=== PATIENT | male | born 1945 | race Caucasian/White ===

== ENCOUNTER → 2017-09-25 07:27 | Outpatient (CLI) | payer OTHER, SELFPAY ==
[2017-09-25 09:29] LABS: Add Manual Diff / Slide Review NO; Basophils Percent Auto 0.7 % (0-2); Eosinophils Percent Auto 2.4 % (2-4); Hematocrit 43.4 % (41-53); Hemoglobin 14.9 g/dL (13.5-17.5); Mean Corpuscular HGB Conc 34.4 % (30-36); Mean Corpuscular Volume 87.3 fL (80-100); Monocytes Percent Auto 6.7 % (3-14); Neutrophils Absolute Auto 4500 /uL (3000-5900); Neutrophils Percent Auto 68.2 % (50-75); Platelet Count 300 X10^3/uL (150-400); Red Blood Cell Count 4.97 X10^6/uL (4.5-5.9); Red Cell Distribution Width 12.4 % (11.6-14.8); White Blood Cell Count 6.6 X10^3/uL (4.5-11.0)
[2017-09-25 09:40] LABS: BUN Creatinine Ratio 28.9 (6-22); Blood Urea Nitrogen 26 mg/dL (9-20); Calcium 9.5 mg/dL (8.4-10.2); Carbon Dioxide 24 mmol/L (22-32); Chloride 104 mmol/L (98-107); Cholesterol 148 mg/dL (140-199); Estimated Glomerular Filt Rate > 60.0 mL/min (>60); Glucose 96 mg/dL (80-110); HDL Cholesterol 43 mg/dL (40-60); HEMOLYSIS < 15 (0-50); LDL Cholesterol Calculated 85 mg/dL (<100); Potassium 4.5 mmol/L (3.4-5.1); Sodium 141 mmol/L (137-145); Triglycerides 99 mg/dL (35-150)
== END ==
PROVIDERS: PCP Internal Medicine; Visit Provider Internal Medicine Cardiovascular Disease
DX: I10 Essential (primary) hypertension (principal); E78.5 Hyperlipidemia, unspecified; F41.9 Anxiety disorder, unspecified; H91.93 Unspecified hearing loss, bilateral
CPT/HCPCS: 36415; 80048; 80061; 85025

== ENCOUNTER → 2018-08-29 14:40 | Outpatient (CLI) | payer OTHER, SELFPAY | PROVIDERS: Family Provider Internal Medicine; PCP Internal Medicine; Visit Provider Physician Assistant | DX: N39.0 Urinary tract infection, site not specified (principal); R31.9 Hematuria, unspecified | CPT/HCPCS: 87086 ==

== ENCOUNTER → 2018-11-03 07:30 | Outpatient (CLI) | payer OTHER, SELFPAY ==
[2018-11-03 08:35] LABS: Add Manual Diff / Slide Review NO; Basophils Absolute Auto 0 /uL (0-100); Basophils Percent Auto 0.7 % (0-2); Eosinophils Absolute Auto 200 /uL (0-450); Eosinophils Percent Auto 3.6 % (2-4); Hematocrit 42.1 % (41-53); Hemoglobin 14.2 g/dL (13.5-17.5); Lymphocytes Absolute Auto 1300 /uL (1100-4500); Mean Corpuscular HGB Conc 33.7 % (30-36); Monocytes Absolute Auto 500 /uL (0-900); Monocytes Percent Auto 9.2 % (3-14); Neutrophils Absolute Auto 3000 /uL (1500-7000); Neutrophils Percent Auto 60.5 % (50-75); Platelet Count 238 X10^3/uL (150-400); Red Blood Cell Count 4.89 X10^6/uL (4.5-5.9); Red Cell Distribution Width 14.4 % (11.6-14.8); White Blood Cell Count 4.9 X10^3/uL (4.5-11.0)
[2018-11-03 09:00] LABS: BUN Creatinine Ratio 26.7 (6-22); Blood Urea Nitrogen 24 mg/dL (9-20); Calcium 9.6 mg/dL (8.4-10.2); Carbon Dioxide 23 mmol/L (22-32); Chloride 104 mmol/L (98-107); Cholesterol 137 mg/dL (140-199); Estimated Glomerular Filt Rate > 60.0 mL/min (>60); Glucose 95 mg/dL (80-110); HDL Cholesterol 48 mg/dL (40-60); HEMOLYSIS < 15 (0-50); LDL Cholesterol Calculated 74 mg/dL (<100); Potassium 4.7 mmol/L (3.4-5.1); Sodium 139 mmol/L (137-145); Triglycerides 77 mg/dL (35-150)
== END ==
PROVIDERS: Family Provider Internal Medicine; PCP Internal Medicine; Visit Provider Internal Medicine Cardiovascular Disease
DX: I10 Essential (primary) hypertension (principal)
CPT/HCPCS: 36415; 80048; 80061; 85025

== ENCOUNTER → 2019-01-15 13:37 | Outpatient (CLI) | payer OTHER, SELFPAY ==
--- NOTE | 2019-01-15 | DI.ECHO.S_ITS ---
[facility] +---------+ : : [address] : : : : [id number] : : : : Phone: [phone] Echocardiogram Report + + :Name: BABAR KAT Study Date: 01/15/2019 Height: 70 in : :[facility] Weight: 173 lb : : Gender: Male BSA: 2.0 m2 : :: 1945 Age: 73 yrs BP: 148/78 mmHg: :Reason For Study: Murmur : :Ordering Physician: Frida : :Guru Servin Performed By: Gege Noriega : :Referring: Dr. Norberto Hamm : + + Interpretation Summary 1) Normal left ventricular size, thickness, walltion, and systolic function (EF 60-65%). 2) Mildy enlarged right ventricle with borderline reduced systolic function. 3) Mild aortic stenosis present (valve area 1.8cm2, mean gradient 16mmHg). 4) No prior echo available for comparison. Procedure: A two-dimensional transthoracic echocardiogram with color flow and Doppler was performed. The study quality was technically good. There is no prior echocardiogram noted for this patient. The patient was in normal sinus rhythm during the exam. Left Ventricle: The left ventricle is normal in size, wall thickness, and systolic function without any focal wall motion abnormalities. The ejection fraction is estimated to be 60-65%. Diastolic function could not be accurately assessed due to unobtainable data. Right Ventricle: The right ventricle is mildly dilated. Right ventricular systolic function is borderline reduced. Atria: The left atrium is mildly dilated. Right atrial size is normal. The interatrial septum is intact with no evidence for an atrial septal defect. Mitral Valve: The mitral valve is normal in structure and function. There is no mitral regurgitation noted. Aortic Valve: The calculated aortic valve area is 1.8 cm2. The aortic valve area is 1.6 centimeters squared by planimetry. The peak aortic velocity is 2.7 m/sec. The aortic valve mean gradient is 16 mmHg. Severity ratio is 0.45. There is mild aortic stenosis. No aortic regurgitation is present. Tricuspid Valve: The tricuspid valve is normal in structure and function. No tricuspid regurgitation. Pulmonic Valve: The pulmonic valve is normal in structure and function. There is no pulmonic valvular regurgitation. Great Vessels: The aortic root is normal size. The dimensions of the ascending aorta are normal. The aortic arch is normal in size. The IVC is of normal diameter and collapses greater than 50% with a sniff. This suggests a low right atrial pressure of 3 mm Hg. Pericardium/ Pleura There is no pericardial effusion. There is no pleural effusion. MMode/2D Measurements & Calculations LVIDd: 5.2 cm LVOT diam: 2.3 cm LVIDs: 3.0 cm Ao root diam: 3.7 cm FS: 43.3 % Aortic Jxn: 3.2 cm EPSS: 0.38 cm asc Aorta Diam: 3.4 cm IVSd: 1.0 cm Ao Arch Diam (Prox Trans): 3.3 cm LVPWd: 1.1 cm LV pinto. diameter/BSA (cm/m^2): 2.7 LV sys. diameter/BSA (cm/m^2): 1.5 LA dimension: 3.9 cm RA long axis: 5.2 cm LA A2 area: 22.3 cm2 RA area: 18.9 cm2 LA A4 area: 24.7 cm2 RA vol: 57.9 ml LA length (vol): 5.5 cm RA : 29.5 ml/m2 LA vol: 84.2 ml IVC diam: 1.4 cm LA vol index: 42.9 ml/m2 RVDd major: 7.3 cm RVD1 (basal): 5.4 cm RVD2 (mid): 3.9 cm ELOY (plan): 1.6 cm2 Doppler Measurements & Calculations Ao V2 max: 274.1 cm/sec LVOT Max Rocky: 114.0 cm/sec Ao V2 mean: 186.4 cm/sec LV V1 max P.2 mmHg Ao max P.1 mmHg LV V1 VTI: 25.6 cm Ao mean P.1 mmHg ELOY(I,D): 1.9 cm2 Ao V2 VTI: 56.9 cm ELOY(V,D): 1.8 cm2 sev ratio: 0.45 ELOY indexed to BSA (cm^2/m^2): 0.99 MV E max rocky: 115.5 cm/sec PA V2 max: 124.4 cm/sec MV A max rocky: 135.7 cm/sec PA V2 mean: 94.2 cm/sec MV E/A: 0.85 PA mean P.8 mmHg Med Peak E' Rocky: 7.8 cm/sec PA Accel Time: 0.16 sec E/E' med: 14.8 Lat Peak E' Rocky: 7.7 cm/sec E/E' lat: 15.0 E/e' average: 14.9 MV dec time: 0.23 sec MV P1/2t: 70.4 msec MV P1/2t max rocky: 115.8 cm/sec SV(LVOT): 110.3 ml MVA(2t): 3.1 cm2 Reading Physician:09:37 PM
== END ==
PROVIDERS: Family Provider Internal Medicine; PCP Internal Medicine; Visit Provider Internal Medicine Cardiovascular Disease
DX: I35.0 Nonrheumatic aortic (valve) stenosis (principal); R01.1 Cardiac murmur, unspecified
CPT/HCPCS: 93306

== ENCOUNTER → 2019-08-19 10:53 | Outpatient (CLI) | payer OTHER, SELFPAY ==
[2019-08-19 13:31] LABS: Add Manual Diff / Slide Review NO; Basophils Absolute Auto 0 /uL (0-100); Basophils Percent Auto 0.5 % (0-2); Eosinophils Absolute Auto 0 /uL (0-450); Eosinophils Percent Auto 0.4 % (2-4); Hematocrit 39.8 % (41-53); Hemoglobin 13.6 g/dL (13.5-17.5); Lymphocytes Absolute Auto 700 /uL (1100-4500); Lymphocytes Percent Auto 11.9 % (25-40); Mean Corpuscular HGB Conc 34.3 % (30-36); Mean Corpuscular Hemoglobin 30.1 PG (26-34); Mean Corpuscular Volume 87.9 fL (80-100); Monocytes Absolute Auto 500 /uL (0-900); Monocytes Percent Auto 8.6 % (3-14); Neutrophils Absolute Auto 4700 /uL (1500-7000); Neutrophils Percent Auto 78.6 % (50-75); Platelet Count 237 X10^3/uL (150-400); Red Blood Cell Count 4.53 X10^6/uL (4.5-5.9); Red Cell Distribution Width 12.6 % (11.6-14.8)
[2019-08-19 13:46] LABS: Alanine Aminotransferase 18 IU/L (<50); Albumin 4.2 g/dL (3.5-5.0); Albumin Globulin Ratio 1.5 (1.0-2.8); Alkaline Phosphatase 61 U/L (38-126); Aspartate Aminotransferase 27 IU/L (17-59); BUN Creatinine Ratio 29.4 (6-22); Bilirubin Total 0.3 mg/dL (0.2-1.3); Blood Urea Nitrogen 32 mg/dL (9-20); C-Reactive Protein Quant 2.1 mg/dL (<1.0); Calcium 9.4 mg/dL (8.4-10.2); Carbon Dioxide 24 mmol/L (22-32); Chloride 106 mmol/L (98-107); Creatine Kinase 260 U/L (55-170); Estimated Glomerular Filt Rate > 60.0 mL/min (>60); Globulin 2.8 g/dL (1.7-4.1); Glucose 102 mg/dL (80-110); HEMOLYSIS < 15 (0-50); Sodium 140 mmol/L (137-145)
[2019-08-19 14:01] LABS: Erythrocyte Sedimentation Rate 32 MM/HR (0-15)
[2019-08-19 14:14] LABS: Prostate Specific Antigen Scrn 6.78 ng/mL (0.1-4.0)
[2019-08-19 14:15] LABS: TSH w/ Reflex to FT4 1.23 uIU/mL (0.47-4.68)
[2019-08-21 14:29] LABS: Arsenic 12 ug/L (2-23); Lead, Blood 1 ug/dL (0-4); Mercury, Blood 6.1 ug/L (0.0-14.9)
== END ==
PROVIDERS: Family Provider Internal Medicine; PCP Internal Medicine; Referring Provider Internal Medicine; Visit Provider Internal Medicine
DX: Z12.5 Encounter for screening for malignant neoplasm of prostate (principal); E78.2 Mixed hyperlipidemia; I10 Essential (primary) hypertension; R20.2 Paresthesia of skin; R53.1 Weakness
CPT/HCPCS: 80053; 82550; 83825; 84443; 85025; 85651; 86140; G0103

== ENCOUNTER → 2019-08-26 09:46 | Outpatient (CLI) | payer OTHER, SELFPAY ==
[2019-08-27 08:19] LABS: PSA Free % 30.4 % (.); PSA, Total 2.6 ng/mL (0.0-4.0)
== END ==
PROVIDERS: Family Provider Internal Medicine; PCP Internal Medicine; Referring Provider Internal Medicine; Visit Provider Internal Medicine
DX: R97.20 Elevated prostate specific antigen [PSA] (principal)
CPT/HCPCS: 36415; 84153; 84154

== ENCOUNTER 2019-08-31 09:47 | Emergency (ER) | payer OTHER, SELFPAY ==
[2019-08-31] VITALS (11 sets, daily range): BP systolic 126–174; BP diastolic 65–109; PULSE 66–81; RESP 13–24; TEMP 36.4; O2SAT 97–99
--- NOTE | 2019-08-31 10:04 | ED_ITS ---
HPI - Neuro Symptoms/Deficit General Chief Complaint: Neuro Symptoms/Deficit Stated Complaint: progressive quadraplega,incontience Time Seen by Provider: 08/31/19 09:54 Source: patient and family Mode of arrival: Wheelchair Limitations: no limitations History of Present Illness HPI Narrative: 74-year-old male former smoker with history of hypertension, hyperlipidemia presents with his brother in the chief complaint of progressive worsening constellation of neurologic symptoms over the past 4-6 weeks. He has had increasing weakness of upper and lower extremities which is reported to be equal bilaterally and increasing to the point that he now can no longer ambulate even with the help of a walker. About 10 days ago or so, he lost control of his bladder and has been wearing briefs ever since. He denies any head pain, blurred vision or trouble with speech. He has had no trauma or injury. He denies any fever or shaking chills. He has been seen by his PCP and outpatient imaging is ordered, but patient's symptoms have worsened to the point of needing more prompt evaluation. Onset (ago): week(s) Location: left arm, right arm, left leg, right leg and ataxia History of same: No Severity: severe Quality: weak and constant Relieving factors: none Exacerbating factors: none Context: gradual onset On Anticoagulants: No Associated symptoms: denies other symptoms Treatments Prior to Arrival: none Related Data Home Medications Medication Instructions Recorded Confirmed amlodipine 10 mg tablet 10 mg PO BEDTIME tab 08/19/19 08/31/19 atorvastatin 10 mg tablet 10 mg PO BEDTIME tab 08/19/19 08/31/19 losartan 100 mg tablet 100 mg PO BEDTIME tab 08/19/19 08/31/19 minoxidil 10 mg tablet 10 mg PO QAM tab 08/19/19 08/31/19 Allergies Allergy/AdvReac Type Severity Reaction Status Date / Time clonidine AdvReac Intermediate Fatigue Verified 08/31/19 11:03 metoprolol AdvReac Intermediate Fatigue Verified 08/31/19 11:03 Review of Systems Constitutional Constitutional: Denies chills, Denies fatigue, Denies fever(s), Denies frequent falls, Denies lethargy and Reports weakness Eyes Eyes: Denies change in vision, Denies eye discharge, Denies irritation and Denies loss of vision ENT Ears, Nose, Mouth, and Throat: Denies change in voice, Denies dizziness, Denies neck pain, Denies sore throat and Denies throat swelling Cardiovascular Cardiovascular: Denies chest pain, Denies irregular heart rhythm, Denies lightheadedness, Denies palpitations, Denies dyspnea, Denies dyspnea on exertion and Denies orthopnea Respiratory Respiratory: Denies cough, Denies dyspnea, Denies dyspnea on exertion and Denies wheezing Gastrointestinal Gastrointestinal: Denies abdominal pain, Denies change in bowel habits, Denies d iarrhea, Denies nausea and Denies vomiting Genitourinary Genitourinary: Denies hematuria, Denies flank pain, Denies urinary incontinence and Denies urinary urgency Musculoskeletal Musculoskeletal: Reports abnormal gait, Denies back pain, Denies muscle weakness, Denies neck pain, Denies numbness and Denies tingling Integumentary/Breasts Skin/Breast: Denies pruritus, Denies erythema, Denies rash and Denies wounds Neurologic Neurologic: Reports abnormal gait, Denies behavioral changes, Denies confusion, Denies dizziness, Denies frequent falls, Denies loss of vision, Denies numbness, Denies tingling and Reports weakness Psychiatric Psychiatric: Denies anxiety, Denies behavioral changes, Denies confusion, Denies depression, Denies homicidal ideation and Denies suicidal ideation Endocrine Endocrine: Denies fatigue, Denies flushing and Denies palpitations Hematologic/Lymphatic Hematologic/Lymphatic: Denies easy bruising Allergic/Immunologic Allergic/Immunologic: Denies urticaria, Denies throat swelling and Denies wheezing Patient History Medical History Essential hypertension (Chronic 01/11/15) Mixed hyperlipidemia (Chronic) Social History Smoking Status: Former smoker Smoking Status: Former smoker Exam Narrative Exam Narrative: GENERAL: [74] year old patient appears stated age. Well- nourished, well-developed patient, in mild distress. Weak, trunk appears to be listing to the left HEAD: Atraumatic. Normocephalic. EYES: Pupils equal round and reactive. Extraocular motions intact. No scleral icterus. No injection or drainage. ENT: Nose without bleeding, purulent drainage. Throat without erythema, tonsillar hypertrophy or exudate. Airway patent. NECK: Trachea midline. Non tender CARDIOVASCULAR: Regular rate and rhythm without murmurs, gallops, or rubs. RESPIRATORY: Clear to auscultation. Breath sounds equal bilaterally. No wheezes, rales, or rhonchi. GASTROINTESTINAL: Abdomen soft, non-tender, lower suprapubic fullness. Adult brief on RECTAL: no appreciated rectal tone EXTREMITIES: No edema or joint tenderness. BACK: Nontender without deformity or crepitance. No flank tenderness. NEURO: AOx3. No facial weakness or speech trouble. LUE 3/5 strength, RUE 5/5. LLE 4/5 strength. RLE 5/5. No obvious sensory deficit, perhaps slightly decreased in groin. R patellar reflex 2+. L patellar reflex increased with myoclonus. SKIN: No rash or erythema of visible areas Initial Vital Signs Initial Vital Signs: Vital Signs Temperature 97.6 F 08/31/19 10:04 Pulse Rate 79 08/31/19 10:04 Respiratory Rate 13 08/31/19 10:04 Blood Pressure 171/78 H 08/31/19 10:04 Pulse Oximetry 98 08/31/19 10:04 Course Course Course Narrative: initial call to [facility] neuro to discuss imaging preference prior to ordered. After discussion of case recommendation was to perform MRI head w/wo and C Spine w/wo. Discussion to perform imaging on entire spine, but recommendation against this for now as symptoms include upper extremities. Later in visit it becomes apparent that patient is Rich[place] at which point calls are directed through [facility]. I have also spoken with their neurosurgeon who recommends transfer and addition of decardon 4mg q6. Orders Ordered: ED Orders 08/31/19 10:50 Urinalysis and Microscopic Stat Urine Culture Stat Urine Drug Screen, Rapid Stat 08/31/19 10:55 MR cervical spine wo/w con Stat MR head/brain wo/w con Stat 08/31/19 19:24 Basic Metabolic Panel Stat Sodium Chloride (Normal Saline 0.9%) 1,000 mls @ 150 mls/hr IV CONT CAMERON Last Infusion: 08/31/19 15:08 Dose: 0 mls/hr Documented by: Infusion: 08/31/19 13:58 Dose: 999 mls/hr Documented by: Admin: 08/31/19 10:41 Dose: 150 mls/hr Documented by: LAINEY Sodium Chloride (Normal Saline 0.9%) 1,000 mls @ 150 mls/hr IV BOLUS ONE Stop: 09/01/19 02:09 Last Admin: 08/31/19 19:32 Dose: 150 mls/hr Documented by: LAINEY Discontinued Medications Dexamethasone (Decadron) 4 mg IV NOW ONE Stop: 08/31/19 19:20 Last Admin: 08/31/19 19:32 Dose: 4 mg Documented by: LAINEY Ceftriaxone Sodium/Dextrose (Rocephin) 1 gm in 50 mls @ 100 mls/hr IV NOW ONE Stop: 08/31/19 11:45 Last Infusion: 08/31/19 12:33 Dose: 0 mls/hr Documented by: Admin: 08/31/19 11:54 Dose: 100 mls/hr Documented by: LAINEY Lorazepam (Ativan) 0.5 mg IV NOW ONE Stop: 08/31/19 12:03 Last Admin: 08/31/19 12:06 Dose: 0.5 mg Documented by: LAINEY Lorazepam (Ativan) 1 mg IV NOW ONE Stop: 08/31/19 14:34 Last Admin: 08/31/19 14:45 Dose: 1 mg Documented by: LAINEY Reevaluation(s) Reevaluation #1: patient with impressive urinary retention and upwards of 3L in curtis bag after a few hours. UA notes UTI Vital Signs Vital signs: Vital Signs - 8 hr 08/31/19 12:15 08/31/19 13:30 08/31/19 14:30 Pulse Rate 75 70 77 Respiratory Rate 16 22 18 Blood Pressure [Right Arm] 174/86 H 143/78 H 153/87 H Pulse Oximetry 99 98 98 08/31/19 16:21 08/31/19 17:28 08/31/19 19:00 Pulse Rate 78 77 78 Respiratory Rate 16 20 18 Blood Pressure [Right Arm] 137/74 140/69 143/100 H Pulse Oximetry 99 98 98 MDM - Neuro Symptoms/Deficit Lab Data Result diagrams: 08/31/19 10:25 08/31/19 10:25 Labs: Lab Results 08/31/19 08/31/19 08/31/19 Range/Units 10:25 10:25 10:25 WBC 6.2 (4.5-11.0) X10^3/uL RBC 4.41 L (4.5-5.9) X10^6/uL Hgb 13.2 L (13.5-17.5) g/dL Hct 38.3 L (41-53) % MCV 86.8 (80-100) fL MCH 30.0 (26-34) PG MCHC 34.6 (30-36) % RDW 12.9 (11.6-14.8) % Plt Count 245 (150-400) X10^3/uL Neut % (Auto) 74.8 (50-75) % Lymph % (Auto) 11.0 L (25-40) % [place] % (Auto) 10.5 (3-14) % Eos % (Auto) 3.0 (2-4) % Baso % (Auto) 0.7 (0-2) % Neut # (Auto) 4600 (9075-5940) /uL Lymph # (Auto) 700 L (1184-1180) /uL [place] # (Auto) 700 (0-900) /uL Eos # (Auto) 200 (0-450) /uL Baso # (Auto) 0 (0-100) /uL PT 12.8 H (10.1-12.7) SECONDS INR 1.1 (0.9-1.3) APTT 31 (26.4-36.2) SECONDS Sodium 140 (137-145) mmol/L Potassium 4.9 (3.4-5.1) mmol/L Chloride 108 H (98-107) mmol/L Carbon Dioxide 22 (22-32) mmol/L BUN 38 H (9-20) mg/dL Creatinine 1.34 H (0.66-1.25) mg/dL Estimated GFR 52.1 L (>60) mL/min BUN/Creatinine Ratio 28.4 H (6-22) Glucose 108 (80-110) mg/dL Calcium 9.3 (8.4-10.2) mg/dL Total Creatine Kinase 293 H (55-170) U/L CK-MB (CK-2) 5.98 H (<2.37) ng/mL CK-MB (CK-2) Rel Index 2.0 (1.5-5.0) % Troponin I < 0.012 (0.01-0.034) ng/mL Urine Color Urine Appearance Urine pH (4.5-8.0) Ur Specific [place] (1.000-1.035) Urine Protein (Negative) Urine Glucose (UA) (Negative) g/dL Urine Ketones (NEGATIVE) Urine Occult Blood (Negative) Urine Nitrate (Negative) Urine Bilirubin (NEGATIVE) Urine Urobilinogen (0.2) E.U./dL Ur Leukocyte Esterase (NEGATIVE) Urine RBC (0-5/HPF) Urine WBC (0-5/HPF) Urine Bacteria (None) Ur Culture Indicated? U Opiates 300ng/mL cut (Negative) Ur Oxycodone Screen (Negative) Urine Methadone Screen (Negative) Ur Barbiturates Screen (Negative) U Tricyclic Antidepress (Negative) Ur Phencyclidine Scrn (Negative) Ur Amphetamines Screen (Negative) U Methamphetamines Scrn (Negative) Ur MDMA Scrn (Ecstasy) (Negative) U Benzodiazepines Scrn (Negative) Urine Cocaine Screen (Negative) U Marijuana (THC) Screen (Negative) 08/31/19 08/31/19 Range/Units 10:50 10:50 WBC (4.5-11.0) X10^3/uL RBC (4.5-5.9) X10^6/uL Hgb (13.5-17.5) g/dL Hct (41-53) % MCV (80-100) fL MCH (26-34) PG MCHC (30-36) % RDW (11.6-14.8) % Plt Count (150-400) X10^3/uL Neut % (Auto) (50-75) % Lymph % (Auto) (25-40) % [place] % (Auto) (3-14) % Eos % (Auto) (2-4) % Baso % (Auto) (0-2) % Neut # (Auto) (6222-1452) /uL Lymph # (Auto) (6308-4210) /uL [place] # (Auto) (0-900) /uL Eos # (Auto) (0-450) /uL Baso # (Auto) (0-100) /uL PT (10.1-12.7) SECONDS INR (0.9-1.3) APTT (26.4-36.2) SECONDS Sodium (137-145) mmol/L Potassium (3.4-5.1) mmol/L Chloride (98-107) mmol/L Carbon Dioxide (22-32) mmol/L BUN (9-20) mg/dL Creatinine (0.66-1.25) mg/dL Estimated GFR (>60) mL/min BUN/Creatinine Ratio (6-22) Glucose (80-110) mg/dL Calcium (8.4-10.2) mg/dL Total Creatine Kinase (55-170) U/L CK-MB (CK-2) (<2.37) ng/mL CK-MB (CK-2) Rel Index (1.5-5.0) % Troponin I (0.01-0.034) ng/mL Urine Color Yellow Urine Appearance Cloudy Urine pH 6.5 (4.5-8.0) Ur Specific [place] 1.010 (1.000-1.035) Urine Protein Trace H (Negative) Urine Glucose (UA) Negative (Negative) g/dL Urine Ketones Negative (NEGATIVE) Urine Occult Blood 3+ H (Negative) Urine Nitrate Positive (Negative) Urine Bilirubin Negative (NEGATIVE) Urine Urobilinogen 0.2 (0.2) E.U./dL Ur Leukocyte Esterase 3+ H (NEGATIVE) Urine RBC 1-5/hpf (0-5/HPF) Urine WBC >100/hpf H (0-5/HPF) Urine Bacteria Many (>30) H (None) Ur Culture Indicated? Specimen cultured U Opiates 300ng/mL cut Negative (Negative) Ur Oxycodone Screen Negative (Negative) Urine Methadone Screen Negative (Negative) Ur Barbiturates Screen Negative (Negative) U Tricyclic Antidepress Negative (Negative) Ur Phencyclidine Scrn Negative (Negative) Ur Amphetamines Screen Negative (Negative) U Methamphetamines Scrn Negative (Negative) Ur MDMA Scrn (Ecstasy) Negative (Negative) U Benzodiazepines Scrn Negative (Negative) Urine Cocaine Screen Negative (Negative) U Marijuana (THC) Screen Negative (Negative) Imaging Data CT scan - head: Radiologist's Impression: Thanh Cowan M [address] [address] [address] Scan Report Signed Patient: Thanh Cowan RMR#: [id number] : 6Acct:[id number] Age/Sex: 74 / MDate of Service: 08/31/19 Loc: ED Accession Number: [id number] Procedure: CT head/brain wo con Ordering Provider: Danny Abrams D.O. PROCEDURE: CT HEAD/BRAIN WO CON INDICATIONS: progressive neurologic problem, numbness, tingling TECHNIQUE: Noncontrast 4.5 mm thick angled axial sections acquired from the foramen magnum to the vertex, with coronal and sagittal reformats. For radiation dose reduction, the following was used: automated exposure control, adjustment of mA and/or kV according to patient size. COMPARISON: None. FINDINGS: Image quality: Excellent. CSF spaces: Basal cisterns are patent. No extra-axial fluid collections. The ventricles are symmetric in size and shape. Brain: No intracranial bleeds or masses. There is cerebral volume loss for ag e, with resultant ventricular and sulcal prominence. There are periventricular and deep white matter chronic small vessel ischemic changes. There is intracranial internal carotid artery atherosclerosis. Skull and face: Calvarium and visualized facial bones appear intact, without suspicious lesions. Sinuses: Visualized sinuses and mastoids are clear. IMPRESSION: No acute intracranial disease process. Dictated by: Ann Marie Alcantar MD, PhD on 08/31/2019 at 10:46 Approved by: Ann Marie Alcantar MD, PhD on 08/31/2019 at 10:48 Brain / CSpine MRI: Radiologist's Impression: Thanh Cowan Jean 74 M 1945 [place] [address] Magnetic Resonance Report Signed Patient: Thanh Cowan RMR#: [id number] : 1945cct:[id number] Age/Sex: 74 / MDate of Service: 08/31/19 Loc: ED Accession Number: [id number] Procedure: MR head/brain wo/w con Ordering Provider: Danny Abrams D.O. PROCEDURE: MR HEAD/BRAIN WO/W CON INDICATIONS: progressive unilateral weakness, fatigue, per neuro TECHNIQUE: Noncontrast axial T1 spin echo, axial T2 fast spin echo, sagittal and axial FLAIR, coronal T2 fast spin echo, axial gradient echo, axial diffusion and ADC through the brain. After the administration of contrast, axial and coronal T1 spin echo with fat saturation through the brain. COMPARISON: [facility], , MR CERVICAL SPINE WO/W CON, 08/31/2019, 15:32. [facility], CT, CT HEAD/BRAIN WO CON, 08/31/2019, 10:04. FINDINGS: Image quality: Partially degraded by motion artifact. CSF spaces: Basal cisterns are patent. No extra-axial fluid collections. Ventricles are normal in size and shape. Brain: No midline shift. There is a day 6 mm high T1 signal intensity focus within the left superior anterior parietal lobe. There is a small amount of surrounding curvilinear low gradient echo signal intensity. No abnormal intracranial enhancement. There is cerebral volume loss for age. There is periventricular white matter chronic small vessel ischemic change. The brainstem appears normal. Diffusion-weighted images demonstrate no acute ischemic insults. No chronic ischemic insults. Normal intravascular flow voids are present. Skull and face: Calvarial marrow is normal in signal. Orbits appear normal. Sinuses: Sinuses and mastoids appear clear. IMPRESSION: 1. Small amount of left superior parietal intraparenchymal hemorrhage possibly secondary to underlying cavernoma, hemorrhagic infarct, or parenchymal mass. 2. Followup brain MRI with and without intravenous contrast in one month is recommended to ensure resolution, and to exclude underlying mass lesion. 3. Findings discussed with Dr. Abrams on 08.31.19 at 1628 hrs. Dictated by: Winsome Alvarado M.D. on 08/31/2019 at 16:24 Approved by: Winsome Alvarado M.D. on 08/31/2019 at 16:29 [facility] DATE TYPE STATUS AUTHOR Hx 08/31/19 10:55 Cristina Ortega 08/31/19 10:55 Winsome Alvarado 08/31/19 10:07 Ann Marie Alcantar 01/15/19 00:00 Frida Servin Keysha Cowanjuvenal Padilla, M0 1945 [facility] R11 80.739kg Neuro Symptoms/Deficit Search Chart No Data to Display Fatigue Fatigue ONSET 01/11/15 Today 19:00 Thanh Cowan M 1945 [address] [address] Magnetic Resonance Report Signed Patient: Thanh Cowan RMR#: [id number] : 1945cct:[id number] Age/Sex: 74 / MDate of Service: 08/31/19 Loc: ED Accession Number: [id number] Procedure: MR cervical spine wo/w con Ordering Provider: Danny Abrams D.O. PROCEDURE: MR CERVICAL SPINE WO/W CON INDICATIONS: progressive weakness, numbness, per neuro TECHNIQUE: Noncontrast sagittal T1 spin echo and T2 fast spin echo, sagittal STIR, foraminal oblique sagittal T2 fast spin echo, axial gradient echo or T2 fast spin echo through the cervical spine. After the administration of contrast, axial and sagittal T1 spin echo with fat saturation through the cervical spine. COMPARISON: None. FINDINGS: Image quality: Significantly limited exam secondary to patient motion. Alignment and curvature: There is trace retrolisthesis of C2 on C3, C3 on C4, C4-C5, C5 and C6, C6 on C7, trace anterolisthesis of T1 on T2. Marrow: Marrow is normal in overall signal, without suspicious enhancement. Spinal cord: Visualized spinal cord has normal size and signal. No cerebellar tonsillar herniation. No abnormal intramedullary enhancement. Paraspinous soft tissues: No paravertebral masses or suspicious enhancement. Discs: Severe desiccation is present throughout the cervical spine. C2-3: Mild disc bulge without spinal stenosis. There is at least moderate bilateral foraminal narrowing with uncovertebral hypertrophy. C3-4: Mild disc bulge with severe spinal stenosis and canal flattening. There is at least moderate to severe bilateral foraminal narrowing with uncovertebral hypertrophy. C4-5: Mild disc bulge with severe spinal stenosis and canal flattening. There is severe bilateral foraminal narrowing with uncovertebral hypertrophy. C5-6: Mild disc bulge with severe spinal stenosis and canal flattening. Severe bilateral foraminal narrowing with uncovertebral hypertrophy. C6-7: Mild disc bulge with moderate to severe spinal stenosis. Severe bilateral foraminal narrowing with uncovertebral hypertrophy. C7-T1: Mild disc bulge with moderate to severe spinal stenosis. Foramina are poorly evaluated. There is at least moderate to severe right and moderate left foraminal narrowing with uncovertebral hypertrophy. IMPRESSION: 1. Severely limited exam secondary to motion. 2. Multiple disc bulges. 3. Multilevel severe spinal stenosis secondary to disc bulges. 4. Multilevel moderate to severe foraminal narrowing secondary to uncovertebral arthropathy. Dictated by: Cristina Ortega M.D. on 08/31/2019 at 16:57 Approved by: Cristina Ortega M.D. on 08/31/2019 at 17:00 Critical Care Time Critical Care Time Critical Care Time: Yes Total Critical Care Time: 45 Attestation: The high probability of a clinically significant, sudden or life threatening deterioration of the [Neuro] system(s) required my full and direct attention, intervention and personal management. The aggregate critical care time was 45 minutes. This time is in addition to time spent performing reported procedures but includes the following: x Data Review and interpretation x Patient assessment and monitoring of vital signs x Documentation x Medication orders and management Discharge Plan Departure Patient Disposition: [facility] Clinical Impression: Focal myoclonus, Acute UTI, Acute urinary retention, Cervical spinal stenosis Radiculopathy Qualifiers: Spinal region: unspecified Qualified Code(s): M54.10 - Radiculopathy, site unspecified Prescriptions: No Action losartan 100 mg tablet 100 mg PO BEDTIME RF: 0 amlodipine 10 mg tablet 10 mg PO BEDTIME RF: 0 atorvastatin 10 mg tablet 10 mg PO BEDTIME RF: 0 minoxidil 10 mg tablet 10 mg PO QAM RF: 0 Referrals: Norberto Hamm MD [Primary Care Provider] -
--- NOTE | 2019-08-31 10:07 | DI.CT.S_ITS ---
PROCEDURE: CT HEAD/BRAIN WO CON INDICATIONS: progressive neurologic problem, numbness, tingling TECHNIQUE: Noncontrast 4.5 mm thick angled axial sections acquired from the foramen magnum to the vertex, with coronal and sagittal reformats. For radiation dose reduction, the following was used: automated exposure control, adjustment of mA and/or kV according to patient size. COMPARISON: None. FINDINGS: Image quality: Excellent. CSF spaces: Basal cisterns are patent. No extra-axial fluid collections. The ventricles are symmetric in size and shape. Brain: No intracranial bleeds or masses. There is cerebral volume loss for age, with resultant ventricular and sulcal prominence. There are periventricular and deep white matter chronic small vessel ischemic changes. There is intracranial internal carotid artery atherosclerosis. Skull and face: Calvarium and visualized facial bones appear intact, without suspicious lesions. Sinuses: Visualized sinuses and mastoids are clear. IMPRESSION: No acute intracranial disease process. Dictated by: Ann Marie Alcantar MD, PhD on 08/31/2019 at 10:46 Approved by: Ann Marie Alcantar MD, PhD on 08/31/2019 at 10:48
[2019-08-31 10:34] LABS: Add Manual Diff / Slide Review NO; Basophils Absolute Auto 0 /uL (0-100); Basophils Percent Auto 0.7 % (0-2); Eosinophils Absolute Auto 200 /uL (0-450); Hematocrit 38.3 % (41-53); Hemoglobin 13.2 g/dL (13.5-17.5); Lymphocytes Absolute Auto 700 /uL (1100-4500); Mean Corpuscular HGB Conc 34.6 % (30-36); Mean Corpuscular Volume 86.8 fL (80-100); Monocytes Absolute Auto 700 /uL (0-900); Monocytes Percent Auto 10.5 % (3-14); Neutrophils Absolute Auto 4600 /uL (1500-7000); Neutrophils Percent Auto 74.8 % (50-75); Platelet Count 245 X10^3/uL (150-400); Red Blood Cell Count 4.41 X10^6/uL (4.5-5.9); Red Cell Distribution Width 12.9 % (11.6-14.8); White Blood Cell Count 6.2 X10^3/uL (4.5-11.0)
[2019-08-31 10:38] LABS: INR 1.1 (0.9-1.3); Prothrombin Time 12.8 SECONDS (10.1-12.7)
[2019-08-31 10:41] LABS: PTT Partial Thromboplastin Tim 31 SECONDS (26.4-36.2)
[2019-08-31] MEDS: SODIUM CHLORIDE 0.9% 1,000 ML 150 ML IV ×2 (10:41→19:32)
[2019-08-31 10:43] LABS: BUN Creatinine Ratio 28.4 (6-22); Blood Urea Nitrogen 38 mg/dL (9-20); Calcium 9.3 mg/dL (8.4-10.2); Carbon Dioxide 22 mmol/L (22-32); Chloride 108 mmol/L (98-107); Creatine Kinase 293 U/L (55-170); Estimated Glomerular Filt Rate 52.1 mL/min (>60); Glucose 108 mg/dL (80-110); HEMOLYSIS < 15 (0-50); Potassium 4.9 mmol/L (3.4-5.1); Sodium 140 mmol/L (137-145)
[2019-08-31 10:54] LABS: Troponin I < 0.012 ng/mL (0.01-0.034)
[2019-08-31] MEDS: LIDOCAINE 2% (UROJET) 5 ML GEL (10:55)
--- NOTE | 2019-08-31 10:55 | DI.MRI.S_ITS ---
PROCEDURE: MR HEAD/BRAIN WO/W CON INDICATIONS: progressive unilateral weakness, fatigue, per neuro TECHNIQUE: Noncontrast axial T1 spin echo, axial T2 fast spin echo, sagittal and axial FLAIR, coronal T2 fast spin echo, axial gradient echo, axial diffusion and ADC through the brain. After the administration of contrast, axial and coronal T1 spin echo with fat saturation through the brain. COMPARISON: [facility], MR, MR CERVICAL SPINE WO/W CON, 08/31/2019, 15:32. [facility], CT, CT HEAD/BRAIN WO CON, 08/31/2019, 10:04. FINDINGS: Image quality: Partially degraded by motion artifact. CSF spaces: Basal cisterns are patent. No extra-axial fluid collections. Ventricles are normal in size and shape. Brain: No midline shift. There is a day 6 mm high T1 signal intensity focus within the left superior anterior parietal lobe. There is a small amount of surrounding curvilinear low gradient echo signal intensity. No abnormal intracranial enhancement. There is cerebral volume loss for age. There is periventricular white matter chronic small vessel ischemic change. The brainstem appears normal. Diffusion-weighted images demonstrate no acute ischemic insults. No chronic ischemic insults. Normal intravascular flow voids are present. Skull and face: Calvarial marrow is normal in signal. Orbits appear normal. Sinuses: Sinuses and mastoids appear clear. IMPRESSION: 1. Small amount of left superior parietal intraparenchymal hemorrhage possibly secondary to underlying cavernoma, hemorrhagic infarct, or parenchymal mass. 2. Followup brain MRI with and without intravenous contrast in one month is recommended to ensure resolution, and to exclude underlying mass lesion. 3. Findings discussed with Dr. Abrams on 08.31.19 at 1628 hrs. Dictated by: Winsome Alvarado M.D. on 08/31/2019 at 16:24 Approved by: Winsome Alvarado M.D. on 08/31/2019 at 16:29
--- NOTE | 2019-08-31 10:55 | DI.MRI.S_ITS ---
PROCEDURE: MR CERVICAL SPINE WO/W CON INDICATIONS: progressive weakness, numbness, per neuro TECHNIQUE: Noncontrast sagittal T1 spin echo and T2 fast spin echo, sagittal STIR, foraminal oblique sagittal T2 fast spin echo, axial gradient echo or T2 fast spin echo through the cervical spine. After the administration of contrast, axial and sagittal T1 spin echo with fat saturation through the cervical spine. COMPARISON: None. FINDINGS: Image quality: Significantly limited exam secondary to patient motion. Alignment and curvature: There is trace retrolisthesis of C2 on C3, C3 on C4, C4-C5, C5 and C6, C6 on C7, trace anterolisthesis of T1 on T2. Marrow: Marrow is normal in overall signal, without suspicious enhancement. Spinal cord: Visualized spinal cord has normal size and signal. No cerebellar tonsillar herniation. No abnormal intramedullary enhancement. Paraspinous soft tissues: No paravertebral masses or suspicious enhancement. Discs: Severe desiccation is present throughout the cervical spine. C2-3: Mild disc bulge without spinal stenosis. There is at least moderate bilateral foraminal narrowing with uncovertebral hypertrophy. C3-4: Mild disc bulge with severe spinal stenosis and canal flattening. There is at least moderate to severe bilateral foraminal narrowing with uncovertebral hypertrophy. C4-5: Mild disc bulge with severe spinal stenosis and canal flattening. There is severe bilateral foraminal narrowing with uncovertebral hypertrophy. C5-6: Mild disc bulge with severe spinal stenosis and canal flattening. Severe bilateral foraminal narrowing with uncovertebral hypertrophy. C6-7: Mild disc bulge with moderate to severe spinal stenosis. Severe bilateral foraminal narrowing with uncovertebral hypertrophy. C7-T1: Mild disc bulge with moderate to severe spinal stenosis. Foramina are poorly evaluated. There is at least moderate to severe right and moderate left foraminal narrowing with uncovertebral hypertrophy. IMPRESSION: 1. Severely limited exam secondary to motion. 2. Multiple disc bulges. 3. Multilevel severe spinal stenosis secondary to disc bulges. 4. Multilevel moderate to severe foraminal narrowing secondary to uncovertebral arthropathy. Dictated by: Cristina Ortega M.D. on 08/31/2019 at 16:57 Approved by: Cristina Ortega M.D. on 08/31/2019 at 17:00
[2019-08-31 10:58] LABS: Creatine Kinase MB 5.98 ng/mL (<2.37)
[2019-08-31 11:03] LABS: Appearance Urine UA CLOUDY; Bilirubin Urine UA NEGATIVE (NEGATIVE); Color Urine UA YELLOW; Glucose Urine UA NEGATIVE (Negative); Ketones Urine UA NEGATIVE (NEGATIVE); Leukocyte Esterase Urine UA 3+ (NEGATIVE); Nitrite Urine UA POSITIVE (Negative); Occult Blood Urine UA 3+ (Negative); Protein Urine UA TRACE (Negative); Urobilinogen Urine UA 0.2 E.U./dL (0.2); pH Urine UA 6.5 (4.5-8.0)
[2019-08-31 11:07] LABS: UR Morphine/Opiate cutoff 300 Negative (Negative); Ur Creatinine Normal (Normal); Ur Specific Gravity Normal (Normal); Urine Amphetamines Negative (Negative); Urine Barbiturates Negative (Negative); Urine Benzodiazepines Negative (Negative); Urine Cocaine Negative (Negative); Urine MDMA Negative (Negative); Urine Methadone Negative (Negative); Urine Methamphetamines Negative (Negative); Urine Oxycodone Negative (Negative); Urine Phencyclidine Negative (Negative); Urine Tetrahydrocannabinol Negative (Negative); Urine Tricyclic Antidepressant Negative (Negative); Urine pH Normal (Normal)
[2019-08-31 11:14] LABS: Bacteria Urine Many (>30); Culture Indicated Urine Specimen Cultured; RBC Urine 1-5/HPF (0-5/HPF); WBC Urine >100/HPF (0-5/HPF)
[2019-08-31] MEDS: CEFTRIAXONE 1 GM/50 ML FROZ.PIGGY IV (11:54)
[2019-08-31] MEDS: LORazepam 2 MG/ML INJ 0.5 MG IV (12:06)
[2019-08-31] MEDS: LORazepam 2 MG/ML INJ 1 MG IV (14:45)
[2019-08-31] MEDS: DEXAMETHASONE 4 MG/ML VIAL IV (19:32)
[2019-08-31 19:54] LABS: BUN Creatinine Ratio 27.8 (6-22); Blood Urea Nitrogen 32 mg/dL (9-20); Calcium 9.1 mg/dL (8.4-10.2); Carbon Dioxide 24 mmol/L (22-32); Chloride 109 mmol/L (98-107); Estimated Glomerular Filt Rate > 60.0 mL/min (>60); Glucose 95 mg/dL (80-110); HEMOLYSIS < 15 (0-50); Potassium 4.7 mmol/L (3.4-5.1); Sodium 140 mmol/L (137-145)
== END 2019-08-31 22:58 | disposition short-term general hospital (02) ==
PROVIDERS: Emergency Provider Emergency Medicine; Family Provider Internal Medicine; PCP Internal Medicine
DX: G25.3 Myoclonus (principal); N39.0 Urinary tract infection, site not specified; R33.8 Other retention of urine; M48.02 Spinal stenosis, cervical region; M54.10 Radiculopathy, site unspecified; I10 Essential (primary) hypertension; E78.5 Hyperlipidemia, unspecified; R53.1 Weakness
CPT/HCPCS: 36415; 51701; 70450; 70553; 72156; 80048; 80305; 81001; 82550; 82553; 84484; 85025; 85610; 85730; 87077; 87086; 87147; 87186; 93005; 93010; 96365; 96375; 96376; 99285; 99291; Q3014; A9579; J1100; J2060

== ENCOUNTER → 2019-09-19 10:23 | Outpatient (ROUT) | payer OTHER, SELFPAY ==
[2019-09-20 01:11] LABS: COVID19 Sendout Not Detected (Not Detect)
== END ==
PROVIDERS: Family Provider Internal Medicine; PCP Internal Medicine; Visit Provider Internal Medicine
DX: Z11.59 Encounter for screening for other viral diseases (principal)
CPT/HCPCS: 87635

== ENCOUNTER → 2019-09-20 22:05 | Outpatient (ROUT) | payer OTHER, SELFPAY ==
[2019-09-20 22:17] LABS: Appearance Urine UA CLEAR; Bilirubin Urine UA NEGATIVE (NEGATIVE); Color Urine UA YELLOW; Glucose Urine UA NEGATIVE (Negative); Ketones Urine UA NEGATIVE (NEGATIVE); Leukocyte Esterase Urine UA TRACE (NEGATIVE); Nitrite Urine UA POSITIVE (Negative); Occult Blood Urine UA 3+ (Negative); Protein Urine UA NEGATIVE (Negative); Urobilinogen Urine UA 0.2 E.U./dL (0.2); pH Urine UA 5.5 (4.5-8.0)
[2019-09-20 22:36] LABS: Bacteria Urine Few (2-10); Culture Indicated Urine Specimen Cultured; RBC Urine 5-10/HPF (0-5/HPF); WBC Urine 0-1/HPF (0-5/HPF)
== END ==
PROVIDERS: Family Provider Internal Medicine; PCP Internal Medicine; Visit Provider Nurse Practitioner
DX: N39.0 Urinary tract infection, site not specified (principal)
CPT/HCPCS: 81001; 87086

== ENCOUNTER → 2019-11-23 09:09 | Outpatient (CLI) | payer OTHER, SELFPAY ==
[2019-11-23 11:06] LABS: Prostate Specific Antigen 5.46 ng/mL (0.10-4.00)
== END ==
PROVIDERS: Family Provider Internal Medicine; PCP Internal Medicine; Referring Provider Specialist; Visit Provider Specialist
DX: R97.20 Elevated prostate specific antigen [PSA] (principal); N40.1 Benign prostatic hyperplasia with lower urinary tract symptoms; N13.8 Other obstructive and reflux uropathy; R33.9 Retention of urine, unspecified; K42.9 Umbilical hernia without obstruction or gangrene; Z87.440 Personal history of urinary (tract) infections
CPT/HCPCS: 36415; 84153; 99214

== ENCOUNTER → 2020-02-01 07:55 | Outpatient (CLI) | payer OTHER, SELFPAY ==
[2020-02-01 08:43] LABS: Add Manual Diff / Slide Review NO; Basophils Absolute Auto 0 /uL (0-100); Eosinophils Absolute Auto 100 /uL (0-450); Eosinophils Percent Auto 3.2 % (2-4); Hematocrit 41.1 % (41-53); Hemoglobin 13.8 g/dL (13.5-17.5); Lymphocytes Absolute Auto 1000 /uL (1100-4500); Lymphocytes Percent Auto 24.6 % (25-40); Mean Corpuscular HGB Conc 33.7 % (30-36); Mean Corpuscular Hemoglobin 29.2 PG (26-34); Mean Corpuscular Volume 86.7 fL (80-100); Monocytes Absolute Auto 300 /uL (0-900); Monocytes Percent Auto 8.4 % (3-14); Neutrophils Absolute Auto 2500 /uL (1500-7000); Neutrophils Percent Auto 62.8 % (50-75); Platelet Count 203 X10^3/uL (150-400); Red Blood Cell Count 4.74 X10^6/uL (4.5-5.9); Red Cell Distribution Width 13.8 % (11.6-14.8)
[2020-02-01 09:02] LABS: BUN Creatinine Ratio 34.4 (6-22); Blood Urea Nitrogen 33 mg/dL (9-20); Calcium 9.1 mg/dL (8.4-10.2); Carbon Dioxide 24 mmol/L (22-32); Chloride 109 mmol/L (98-107); Cholesterol 115 mg/dL (140-199); Estimated Glomerular Filt Rate > 60.0 mL/min (>60); Glucose 102 mg/dL (80-110); HDL Cholesterol 45 mg/dL (40-60); HEMOLYSIS < 15 (0-50); LDL Cholesterol Calculated 53 mg/dL (<100); Potassium 4.3 mmol/L (3.4-5.1); Sodium 139 mmol/L (137-145); Triglycerides 86 mg/dL (35-150)
== END ==
PROVIDERS: Family Provider Internal Medicine; PCP Internal Medicine; Referring Provider Internal Medicine Cardiovascular Disease; Visit Provider Internal Medicine Cardiovascular Disease
DX: I10 Essential (primary) hypertension (principal); E78.5 Hyperlipidemia, unspecified
CPT/HCPCS: 36415; 80048; 80061; 85025

== ENCOUNTER → 2020-07-01 08:59 | Outpatient (CLI) | payer OTHER, SELFPAY ==
[2020-07-01 10:50] LABS: Prostate Specific Antigen 5.01 ng/mL (0.10-4.00)
== END ==
PROVIDERS: Family Provider Internal Medicine; PCP Internal Medicine; Referring Provider Specialist; Visit Provider Specialist
DX: R97.20 Elevated prostate specific antigen [PSA] (principal)
CPT/HCPCS: 36415; 84153

== ENCOUNTER → 2020-07-12 09:35 | Outpatient (CLI) | payer OTHER, SELFPAY | PROVIDERS: Family Provider Internal Medicine; PCP Internal Medicine; Visit Provider Specialist | DX: N39.0 Urinary tract infection, site not specified (principal); N31.2 Flaccid neuropathic bladder, not elsewhere classified; N40.1 Benign prostatic hyperplasia with lower urinary tract symptoms; N13.8 Other obstructive and reflux uropathy; R97.20 Elevated prostate specific antigen [PSA]; K40.90 Unilateral inguinal hernia, without obstruction or gangrene, not specified as recurrent; K42.9 Umbilical hernia without obstruction or gangrene; Z87.440 Personal history of urinary (tract) infections | CPT/HCPCS: 51798; 81002; 87077; 87086; 87186; 99213 ==

== ENCOUNTER → 2020-08-26 09:47 | Outpatient (CLI) | payer OTHER, SELFPAY ==
[2020-08-26 12:42] LABS: Bilirubin Urine UA NEGATIVE (NEGATIVE); Color Urine UA YELLOW; Glucose Urine UA NEGATIVE (Negative); Ketones Urine UA NEGATIVE (NEGATIVE); Leukocyte Esterase Urine UA 1+ (NEGATIVE); Nitrite Urine UA POSITIVE (Negative); Occult Blood Urine UA 3+ (Negative); Protein Urine UA 2+ (Negative); Urobilinogen Urine UA 0.2 E.U./dL (0.2)
[2020-08-26 12:47] LABS: Appearance Urine UA Slightly Cloudy
[2020-08-26 12:54] LABS: Bacteria Urine Many (>30); RBC Urine 1-5/HPF (0-5/HPF); WBC Urine 1-5/HPF (0-5/HPF)
[2020-08-26 12:55] LABS: Culture Indicated Urine Specimen Cultured
== END ==
PROVIDERS: Family Provider Internal Medicine; PCP Internal Medicine; Referring Provider Specialist; Visit Provider Specialist
DX: Z87.440 Personal history of urinary (tract) infections (principal)
CPT/HCPCS: 81001; 87077; 87086; 87186

== ENCOUNTER → 2020-12-13 13:59 | Outpatient (CLI) | payer OTHER, SELFPAY ==
[2020-12-13 14:43] LABS: Appearance Urine UA SL CLOUDY; Bilirubin Urine UA NEGATIVE (NEGATIVE); Color Urine UA YELLOW; Glucose Urine UA NEGATIVE (Negative); Ketones Urine UA NEGATIVE (NEGATIVE); Leukocyte Esterase Urine UA 1+ (NEGATIVE); Nitrite Urine UA NEGATIVE (Negative); Occult Blood Urine UA 3+ (Negative); Protein Urine UA 3+ (Negative); Urobilinogen Urine UA 0.2 E.U./dL (0.2)
[2020-12-13 15:14] LABS: RBC Urine 5-10/HPF (0-5/HPF)
[2020-12-13 15:15] LABS: Bacteria Urine Moderate (10-30); Culture Indicated Urine Specimen Cultured; WBC Urine 10-30/HPF (0-5/HPF)
== END ==
PROVIDERS: Family Provider Internal Medicine; PCP Internal Medicine; Referring Provider Specialist; Visit Provider Specialist
DX: N39.0 Urinary tract infection, site not specified (principal)
CPT/HCPCS: 81001; 87077; 87086; 87186

== ENCOUNTER → 2021-01-27 08:55 | Outpatient (CLI) | payer OTHER, SELFPAY ==
[2021-01-27 10:03] LABS: BUN Creatinine Ratio 31.5 (6-22); Blood Urea Nitrogen 28 mg/dL (9-20); Calcium 9.5 mg/dL (8.4-10.2); Carbon Dioxide 25 mmol/L (22-32); Chloride 104 mmol/L (98-107); Cholesterol 152 mg/dL (140-199); Estimated Glomerular Filt Rate > 60.0 mL/min (>60); Glucose 99 mg/dL (80-110); HDL Cholesterol 48 mg/dL (40-60); HEMOLYSIS 26 (0-50); LDL Cholesterol Calculated 78 mg/dL (<100); Potassium 4.7 mmol/L (3.4-5.1); Sodium 137 mmol/L (137-145); Triglycerides 131 mg/dL (35-150)
[2021-01-27 11:53] LABS: Add Manual Diff / Slide Review NO; Basophils Absolute Auto 100 /uL (0-100); Basophils Percent Auto 1.3 % (0-2); Eosinophils Absolute Auto 300 /uL (0-450); Eosinophils Percent Auto 7.5 % (2-4); Hematocrit 42.3 % (41-53); Hemoglobin 14.2 g/dL (13.5-17.5); Lymphocytes Absolute Auto 1200 /uL (1100-4500); Mean Corpuscular HGB Conc 33.6 % (30-36); Mean Corpuscular Hemoglobin 29.7 PG (26-34); Mean Corpuscular Volume 88.3 fL (80-100); Monocytes Absolute Auto 400 /uL (0-900); Monocytes Percent Auto 8.6 % (3-14); Neutrophils Absolute Auto 2500 /uL (1500-7000); Neutrophils Percent Auto 55.6 % (50-75); Platelet Count 246 X10^3/uL (150-400); Red Blood Cell Count 4.79 X10^6/uL (4.5-5.9); Red Cell Distribution Width 13.5 % (11.6-14.8); White Blood Cell Count 4.6 X10^3/uL (4.5-11.0)
== END ==
PROVIDERS: Family Provider Internal Medicine; PCP Internal Medicine; Referring Provider Internal Medicine Cardiovascular Disease; Visit Provider Internal Medicine Cardiovascular Disease
DX: E78.5 Hyperlipidemia, unspecified (principal); I10 Essential (primary) hypertension
CPT/HCPCS: 36415; 80048; 80061; 85025

== ENCOUNTER → 2021-06-30 09:04 | Outpatient (CLI) | payer OTHER, SELFPAY ==
[2021-06-30 10:16] LABS: Prostate Specific Antigen 5.38 ng/mL (0.10-4.00)
== END ==
PROVIDERS: Specialist; Family Provider Internal Medicine; PCP Internal Medicine; Referring Provider Internal Medicine; Visit Provider Internal Medicine
DX: R97.20 Elevated prostate specific antigen [PSA] (principal)
CPT/HCPCS: 36415; 84153

== ENCOUNTER → 2021-09-18 14:08 | Outpatient (CLI) | payer OTHER, SELFPAY ==
[2021-09-18 14:59] LABS: Appearance Urine UA CLEAR; Bilirubin Urine UA NEGATIVE (NEGATIVE); Color Urine UA YELLOW; Glucose Urine UA NEGATIVE (Negative); Ketones Urine UA NEGATIVE (NEGATIVE); Leukocyte Esterase Urine UA NEGATIVE (NEGATIVE); Nitrite Urine UA NEGATIVE (Negative); Occult Blood Urine UA 3+ (Negative); Protein Urine UA 2+ (Negative); Urobilinogen Urine UA 0.2 E.U./dL (0.2); pH Urine UA 5.5 (4.5-8.0)
[2021-09-18 15:22] LABS: Bacteria Urine Occasional (0-1); RBC Urine 5-10/HPF (0-5/HPF); Squamous Epithelial Cell Urine None Seen (0-5/HPF); WBC Urine 0-1/HPF (0-5/HPF)
[2021-09-18 15:23] LABS: Culture Indicated Urine Cult Not Indicated
== END ==
PROVIDERS: Family Provider Internal Medicine; PCP Internal Medicine; Referring Provider Specialist; Visit Provider Specialist
DX: R30.0 Dysuria (principal)
CPT/HCPCS: 81001

== ENCOUNTER → 2022-03-15 09:00 | Outpatient (CLI) | payer OTHER, SELFPAY ==
[2022-03-15 10:13] LABS: Add Manual Diff / Slide Review YES; Hematocrit 36.1 % (41-53); Hemoglobin 12.5 g/dL (13.5-17.5); Mean Corpuscular HGB Conc 34.7 % (30-36); Mean Corpuscular Hemoglobin 29.2 PG (26-34); Mean Corpuscular Volume 84.2 fL (80-100); Platelet Count 330 X10^3/uL (150-400); Red Blood Cell Count 4.28 X10^6/uL (4.5-5.9); Red Cell Distribution Width 12.7 % (11.6-14.8); White Blood Cell Count 26.8 X10^3/uL (4.5-11.0)
[2022-03-15 11:05] LABS: Neutrophils Absolute Manual 24120 /uL (3000-5900); RBC Morphology Normal Morphology; Total Cells Counted 100
[2022-03-15 11:26] LABS: BUN Creatinine Ratio 23.4 (6-22); Blood Urea Nitrogen 33 mg/dL (9-20); Calcium 7.9 mg/dL (8.4-10.2); Carbon Dioxide 22 mmol/L (22-32); Chloride 87 mmol/L (98-107); Cholesterol 88 mg/dL (140-199); Estimated Glomerular Filt Rate 52 mL/min (>60); Glucose 107 mg/dL (80-110); HDL Cholesterol 20 mg/dL (40-60); HEMOLYSIS < 15 (0-50); LDL Cholesterol Calculated 41 mg/dL (<100); Potassium 4.4 mmol/L (3.4-5.1); Sodium 122 mmol/L (137-145); Triglycerides 135 mg/dL (35-150)
[2022-03-15 11:38] LABS: TSH w/ Reflex to FT4 0.84 uIU/mL (0.47-4.68)
== END ==
PROVIDERS: Family Provider Internal Medicine; PCP Internal Medicine; Referring Provider Internal Medicine Cardiovascular Disease; Visit Provider Internal Medicine Cardiovascular Disease
DX: I10 Essential (primary) hypertension (principal); R53.83 Other fatigue; E78.5 Hyperlipidemia, unspecified
CPT/HCPCS: 36415; 80048; 80061; 84443; 85007; 85025

== ENCOUNTER 2022-03-19 09:45 | Inpatient (IN) | payer OTHER, SELFPAY ==
[2022-03-19] VITALS (11 sets, daily range): BP systolic 111–135; BP diastolic 61–75; PULSE 69–94; RESP 16–26; TEMP 36.3–37.2; O2SAT 95–100; BMI 22.8; BMI 21.3
--- NOTE | 2022-03-19 10:36 | DI.RAD.S_ITS ---
PROCEDURE: XR CHEST 1V INDICATIONS: suspected sepsis TECHNIQUE: One view of the chest was acquired. COMPARISON: None. FINDINGS: Surgical changes and devices: None. Lungs and pleura: Lungs are clear. No pleural effusions or pneumothorax. Mediastinum: Mediastinal contours appear normal. Cardiomegaly. Bones and chest wall: No suspicious bony lesions. Overlying soft tissues appear unremarkable. IMPRESSION: Cardiomegaly. No evidence acute pulmonary process. Dictated by: Wayne Zambrano M.D. on 03/19/2022 at 11:25 Approved by: Wayne Zambrano M.D. on 03/19/2022 at 11:26
--- NOTE | 2022-03-19 10:43 | PC.NURSE ---
pt states that he tried to talk to his urologist a few weeks ago about his urine being different. states it is very dark and smelly and has some mucous in it. states his urologist did not take a sample. this is concerning the patient. pt admits to falling in the last few weeks due to his legs giving out.
[2022-03-19 10:51] LABS: Add Manual Diff / Slide Review NO; Basophils Absolute Auto 100 /uL (0-100); Basophils Percent Auto 0.3 % (0-2); Eosinophils Absolute Auto 0 /uL (0-450); Hematocrit 35.1 % (41-53); Hemoglobin 11.8 g/dL (13.5-17.5); Lymphocytes Absolute Auto 200 /uL (1100-4500); Lymphocytes Percent Auto 1.1 % (25-40); Mean Corpuscular HGB Conc 33.6 % (30-36); Mean Corpuscular Hemoglobin 28.7 PG (26-34); Mean Corpuscular Volume 85.5 fL (80-100); Monocytes Absolute Auto 800 /uL (0-900); Monocytes Percent Auto 3.5 % (3-14); Neutrophils Absolute Auto 20800 /uL (1500-7000); Neutrophils Percent Auto 95.1 % (50-75); Platelet Count 310 X10^3/uL (150-400); Red Cell Distribution Width 13.3 % (11.6-14.8); White Blood Cell Count 21.8 X10^3/uL (4.5-11.0)
--- NOTE | 2022-03-19 10:54 | ED.WEAKNESS ---
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 He presents today with ongoing weakness. He says it is progressively getting worse over the last 1 month. He is not had fever or chills. Today his brother found him on the floor unknown how long he has been there for. He does not have home health care. He denies any chest pain or palpitations. He is difficulty ambulating and walking at baseline but is progressively getting worse Related Data Home Medications Medication Instructions Recorded Confirmed finasteride 5 mg tablet 5 mg PO DAILY 03/19/22 03/19/22 Previous Rx's Medication Instructions Recorded losartan 100 mg tablet 100 mg PO DAILY #90 tabs 01/26/20 minoxidil 10 mg tablet 10 mg PO QAM #90 tabs 01/26/20 amlodipine 10 mg tablet 10 mg PO DAILY #90 tabs 01/28/20 atorvastatin 10 mg tablet 10 mg PO BEDTIME #90 tabs 01/28/20 Allergies Allergy/AdvReac Type Severity Reaction Status Date / Time No Known Drug Allergies Allergy Verified 03/19/22 10:13 Review of Systems Review of Systems Narrative: GENERAL: See HPI HEENT: Denies throat pain RESPIRATORY: Denies dyspnea, cough, wheezing CARDIOVASCULAR: Denies chest pain, palpitations GASTROINTESTINAL: Denies nausea, vomiting : See HPI MUSCULOSKELETAL: Denies extremity pain, injury SKIN: No rash, no laceration, no pruritus NEUROLOGIC: See HPI 8 point review of systems is negative except for those stated above and HPI Patient History Medical History Atonic bladder (~08/2019) BPH w urinary obs/LUTS Elevated PSA Essential hypertension (01/11/15) FH: RANDI-BSO (total abdominal hysterectomy and bilateral salpingo-oophorectomy) Flaccid neurogenic bladder Gout History of UTI Mixed hyperlipidemia Right inguinal hernia Stenosis of cervical spine with myelopathy Surgical History Status post cervical arthrodesis (~08/2019) Social History household members: family Smoking Status: Former smoker alcohol intake: current Smoking Status: Former smoker Substance Use Type: does not use Exam Initial Vital Signs Initial Vital Signs: Vital Signs Temperature 98.9 F 03/19/22 10:14 Pulse Rate 94 H 03/19/22 10:14 Respiratory Rate 24 03/19/22 10:14 Blood Pressure 129/71 03/19/22 10:14 Pulse Oximetry 100 03/19/22 10:14 Oxygen Delivery Method 03/19/22 10:14 GENERAL: Alert generally weak 76-year-old HEENT: Head atraumatic,EOMI, pupils reactive, face symmetric, moist mucous membranes CARDIOVASCULAR: Regular rate and rhythm without murmurs, rubs or gallops. RESPIRATORY: Breath sounds equal bilaterally, no wheezes rales or rhonchi. ABDOMEN: Soft, nontender. Nondistended : No CVA tenderness, Bains catheter placed in ED EXTREMITIES: Normal range of motion, no clubbing or edema. Neurovascularly intact NEUROLOGICAL: Alert and oriented x4. Diffuse weakness some bilateral ataxia in both he [id number] some upper extremity weakness noted bilaterally as well no slurring of speech SKIN: Warm, dry, no laceration, no petechiae, no rashes or lesions. Course Orders Ordered: ED Orders 03/19/22 10:31 Complete Blood Count AUTO DIFF Stat Comprehensive Metabolic Panel Stat Lactate (Lactic Acid) Stat Lipase Stat Partial Thromboplastin Time Stat Procalcitonin Stat Prothrombin Time INR Stat 03/19/22 10:36 XR chest 1V Stat EKG-12 Lead Stat 03/19/22 11:01 CT head/brain wo con Stat 03/19/22 11:14 Urine Culture Stat Urine Microscopic Stat 03/19/22 11:32 ABG [Arterial Blood Gas] Stat 03/19/22 12:20 Covid-19 + FLU A/B + RSV - PCR Stat 03/19/22 12:45 Blood Culture Stat Acetaminophen (Acetaminophen 325 Mg Tablet) 650 mg PO Q6H CAMERON Last Admin: 03/19/22 15:24 Dose: 650 mg Documented By: TLS Amlodipine Besylate (Amlodipine 5 Mg Tablet) 10 mg PO DAILY CAMERON Atorvastatin Calcium (Atorvastatin 20 Mg Tablet) 10 mg PO BEDTIME CAMERON Sodium Chloride (Normal Saline 0.9%) 1,000 mls @ 100 mls/hr IV CONT CAMERON Last Admin: 03/19/22 17:33 Dose: 100 mls/hr Documented By: Infusion: 03/19/22 17:33 Dose: 100 mls/hr Documented By: Admin: 03/19/22 15:24 Dose: 100 mls/hr Documented By: TLS Ceftriaxone Sodium 2,000 mg/ (Sodium Chloride) 100 mls @ 200 mls/hr IV Q24H CAMERON Influenza Virus Vaccine (Influenza Hd Vaccine 0.7 Ml Syringe) 0.7 ml IM .ONCE ONE Stop: 03/21/22 09:01 Losartan Potassium (Losartan 50 Mg Tablet) 100 mg PO DAILY CAMERON Naloxone HCl (Naloxone 0.4 Mg/Ml Vial) 0.2 mg IV Q2MIN PRN PRN Reason: Opiate Reversal Minoxidil 10 Mg (Tablet) 10 mg PO DAILY CAMERON Ondansetron HCl (Ondansetron 4 Mg Odt) 4 mg PO Q8HR PRN PRN Reason: Nausea And Vomiting Discontinued Medications Enoxaparin Sodium (Enoxaparin 40 Mg/0.4 Ml Syringe) 40 mg SUBCUT DAILY CAMERON Sodium Chloride (Normal Saline 0.9%) 1,000 mls @ 1,000 mls/hr IV BOLUS ONE Stop: 03/19/22 11:35 Last Infusion: 03/19/22 13:17 Dose: 0 mls/hr Documented By: Admin: 03/19/22 12:18 Dose: 1,000 mls/hr Documented By: AMY Ceftriaxone Sodium 2,000 mg/ (Sodium Chloride) 100 mls @ 200 mls/hr IV NOW ONE Stop: 03/19/22 11:25 Last Infusion: 03/19/22 13:59 Dose: 0 mls/hr Documented By: Admin: 03/19/22 13:22 Dose: 200 mls/hr Documented By: NR Sodium Chloride (Normal Saline 0.9%) 1,000 mls @ 125 mls/hr IV CONT CAMERON Last Admin: 03/19/22 17:35 Dose: Not Given Documented By: BV Influenza Virus Vaccine (Influenza Hd Vaccine 0.7 Ml Syringe) 0.7 ml IM .ONCE ONE Stop: 03/19/22 15:16 Ondansetron HCl (Ondansetron 4 Mg/2 Ml Inj) 4 mg IV NOW PRN PRN Reason: Nausea And Vomiting Ondansetron HCl (Ondansetron 4 Mg Odt) 4 mg SL NOW PRN PRN Reason: Nausea And Vomiting Vital Signs Vital signs: Vital Signs - 8 hr 03/19/22 10:58 03/19/22 10:58 03/19/22 11:00 Pulse Rate 86 Respiratory Rate 26 H Blood Pressure 122/75 119/61 Pulse Oximetry 97 03/19/22 11:00 03/19/22 11:30 03/19/22 11:30 Pulse Rate 92 H 77 Respiratory Rate 26 H 19 Blood Pressure 111/65 Pulse Oximetry 97 96 03/19/22 11:52 03/19/22 11:52 03/19/22 12:00 Pulse Rate 74 Respiratory Rate 20 Blood Pressure 130/71 122/72 Pulse Oximetry 96 03/19/22 12:00 03/19/22 12:30 03/19/22 12:30 Pulse Rate 72 69 Respiratory Rate 25 H 23 Blood Pressure 128/69 Pulse Oximetry 96 97 03/19/22 13:00 03/19/22 13:00 03/19/22 13:30 Pulse Rate 70 Respiratory Rate 22 Blood Pressure 133/69 135/70 Pulse Oximetry 97 03/19/22 13:30 Pulse Rate 71 Respiratory Rate 25 H Blood Pressure Pulse Oximetry 98 MDM - Weakness Lab Data Result diagrams: 03/19/22 10:31 03/19/22 10:31 Labs: Lab Results 03/19/22 03/19/22 03/19/22 Range/Units 10:31 10:31 10:31 WBC 21.8 H (4.5-11.0) X10^3/uL RBC 4.10 L (4.5-5.9) X10^6/uL Hgb 11.8 L (13.5-17.5) g/dL Hct 35.1 L (41-53) % MCV 85.5 (80-100) fL MCH 28.7 (26-34) PG MCHC 33.6 (30-36) % RDW 13.3 (11.6-14.8) % Plt Count 310 (150-400) X10^3/uL Neut % (Auto) 95.1 H (50-75) % Lymph % (Auto) 1.1 L (25-40) % [place] % (Auto) 3.5 (3-14) % Eos % (Auto) 0.0 L (2-4) % Baso % (Auto) 0.3 (0-2) % Neut # (Auto) 42294 H (7710-8774) /uL Lymph # (Auto) 200 L (3502-9629) /uL [place] # (Auto) 800 (0-900) /uL Eos # (Auto) 0 (0-450) /uL Baso # (Auto) 100 (0-100) /uL PT 19.4 H (10.1-12.7) SECONDS INR 1.7 H (0.9-1.3) APTT 26 (26-36) SECONDS ABG pH (7.35-7.45) ABG pCO2 (35-45) mmHg ABG pO2 (80-100) mmHg ABG HCO3 (22-26) mmol/L ABG Total CO2 (21-31) mmol/L ABG O2 Saturation (95-100) % ABG Base Excess (-2-2) mmol/L FiO2 Sodium 120 L (137-145) mmol/L Potassium 3.8 (3.4-5.1) mmol/L Chloride 89 L (98-107) mmol/L Carbon Dioxide 16 L (22-32) mmol/L BUN 69 H (9-20) mg/dL Creatinine 2.08 H (0.66-1.25) mg/dL Estimated GFR 32 L (>60) mL/min BUN/Creatinine Ratio 33.2 H (6-22) Glucose 113 H (80-110) mg/dL Lactate (0.7-2.1) mmol/L Calcium 7.8 L (8.4-10.2) mg/dL Total Bilirubin 0.8 (0.2-1.3) mg/dL AST 37 (17-59) IU/L ALT 43 (<50) IU/L Alkaline Phosphatase 117 (38-126) U/L Total Creatine Kinase (55-170) U/L CK-MB (CK-2) (<2.37) ng/mL CK-MB (CK-2) Rel Index (1.5-5.0) % Total Protein 6.1 L (6.3-8.2) g/dL Albumin 2.9 L (3.5-5.0) g/dL Globulin 3.2 (1.7-4.1) g/dL Albumin/Globulin Ratio 0.9 L (1.0-2.8) Lipase 65 (23-300) U/L Procalcitonin 3.54 H (<0.5) ng/mL Urine RBC (0-5/HPF) Urine WBC (0-5/HPF) Ur Squamous Epith Cells (0-5/HPF) Amorphous Sediment Urine Bacteria (None) Ur Culture Indicated? SARS-CoV-2 (PCR) (Negative) Influenza A (RT-PCR) (NEGATIVE) Influenza B (RT-PCR) (NEGATIVE) RSV (PCR) (Negative) 03/19/22 03/19/22 03/19/22 Range/Units 10:31 10:31 11:14 WBC (4.5-11.0) X10^3/uL RBC (4.5-5.9) X10^6/uL Hgb (13.5-17.5) g/dL Hct (41-53) % MCV (80-100) fL MCH (26-34) PG MCHC (30-36) % RDW (11.6-14.8) % Plt Count (150-400) X10^3/uL Neut % (Auto) (50-75) % Lymph % (Auto) (25-40) % [place] % (Auto) (3-14) % Eos % (Auto) (2-4) % Baso % (Auto) (0-2) % Neut # (Auto) (6889-6421) /uL Lymph # (Auto) (0168-8662) /uL [place] # (Auto) (0-900) /uL Eos # (Auto) (0-450) /uL Baso # (Auto) (0-100) /uL PT (10.1-12.7) SECONDS INR (0.9-1.3) APTT (26-36) SECONDS ABG pH (7.35-7.45) ABG pCO2 (35-45) mmHg ABG pO2 (80-100) mmHg ABG HCO3 (22-26) mmol/L ABG Total CO2 (21-31) mmol/L ABG O2 Saturation (95-100) % ABG Base Excess (-2-2) mmol/L FiO2 Sodium (137-145) mmol/L Potassium (3.4-5.1) mmol/L Chloride (98-107) mmol/L Carbon Dioxide (22-32) mmol/L BUN (9-20) mg/dL Creatinine (0.66-1.25) mg/dL Estimated GFR (>60) mL/min BUN/Creatinine Ratio (6-22) Glucose (80-110) mg/dL Lactate 0.8 (0.7-2.1) mmol/L Calcium (8.4-10.2) mg/dL Total Bilirubin (0.2-1.3) mg/dL AST (17-59) IU/L ALT (<50) IU/L Alkaline Phosphatase (38-126) U/L Total Creatine Kinase 130 (55-170) U/L CK-MB (CK-2) 3.13 H (<2.37) ng/mL CK-MB (CK-2) Rel Index 2.4 (1.5-5.0) % Total Protein (6.3-8.2) g/dL Albumin (3.5-5.0) g/dL Globulin (1.7-4.1) g/dL Albumin/Globulin Ratio (1.0-2.8) Lipase (23-300) U/L Procalcitonin (<0.5) ng/mL Urine RBC 1-5/hpf (0-5/HPF) Urine WBC 5-10/hpf H (0-5/HPF) Ur Squamous Epith Cells 0-1 /hpf (0-5/HPF) Amorphous Sediment 2+ Urine Bacteria Many (>30) H (None) Ur Culture Indicated? Specimen cultured SARS-CoV-2 (PCR) (Negative) Influenza A (RT-PCR) (NEGATIVE) Influenza B (RT-PCR) (NEGATIVE) RSV (PCR) (Negative) 03/19/22 03/19/22 Range/Units 11:32 12:20 WBC (4.5-11.0) X10^3/uL RBC (4.5-5.9) X10^6/uL Hgb (13.5-17.5) g/dL Hct (41-53) % MCV (80-100) fL MCH (26-34) PG MCHC (30-36) % RDW (11.6-14.8) % Plt Count (150-400) X10^3/uL Neut % (Auto) (50-75) % Lymph % (Auto) (25-40) % [place] % (Auto) (3-14) % Eos % (Auto) (2-4) % Baso % (Auto) (0-2) % Neut # (Auto) (6230-9940) /uL Lymph # (Auto) (6668-9356) /uL [place] # (Auto) (0-900) /uL Eos # (Auto) (0-450) /uL Baso # (Auto) (0-100) /uL PT (10.1-12.7) SECONDS INR (0.9-1.3) APTT (26-36) SECONDS ABG pH 7.42 (7.35-7.45) ABG pCO2 26.9 L (35-45) mmHg ABG pO2 90 (80-100) mmHg ABG HCO3 17 L (22-26) mmol/L ABG Total CO2 18 L (21-31) mmol/L ABG O2 Saturation 97 (95-100) % ABG Base Excess -7.0 L (-2-2) mmol/L FiO2 21 Sodium (137-145) mmol/L Potassium (3.4-5.1) mmol/L Chloride (98-107) mmol/L Carbon Dioxide (22-32) mmol/L BUN (9-20) mg/dL Creatinine (0.66-1.25) mg/dL Estimated GFR (>60) mL/min BUN/Creatinine Ratio (6-22) Glucose (80-110) mg/dL Lactate (0.7-2.1) mmol/L Calcium (8.4-10.2) mg/dL Total Bilirubin (0.2-1.3) mg/dL AST (17-59) IU/L ALT (<50) IU/L Alkaline Phosphatase (38-126) U/L Total Creatine Kinase (55-170) U/L CK-MB (CK-2) (<2.37) ng/mL CK-MB (CK-2) Rel Index (1.5-5.0) % Total Protein (6.3-8.2) g/dL Albumin (3.5-5.0) g/dL Globulin (1.7-4.1) g/dL Albumin/Globulin Ratio (1.0-2.8) Lipase (23-300) U/L Procalcitonin (<0.5) ng/mL Urine RBC (0-5/HPF) Urine WBC (0-5/HPF) Ur Squamous Epith Cells (0-5/HPF) Amorphous Sediment Urine Bacteria (None) Ur Culture Indicated? SARS-CoV-2 (PCR) Negative (Negative) Influenza A (RT-PCR) Flu a negative (NEGATIVE) Influenza B (RT-PCR) Flu b negative (NEGATIVE) RSV (PCR) Negative (Negative) Imaging Data CT scan - head: Radiologist Impression: [place] [id number] CT Scan Report Signed Patient: Thanh Cowan MR#: [id number] : 1945 Acct:[id number] Age/Sex: 76 / M Date of Service: 03/19/22 Loc: ED Accession Number: [id number] ?? Procedure: CT head/brain wo con Ordering Provider: Hazel Anderson D.O. PROCEDURE:? CT HEAD/BRAIN WO CON ? INDICATIONS:? weakness falling ? TECHNIQUE:? Noncontrast 4.5 mm thick angled axial sections acquired from the foramen magnum to the vertex, with coronal and sagittal reformats.? For radiation dose reduction, the following was used:? automated exposure control, adjustment of mA and/or kV according to patient size.? ? COMPARISON:? [facility], CT, CT HEAD/BRAIN WO CON, 08/31/2019, 10:04. ? FINDINGS:? Image quality:? Excellent.? ? CSF spaces:? Basal cisterns are patent.? No extra-axial fluid collections.? The ventricles are symmetric in size and shape.? ? Brain:? No intracranial bleeds or masses.? There is cerebral volume loss for age, with resultant ventricular and sulcal prominence.? There are periventricular and deep white matter chronic small vessel ischemic changes.? There is intracranial internal carotid artery atherosclerosis.? ? Skull and face:? Calvarium and visualized facial bones appear intact, without suspicious lesions.? ? Sinuses:? Visualized sinuses and mastoids are clear.? ? IMPRESSION:? 1. CT head without acute intracranial abnormalities or acute calvarial fractures. ? 2. Age-related senescent changes and sequela of chronic small vessel ischemic disease. ? Dictated by: Zhou Dunbar M.D. on 03/19/2022 at 11:53 ? ? Chest x-ray: Radiologist Impression: [id number] [id number] XRay Report Signed Patient: Thanh Cowan MR#: [id number] : 1945 Acct:[id number] Age/Sex: 76 / M Date of Service: 03/19/22 Loc: ED Accession Number: [id number] ?? Procedure: XR chest 1V Ordering Provider: Hazel Anderson D.O. PROCEDURE:? XR CHEST 1V ? INDICATIONS:? suspected sepsis ? TECHNIQUE:? One view of the chest was acquired.? ? COMPARISON:? None. ? FINDINGS:? ? Surgical changes and devices:? None.? ? Lungs and pleura:? Lungs are clear.? No pleural effusions or pneumothorax.? ? Mediastinum:? Mediastinal contours appear normal.? Cardiomegaly. ? Bones and chest wall:? No suspicious bony lesions.? Overlying soft tissues appear unremarkable.? ? IMPRESSION:? Cardiomegaly.? No evidence acute pulmonary process. ? ? Dictated by: Wayne Zambrano M.D. on 03/19/2022 at 11:25 ? ? ECG Data Interpretation: Normal sinus rhythm rate 78 ME interval 168 QRS 148 QTC 485 right bundle-branch block noted similar to previous EKG no ST changes similar to previous EKG MDM Narrative Medical decision making narrative: Patient has progressive ongoing weakness getting worse. No specific localization. He previously had a severe spinal stenosis which was resolved with surgery 2 years ago. He does self-catheterizations suspected infection. He is not septic he is not febrile tachycardic or hypotensive. However his procalcitonin is quite elevated at 3.5. Urine has many bacteria specimen is cultured and is quite cloudy in the Bains catheter. Bicarb is noted to be 16 with a normal lactate ABG confirms that bicarb is 17 but he is not acidotic. Previously had a normal bicarb on March 15. He is also noted to have acute kidney injury with a increased creatinine of 2.0 previously was 1.41. Possible dehydration. Patient has been extremely weak over the past few days and month. He is given IV fluids and antibiotics cefepime based on previous cultures. He is diffusely weak in all extremities. He previously had severe spinal cord stenosis causing the weakness. I do not suspect that at this time. It seems to be more infection related. I do not see need for imaging of spine. However if symptoms do not improve with antibiotics I would consider. Dr. Miles Updated on patient's symptoms test results and kindly accepts patient Differential includes sepsis, neurologic disorder, intracranial head bleed, stroke Discharge Plan Departure Patient Disposition: Admitted As Inpatient Clinical Impression: Acute UTI, YELITZA (acute kidney injury) Admit Date/Time: 03/19/22 13:47 Admit Provider: Kiera Miles
[2022-03-19 10:55] LABS: INR 1.7 (0.9-1.3); Prothrombin Time 19.4 SECONDS (10.1-12.7)
[2022-03-19 10:58] LABS: PTT Partial Thromboplastin Tim 26 SECONDS (26-36)
[2022-03-19 11:01] LABS: Lactate (Lactic Acid) 0.8 mmol/L (0.7-2.1)
--- NOTE | 2022-03-19 11:01 | DI.CT.S_ITS ---
PROCEDURE: CT HEAD/BRAIN WO CON INDICATIONS: weakness falling TECHNIQUE: Noncontrast 4.5 mm thick angled axial sections acquired from the foramen magnum to the vertex, with coronal and sagittal reformats. For radiation dose reduction, the following was used: automated exposure control, adjustment of mA and/or kV according to patient size. COMPARISON: [facility], CT, CT HEAD/BRAIN WO CON, 08/31/2019, 10:04. FINDINGS: Image quality: Excellent. CSF spaces: Basal cisterns are patent. No extra-axial fluid collections. The ventricles are symmetric in size and shape. Brain: No intracranial bleeds or masses. There is cerebral volume loss for age, with resultant ventricular and sulcal prominence. There are periventricular and deep white matter chronic small vessel ischemic changes. There is intracranial internal carotid artery atherosclerosis. Skull and face: Calvarium and visualized facial bones appear intact, without suspicious lesions. Sinuses: Visualized sinuses and mastoids are clear. IMPRESSION: 1. CT head without acute intracranial abnormalities or acute calvarial fractures. 2. Age-related senescent changes and sequela of chronic small vessel ischemic disease. Dictated by: Zhou Dunbar M.D. on 03/19/2022 at 11:53 Approved by: Zhou Dunbar M.D. on 03/19/2022 at 11:54
[2022-03-19 11:02] LABS: Alanine Aminotransferase 43 IU/L (<50); Albumin 2.9 g/dL (3.5-5.0); Albumin Globulin Ratio 0.9 (1.0-2.8); Alkaline Phosphatase 117 U/L (38-126); Aspartate Aminotransferase 37 IU/L (17-59); BUN Creatinine Ratio 33.2 (6-22); Bilirubin Total 0.8 mg/dL (0.2-1.3); Blood Urea Nitrogen 69 mg/dL (9-20); Calcium 7.8 mg/dL (8.4-10.2); Carbon Dioxide 16 mmol/L (22-32); Chloride 89 mmol/L (98-107); Estimated Glomerular Filt Rate 32 mL/min (>60); Globulin 3.2 g/dL (1.7-4.1); Glucose 113 mg/dL (80-110); HEMOLYSIS < 15 (0-50); Lipase 65 U/L (23-300); Potassium 3.8 mmol/L (3.4-5.1); Sodium 120 mmol/L (137-145); Total Protein 6.1 g/dL (6.3-8.2)
[2022-03-19 11:19] LABS: Procalcitonin 3.54 ng/mL (<0.5)
[2022-03-19 11:42] LABS: Fractionated Inspired Oxygen 21; HCO3 ABG 17 mmol/L (22-26); Oxygen Saturation ABG 97 % (95-100); PCO2 ABG 26.9 mmHg (35-45); PO2 ABG 90 mmHg (80-100); TCO2 ABG 18 mmol/L (21-31); pH ABG 7.42 (7.35-7.45)
[2022-03-19 12:06] LABS: RBC Urine 1-5/HPF (0-5/HPF)
[2022-03-19 12:07] LABS: Amorphous Sediment Urine 2+; Bacteria Urine Many (>30); Culture Indicated Urine Specimen Cultured; Squamous Epithelial Cell Urine 0-1 /HPF (0-5/HPF); WBC Urine 5-10/HPF (0-5/HPF)
[2022-03-19] MEDS: SODIUM CHLORIDE 0.9% 1,000 ML 1000 ML IV (12:18)
[2022-03-19] MEDS: cefTRIAXone 2,000 MG in SODIUM CHLORIDE 0.9% 100 ML 200 MG IV (13:22)
[2022-03-19 13:54] LABS: Influenza A - CEPHEID Flu A NEGATIVE (NEGATIVE); Influenza B - CEPHEID Flu B NEGATIVE (NEGATIVE); Respiratory Syncytial Virus Negative (Negative)
[2022-03-19 13:56] LABS: COVID-19 CEPHEID 4-PLEX PCR Negative (Negative)
--- NOTE | 2022-03-19 13:56 | PM.HP.1 ---
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 The pt reports feeling increasingly weak for the past month. His appetite has been decreased since Thanksgi, when he had a single episode of emesis, as well. He has continued to eat, but just must smaller portions than usual. He has had two falls in the past month. He reports that his last fall was a couple days ago, however in the ED it was reported the pt was found down today by his brother who was visiting. It was unclear how long he had been down for. The pt reports he has been staying hydrated. He denies any chest pain, SOB, fevers, chills, abdominal pain, or diarrhea. He states he has been feeling well other than the weakness and decreased appetite. In the ED, the pt Patient History Medical History Atonic bladder (~08/2019) BPH w urinary obs/LUTS Elevated PSA Essential hypertension (01/11/15) FH: RANDI-BSO (total abdominal hysterectomy and bilateral salpingo-oophorectomy) Flaccid neurogenic bladder Gout History of UTI Mixed hyperlipidemia Right inguinal hernia Stenosis of cervical spine with myelopathy Surgical History Status post cervical arthrodesis (~08/2019) Family & Social History Safety & Behavioral: Feels Safe in Current Yes Environment Been Physically Hurt or No Threatened By a Person Tobacco & Substance use: Smoking Status Former smoker Substance Use Type does not use Meds Home Medications and Allergies Home Medications Medication Instructions Recorded Confirmed Type losartan 100 mg tablet 100 mg PO DAILY #90 tabs 01/26/20 03/19/22 Rx minoxidil 10 mg tablet 10 mg PO QAM #90 tabs 01/26/20 03/19/22 Rx amlodipine 10 mg tablet 10 mg PO DAILY #90 tabs 01/28/20 03/19/22 Rx atorvastatin 10 mg tablet 10 mg PO BEDTIME #90 tabs 01/28/20 03/19/22 Rx finasteride 5 mg tablet 5 mg PO DAILY 03/19/22 03/19/22 History Allergies Allergy/AdvReac Type Severity Reaction Status Date / Time No Known Drug Allergies Allergy Verified 03/19/22 10:13 Exam Vital Signs (past 8 hours): - 03/19/22 10:14 03/19/22 10:58 03/19/22 10:58 Temperature 98.9 F Pulse Rate 94 H 86 Respiratory Rate 24 26 H Blood Pressure 129/71 122/75 Pulse Oximetry 100 97 Oxygen Delivery Method Room Air 03/19/22 11:00 03/19/22 11:00 03/19/22 11:30 Temperature Pulse Rate 92 H Respiratory Rate 26 H Blood Pressure 119/61 111/65 Pulse Oximetry 97 Oxygen Delivery Method 03/19/22 11:30 03/19/22 11:52 03/19/22 11:52 Temperature Pulse Rate 77 74 Respiratory Rate 19 20 Blood Pressure 130/71 Pulse Oximetry 96 96 Oxygen Delivery Method 03/19/22 12:00 03/19/22 12:00 03/19/22 12:30 Temperature Pulse Rate 72 Respiratory Rate 25 H Blood Pressure 122/72 128/69 Pulse Oximetry 96 Oxygen Delivery Method 03/19/22 12:30 03/19/22 13:00 03/19/22 13:00 Temperature Pulse Rate 69 70 Respiratory Rate 23 22 Blood Pressure 133/69 Pulse Oximetry 97 97 Oxygen Delivery Method 03/19/22 13:30 03/19/22 13:30 Temperature Pulse Rate 71 Respiratory Rate 25 H Blood Pressure 135/70 Pulse Oximetry 98 Oxygen Delivery Method Oxygen Delivery Method Room Air Narrative Exam Narrative: Gen: NAD, sitting comfortably in bed, appears well, pleasantly conversant Neck: no JVD CV: RRR, grade 3/6 systolic murmur Resp: clear to auscultation bilaterally, no wheezes or crackles Abd: soft, nontender, nondistended, normoactive bowel sounds Ext: no edema Objective Labs Result Diagrams: 03/19/22 10:31 03/19/22 10:31 Labs: Laboratory Results - last 24 hr 03/19/22 03/19/22 03/19/22 10:31 10:31 10:31 WBC 21.8 H RBC 4.10 L Hgb 11.8 L Hct 35.1 L MCV 85.5 MCH 28.7 MCHC 33.6 RDW 13.3 Plt Count 310 Neut % (Auto) 95.1 H Lymph % (Auto) 1.1 L [place] % (Auto) 3.5 Eos % (Auto) 0.0 L Baso % (Auto) 0.3 Neut # (Auto) 74779 H Lymph # (Auto) 200 L [place] # (Auto) 800 Eos # (Auto) 0 Baso # (Auto) 100 PT 19.4 H INR 1.7 H APTT 26 ABG pH ABG pCO2 ABG pO2 ABG HCO3 ABG Total CO2 ABG O2 Saturation ABG Base Excess FiO2 Sodium 120 L Potassium 3.8 Chloride 89 L Carbon Dioxide 16 L BUN 69 H Creatinine 2.08 H Estimated GFR 32 L BUN/Creatinine Ratio 33.2 H Glucose 113 H Lactate Calcium 7.8 L Total Bilirubin 0.8 AST 37 ALT 43 Alkaline Phosphatase 117 Total Protein 6.1 L Albumin 2.9 L Globulin 3.2 Albumin/Globulin Ratio 0.9 L Lipase 65 Procalcitonin 3.54 H Urine RBC Urine WBC Ur Squamous Epith Cells Amorphous Sediment Urine Bacteria Ur Culture Indicated? SARS-CoV-2 (PCR) Influenza A (RT-PCR) Influenza B (RT-PCR) RSV (PCR) 03/19/22 03/19/22 03/19/22 10:31 11:14 11:32 WBC RBC Hgb Hct MCV MCH MCHC RDW Plt Count Neut % (Auto) Lymph % (Auto) [place] % (Auto) Eos % (Auto) Baso % (Auto) Neut # (Auto) Lymph # (Auto) [place] # (Auto) Eos # (Auto) Baso # (Auto) PT INR APTT ABG pH 7.42 ABG pCO2 26.9 L ABG pO2 90 ABG HCO3 17 L ABG Total CO2 18 L ABG O2 Saturation 97 ABG Base Excess -7.0 L FiO2 21 Sodium Potassium Chloride Carbon Dioxide BUN Creatinine Estimated GFR BUN/Creatinine Ratio Glucose Lactate 0.8 Calcium Total Bilirubin AST ALT Alkaline Phosphatase Total Protein Albumin Globulin Albumin/Globulin Ratio Lipase Procalcitonin Urine RBC 1-5/hpf Urine WBC 5-10/hpf H Ur Squamous Epith Cells 0-1 /hpf Amorphous Sediment 2+ Urine Bacteria Many (>30) H Ur Culture Indicated? Specimen cultured SARS-CoV-2 (PCR) Influenza A (RT-PCR) Influenza B (RT-PCR) RSV (PCR) 03/19/22 12:20 WBC RBC Hgb Hct MCV MCH MCHC RDW Plt Count Neut % (Auto) Lymph % (Auto) [place] % (Auto) Eos % (Auto) Baso % (Auto) Neut # (Auto) Lymph # (Auto) [place] # (Auto) Eos # (Auto) Baso # (Auto) PT INR APTT ABG pH ABG pCO2 ABG pO2 ABG HCO3 ABG Total CO2 ABG O2 Saturation ABG Base Excess FiO2 Sodium Potassium Chloride Carbon Dioxide BUN Creatinine Estimated GFR BUN/Creatinine Ratio Glucose Lactate Calcium Total Bilirubin AST ALT Alkaline Phosphatase Total Protein Albumin Globulin Albumin/Globulin Ratio Lipase Procalcitonin Urine RBC Urine WBC Ur Squamous Epith Cells Amorphous Sediment Urine Bacteria Ur Culture Indicated? 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 1) UTI: U/A with many bacteria, procalcitonin elevated, and WBC count 21.8 with left shift. Pt does self catheterize at home due to neuropathic bladder. - Continue Ceftriaxone initiated in the ED - F/u urine cultures - mIVF overnight 2) Weakness: Most likely due to UTI in setting of gradual chronic decline. Head CT negative in the ED. - PT/OT consulted - Hopefull will improve as UTI treated as well 3) YELITZA: Cr elevated to 2.08 with normal baseline. Received IVF bolus in the ED. Uncertain how long pt was down for, possible rhabdo contributing. - mIVF overnight - CK ordered - Continue to trend 4) Mild anemia: Unclear etiology. - Continue to trend - Iron studies in the morning 5) HTN: BP stable - Continue home medications FEN: Cardiac diet Code: Full DVT ppx: Lovenox Dispo: Pending urine cultures, improvement in weakness. Anticipate 2 midnights. Pt desires d/c home, but is willing to consider rehab if necessary. Time Spent With Patient Critical Care time: I spent a total of [] minutes of critical care time on this patient's care today; this time is exclusive of procedural time.
--- NOTE | 2022-03-19 13:56 | PC.NURSE ---
changed patient brief, patient has beginings of pressure ulcer on cocyx/sacral region. skin barrier cream applied.
[2022-03-19] MEDS: ACETAMINOPHEN 325 MG TABLET 650 MG PO ×2 (15:24→21:05)
[2022-03-19] MEDS: SODIUM CHLORIDE 0.9% 1,000 ML 100 ML IV ×2 (15:24→17:33)
[2022-03-19 17:50] LABS: Creatine Kinase 130 U/L (55-170)
[2022-03-19 18:05] LABS: CKMB % Relative Index 2.4 % (1.5-5.0); Creatine Kinase MB 3.13 ng/mL (<2.37)
[2022-03-19] MEDS: ATORVASTATIN 20 MG TABLET 10 MG PO (21:06)
[2022-03-20] MEDS: ACETAMINOPHEN 325 MG TABLET 650 MG PO ×3 (01:52→21:03)
[2022-03-20] MEDS: SODIUM CHLORIDE 0.9% 1,000 ML 100 ML IV ×2 (01:53→12:00)
[2022-03-20 04:45] VITALS: BP 119/62; PULSE 67; RESP 20; TEMP 36.6; O2SAT 94
[2022-03-20 06:02] LABS: Add Manual Diff / Slide Review NO; Basophils Absolute Auto 0 /uL (0-100); Basophils Percent Auto 0.1 % (0-2); Eosinophils Absolute Auto 0 /uL (0-450); Eosinophils Percent Auto 0.1 % (2-4); Hematocrit 32.3 % (41-53); Lymphocytes Absolute Auto 400 /uL (1100-4500); Lymphocytes Percent Auto 2.8 % (25-40); Mean Corpuscular HGB Conc 34.1 % (30-36); Mean Corpuscular Volume 84.9 fL (80-100); Monocytes Absolute Auto 600 /uL (0-900); Monocytes Percent Auto 4.3 % (3-14); Neutrophils Absolute Auto 12800 /uL (1500-7000); Neutrophils Percent Auto 92.7 % (50-75); Platelet Count 267 X10^3/uL (150-400); Red Cell Distribution Width 13.5 % (11.6-14.8); White Blood Cell Count 13.8 X10^3/uL (4.5-11.0)
[2022-03-20 06:24] LABS: Blood Urea Nitrogen 64 mg/dL (9-20); Calcium 7.2 mg/dL (8.4-10.2); Carbon Dioxide 17 mmol/L (22-32); Chloride 98 mmol/L (98-107); Estimated Glomerular Filt Rate 43 mL/min (>60); Glucose 125 mg/dL (80-110); HEMOLYSIS < 15 (0-50); Iron 28 ug/dL (49-181); Potassium 3.7 mmol/L (3.4-5.1); Sodium 125 mmol/L (137-145)
[2022-03-20 06:35] LABS: Percent Iron Saturation 24 % (20-50); Total Iron Binding Capacity 119 ug/dL (261-462)
[2022-03-20 06:36] LABS: Transferrin < 80 mg/dL (206-381)
[2022-03-20 07:47] LABS: Ferritin 1290 ng/mL (18-464)
[2022-03-20 08:31] VITALS: BP 119/62
[2022-03-20] MEDS: LOSARTAN 50 MG TABLET 100 MG PO (08:31)
[2022-03-20] MEDS: AMLODIPINE 5 MG TABLET 10 MG PO (08:31)
--- NOTE | 2022-03-20 09:32 | PM.PN.1 ---
Subjective Subjective Date Patient Seen: 03/20/22 Interval history: The pt has no specific concerns this morning. He has not yet been out of bed to test his strength. He slept well last night. He denies any recent chest pain, SOB, LE edema. He is overall feeling well. Exam Vital Signs (past 8 hours): - 03/20/22 04:45 03/20/22 08:31 Temperature 97.9 F Pulse Rate 67 Respiratory Rate 20 Blood Pressure 119/62 119/62 Pulse Oximetry 94 Oxygen Flow Rate 0 Oxygen Delivery Method Room Air Oxygen Flow Rate 0 Narrative Exam Narrative: Gen: NAD, sitting comfortably in bed, appears well CV: RRR, grade 4/6 systolic murmur Resp: clear to auscultation bilaterally Abd: soft, nontender, nondistended, normoactive bowel sounds Ext: no edema Objective Labs Result Diagrams: 03/20/22 05:17 03/20/22 05:17 Labs: Laboratory Results - last 24 hr 03/19/22 03/19/22 03/19/22 10:31 10:31 10:31 WBC 21.8 H RBC 4.10 L Hgb 11.8 L Hct 35.1 L MCV 85.5 MCH 28.7 MCHC 33.6 RDW 13.3 Plt Count 310 Neut % (Auto) 95.1 H Lymph % (Auto) 1.1 L [place] % (Auto) 3.5 Eos % (Auto) 0.0 L Baso % (Auto) 0.3 Neut # (Auto) 15094 H Lymph # (Auto) 200 L [place] # (Auto) 800 Eos # (Auto) 0 Baso # (Auto) 100 PT 19.4 H INR 1.7 H APTT 26 ABG pH ABG pCO2 ABG pO2 ABG HCO3 ABG Total CO2 ABG O2 Saturation ABG Base Excess FiO2 Sodium 120 L Potassium 3.8 Chloride 89 L Carbon Dioxide 16 L BUN 69 H Creatinine 2.08 H Estimated GFR 32 L BUN/Creatinine Ratio 33.2 H Glucose 113 H Lactate Calcium 7.8 L Iron TIBC % Saturation Transferrin Ferritin Total Bilirubin 0.8 AST 37 ALT 43 Alkaline Phosphatase 117 Total Creatine Kinase CK-MB (CK-2) CK-MB (CK-2) Rel Index Total Protein 6.1 L Albumin 2.9 L Globulin 3.2 Albumin/Globulin Ratio 0.9 L Lipase 65 Procalcitonin 3.54 H Urine RBC Urine WBC Ur Squamous Epith Cells Amorphous Sediment Urine Bacteria Ur Culture Indicated? SARS-CoV-2 (PCR) Influenza A (RT-PCR) Influenza B (RT-PCR) RSV (PCR) 03/19/22 03/19/22 03/19/22 10:31 10:31 11:14 WBC RBC Hgb Hct MCV MCH MCHC RDW Plt Count Neut % (Auto) Lymph % (Auto) [place] % (Auto) Eos % (Auto) Baso % (Auto) Neut # (Auto) Lymph # (Auto) [place] # (Auto) Eos # (Auto) Baso # (Auto) PT INR APTT ABG pH ABG pCO2 ABG pO2 ABG HCO3 ABG Total CO2 ABG O2 Saturation ABG Base Excess FiO2 Sodium Potassium Chloride Carbon Dioxide BUN Creatinine Estimated GFR BUN/Creatinine Ratio Glucose Lactate 0.8 Calcium Iron TIBC % Saturation Transferrin Ferritin Total Bilirubin AST ALT Alkaline Phosphatase Total Creatine Kinase 130 CK-MB (CK-2) 3.13 H CK-MB (CK-2) Rel Index 2.4 Total Protein Albumin Globulin Albumin/Globulin Ratio Lipase Procalcitonin Urine RBC 1-5/hpf Urine WBC 5-10/hpf H Ur Squamous Epith Cells 0-1 /hpf Amorphous Sediment 2+ Urine Bacteria Many (>30) H Ur Culture Indicated? Specimen cultured SARS-CoV-2 (PCR) Influenza A (RT-PCR) Influenza B (RT-PCR) RSV (PCR) 03/19/22 03/19/22 03/20/22 11:32 12:20 05:17 WBC 13.8 H RBC 3.80 L Hgb 11.0 L Hct 32.3 L MCV 84.9 MCH 29.0 MCHC 34.1 RDW 13.5 Plt Count 267 Neut % (Auto) 92.7 H Lymph % (Auto) 2.8 L [place] % (Auto) 4.3 Eos % (Auto) 0.1 L Baso % (Auto) 0.1 Neut # (Auto) 68290 H Lymph # (Auto) 400 L [place] # (Auto) 600 Eos # (Auto) 0 Baso # (Auto) 0 PT INR APTT ABG pH 7.42 ABG pCO2 26.9 L ABG pO2 90 ABG HCO3 17 L ABG Total CO2 18 L ABG O2 Saturation 97 ABG Base Excess -7.0 L FiO2 21 Sodium Potassium Chloride Carbon Dioxide BUN Creatinine Estimated GFR BUN/Creatinine Ratio Glucose Lactate Calcium Iron TIBC % Saturation Transferrin Ferritin Total Bilirubin AST ALT Alkaline Phosphatase Total Creatine Kinase CK-MB (CK-2) CK-MB (CK-2) Rel Index Total Protein Albumin Globulin Albumin/Globulin Ratio Lipase Procalcitonin Urine RBC Urine WBC Ur Squamous Epith Cells Amorphous Sediment Urine Bacteria Ur Culture Indicated? SARS-CoV-2 (PCR) Negative Influenza A (RT-PCR) Flu a negative Influenza B (RT-PCR) Flu b negative RSV (PCR) Negative 03/20/22 03/20/22 03/20/22 05:17 05:17 05:17 WBC RBC Hgb Hct MCV MCH MCHC RDW Plt Count Neut % (Auto) Lymph % (Auto) [place] % (Auto) Eos % (Auto) Baso % (Auto) Neut # (Auto) Lymph # (Auto) [place] # (Auto) Eos # (Auto) Baso # (Auto) PT INR APTT ABG pH ABG pCO2 ABG pO2 ABG HCO3 ABG Total CO2 ABG O2 Saturation ABG Base Excess FiO2 Sodium 125 L Potassium 3.7 Chloride 98 Carbon Dioxide 17 L BUN 64 H Creatinine 1.64 H Estimated GFR 43 L BUN/Creatinine Ratio 39.0 H Glucose 125 H Lactate Calcium 7.2 L Iron 28 L TIBC 119 L % Saturation 24 Transferrin < 80 L Ferritin 1290 H Total Bilirubin AST ALT Alkaline Phosphatase Total Creatine Kinase CK-MB (CK-2) CK-MB (CK-2) Rel Index Total Protein Albumin Globulin Albumin/Globulin Ratio Lipase Procalcitonin Urine RBC Urine WBC Ur Squamous Epith Cells Amorphous Sediment Urine Bacteria Ur Culture Indicated? 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 Elevated PSA Essential hypertension (01/11/15) FH: RANDI-BSO (total abdominal hysterectomy and bilateral salpingo-oophorectomy) Flaccid neurogenic bladder Gout History of UTI Mixed hyperlipidemia Right inguinal hernia Stenosis of cervical spine with myelopathy Surgical History Status post cervical arthrodesis (~08/2019) Social History household members: family Smoking Status: Former smoker alcohol intake: current Assessment & Plan Assessment & Plan narrative: Pt is a 76yo man with HTN, 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 1)? UTI:? Pt does self catheterize at home due to neuropathic bladder. WBC count improving. Urine culture growing gram negative bacilli. - Continue Ceftriaxone initiated in the ED - F/u urine cultures - continue mIVF 2)? Weakness:? Most likely due to UTI in setting of gradual chronic decline.? Head CT negative in the ED. - PT/OT consulted - Hopefull will improve as UTI treated as well 3)? YELITZA:? Cr elevated to 2.08 with normal baseline at admission. Now improving. - continue mIVF - Continue to trend 4)? Mild iron deficiency anemia: Pt denies any melena recently. Not an acute issue, but may need to be addressed as an outpatient. - Continue to trend - Start daily iron supplement 5)? HTN:? BP stable - Continue home medications FEN:? Cardiac diet Code:? Full DVT ppx:? Lovenox Dispo:? Pending urine cultures, improvement in weakness.? Pt desires d/c home, but is willing to consider rehab if necessary. Time Spent With Patient Critical Care time: I spent a total of [] minutes of critical care time on this patient's care today; this time is exclusive of procedural time. Quality VTE Deep Vein Thrombosis/Pulmonary Embolism Present on Admission: No
--- NOTE | 2022-03-20 10:50 | PT.IIE ---
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 Elevated PSA Essential hypertension (01/11/15) FH: RANDI-BSO (total abdominal hysterectomy and bilateral salpingo-oophorectomy) Flaccid neurogenic bladder Gout History of UTI Mixed hyperlipidemia Right inguinal hernia Stenosis of cervical spine with myelopathy Physical Therapy Inpatient Evaluation/Re-Eval M1 PT/OT-IP Prior Functional Status Start: 03/20/22 12:52 Freq: NEEDED Status: Active Protocol: Document 03/20/22 10:50 AB (Rec: 03/20/22 13:02 AB [email or web address]) Medical Review Prior Functional Status Medical History Reviewed Yes Communication able to answer questions but needs time to respond Mobility and Gait pt stated that he is modified independent with all mobilities at home; uses a 4WW on and off and occasionally ambulates without AD but furniture cruises Activities of Daily Living and IADL's per OT notes: Pt states prior completely independent with all ADl and IADL needs. Pt states his brother assists him but at this time unable to identify what help he needs. Social History Household Members none Living Arrangements House Number of Floors (Floors) Two Floors Number of Stairs To Enter/Railing? pt lives on the main level of the house has a ramp to enter the house Home Environment Standard Height Toilet,Tub/ Shower,Ramp Home Equipment Four Wheel Walker,Hand Held Shower,Grab Bars In Shower Additional Social History Comment pt stated that his brother who lives next door will be able to assist him if needed but cannot stay with him at his house M2 PT-IP Current Condition Start: 03/20/22 12:52 Freq: NEEDED Status: Active Protocol: Document 03/20/22 10:50 AB (Rec: 03/20/22 13:02 AB [email or web address]) Physical Therapy Current Condition Current Condition Evaluation Date 03/20/22 Treatment Diagnosis UTI; YELITZA; difficulty in walking Onset Date 03/19/22 M3 PT-IP Subjective Start: 03/20/22 12:52 Freq: NEEDED Status: Active Protocol: Document 03/20/22 10:50 AB (Rec: 03/20/22 13:02 AB [email or web address]) Subjective Physical Therapy Visit Type Type Initial Evaluation Visit Start Time 10:50 Visit Stop Time 11:15 Total Visit Minutes 25 Number of MANAGER INVESTIGATIONS Visits 0 Physical Therapy Visit Comments Patient Comments agreeable to do PT Therapy Pain Assessment Pain Present Pain Present Denied Pain M4 PT-IP Mobility and Gait Start: 03/20/22 12:52 Freq: NEEDED Status: Active Protocol: Document 03/20/22 10:50 AB (Rec: 03/20/22 13:02 AB [email or web address]) PT-Bed Mobility Assessment Supine to Sit Supine to Sit Standby Assistance PT-Transfer Assessment Sit to and From Stand Sit to and from Stand Maximum Assistance,1 Person Assistance,2 Person Assistance ,Use of Upper Extremities Equipment Transfer Assistive Device Gait Belt,Front Wheeled Walker Orthotic/Prosthetic Devices or Brace: No Transfers Transfer Destination Chair Transfer Technique ambulated Transfer Ability Level of Assist Maximum Assistance,2 Person Assistance,Use of Upper Extremities Comments Mobility Comments completed supine to sit SBA. pt is impulsive and cued for safety. able to sit on EOB min A. initial LOB in sitting with decrease trunk control. completed sit to stand max A x 1-2 and max cues and ambulated ~ 5 ft max A x 2 and cues using fWW. presents with unsteady gait with knee buckling requirng max A x1 -2 for balance and max cues for safety. pt with poor safety awareness affecting mobility. pt agreed to sit up on the chair and positioned. Left pt with OT. Gait Assessment Gait Gait Assistance Required: Maximum Assistance,2 Person Assist Distance (Feet) 5 Able to Maintain Weight Bearing Status Yes During Gait Assistive Devices Assistive Device Gait Belt,Front Wheeled Walker Orthotic/Prosthetic Devices or Brace: No Gait Deviations General Gait Pattern Ataxic,Decreased Stride Length ,Decreased Feet Clearance,Step -to Gait Factors Limiting Gait Function Factors Limiting Gait Function Decreased Activity Tolerance, Decreased Strength,Difficulty Following Directions,Pain,Poor Balance,Poor Safety Awareness PT-Balance Assessment Sitting Balance and Reactions Static Sitting Balance Ability Fair Dynamic Sitting Balance Ability Poor Standing Balance and Reactions Static Standing Balance Ability Poor Dynamic Standing Balance Ability Poor M5 PT-IP Objective Assessments Start: 03/20/22 12:52 Freq: NEEDED Status: Active Protocol: Document 03/20/22 10:50 AB (Rec: 03/20/22 13:02 AB [email or web address]) Orientation Orientation/Cognition Level of Alertness Alert Orientation Name,Place,Situation Language Function Ability Hard of Hearing Safety Awareness Decreased Safety Awareness Gross Range of Motion Lower Extremity ROM Assessment Within Functional Limits Strength Lower Extremity Strength Assessment Bilaterally Impaired Hip 3-/5 Knee 3-/5 Sensation Assessment Sensation Gross Sensation WNL Muscle Tone Muscle Tone WNL Yes M6 PT-IP Treatment Start: 03/20/22 12:52 Freq: NEEDED Status: Active Protocol: Document 03/20/22 10:50 AB (Rec: 03/20/22 13:02 AB [email or web address]) Physical Therapy Treatment Education Education Provided Safety M7 PT-IP Assessment and Plan Start: 03/20/22 12:52 Freq: NEEDED Status: Active Protocol: Document 03/20/22 10:50 AB (Rec: 03/20/22 13:02 AB [email or web address]) PT Summary Assessment and Plan Potential Rehabilitation Potential Fair Status of Condition at Evaluation Evolving Summary Impairments Pain,ROM,Strength,Balance, Coordination,Sensation,Tone, Cognition,Bed Mobility, Transfers,Gait,Activity Tolerance Assessment Summary pt requiring max A x 2 for mobility using FWW and presents with unsteady gait with knee buckling. pt will require SNF rehab at this time . will continue to assess progress. Goals Bed Mobility Goal Independent Transfer Goal Minimal Assistance,Front Wheeled Walker Gait Goal Minimal Assistance,Front Wheel Walker Gait Distance 50 Other Goals improve transfers and ambulation using FWW SBA 150 ft Frequency of Treatment Frequency Of Treatment Once a Day Treatment Plan Physical Therapy Treatment Plan Bed Mobility Training,Transfer Training,Gait Training, Therapeutic Exercise,Balance Retraining,Discharge Planning, Hot or Cold Pack,Neuromuscular Re-ed,Coordination Retraining ,Manual Therapy Precautions Other Precautions falls Recommendations To Nursing Amount of Assist Needed 2 Person Assist Discharge Recommendations PT Discharge Recommendations SNF Rehab Transportation Needs at Discharge Wheelchair/Cabulance
--- NOTE | 2022-03-20 11:25 | OT.IP.EVAL ---
Past Medical History (Last Reviewed 03/19/22 @ 11:43 by Hazel Anderson DO) Atonic bladder (~08/2019) BPH w urinary obs/LUTS Elevated PSA Essential hypertension (01/11/15) FH: RANDI-BSO (total abdominal hysterectomy and bilateral salpingo-oophorectomy) Flaccid neurogenic bladder Gout History of UTI Mixed hyperlipidemia Right inguinal hernia Stenosis of cervical spine with myelopathy Surgical History (Last Reviewed 03/19/22 @ 11:43 by Hazel Anderson DO) Status post cervical arthrodesis (~08/2019) Occupational Therapy Inpatient Evaluation/Re-Eval M1 PT/OT-IP Prior Functional Status Start: 03/20/22 11:29 Freq: NEEDED Status: Active Protocol: Document 03/20/22 10:53 [facility] (Rec: 03/20/22 11:49 [facility] [id number]) Medical Review Prior Functional Status Communication Pt a little slow to get his words out. Mobility and Gait Pt states uses a 4ww at times on and off , otherwise furniture cruises at home. Activities of Daily Living and IADL's Pt states prior completely independent with all ADl and IADL needs. Pt states his brother assists him but at this time unable to identify what help his brother provides him. Prior Functional Level (Other details) Pt states his brother lives next door and assist him at times. Social History Household Members family,none Living Arrangements House Number of Floors (Floors) Two Floors Number of Stairs To Enter/Railing? Pt states lives on the main floor and has a ramp to enter his house. Home Environment Standard Height Toilet,Tub/ Shower Home Equipment Four Wheel Walker,Hand Held Shower,Grab Bars In Shower M2 OT-IP Current Condition Start: 03/20/22 11:29 Freq: Status: Active Protocol: Document 03/20/22 10:53 [facility] (Rec: 03/20/22 11:49 [facility] [id number]) Occupational Therapy Current Condition Current Condition Evaluation Date 03/20/22 Treatment Diagnosis Sepsis, UTI, decreased mobility Diagnosis Onset Date 03/19/22 M3 OT- IP Subjective and Pain Start: 03/20/22 11:29 Freq: Status: Active Protocol: Document 03/20/22 10:53 [facility] (Rec: 03/20/22 11:49 [facility] [id number]) OT- Subjective Occupational Therapy Visit Type Type Initial Evaluation Visit Start Time 10:53 Visit Stop Time 11:25 Total Visit Minutes 32 Occupational Therapy Visit Comments Patient Comments Pt agreed to get up. Patient/Caregiver Goals To get better. OT Pain Assessment Pain When Pain Assessed At Rest Pain Present Pain Present Denied Pain M4 OT- IP ADL's Start: 03/20/22 11:29 Freq: Status: Active Protocol: Document 03/20/22 10:53 [facility] (Rec: 03/20/22 11:49 [facility] [id number]) OT [id number] Comments OT Self-Feeding Comments NOt at meal time. Pt has difficulty with coordination and will most likely need some assist for set-up. OT ADL-Grooming General Evaluation Grooming Ability Standby Assistance Areas Needing Assistance Retrieving/Set-up of Grooming Items Comments OT Grooming Comments SBA ,set-up while seated from the recliner OT ADL-Oral Care General Eval Oral Care Ability Standby Assistance Areas of Assistance Retrieving/Set-Up of Items Comments Oral Care Comments Increased time and occasional cue for sequence of task as pt processing slowly. OT ADL-Dressing General Eval Lower Body Dressing Ability Maximum Assistance Comments OT Dressing Comments At this time pt will need assist for LB dressing needs due to poor balance. OT ADL-Toileting General Evaluation Toileting Ability Total Assistance Comments OT Toileting Comments Floey in place. Prior pt self caths at home OT ADL-Bathing Comments OT Bathing Comments At this time sponge bathing more appropriate at this time. M5 OT- IP IADL's Start: 03/20/22 11:29 Freq: Status: Active Protocol: Document 03/20/22 10:53 [facility] (Rec: 03/20/22 11:49 [facility] [id number]) OT-Instrumental Activities of Daily Living Home Safety Awareness Ability to Problem Solve Emergency Able to Problem Solve Situations Home Safety Comments Pt needing increased time to figure out home safety questions. Medication Management Medication Management Comments At this time pt thinking a little more slowly at this time and would benefit from supervision. Money Management Money Management Comments At this time pt thinking a little more slowly at this time and would benefit from supervision. Meal Preparation Meal Preparation Comments Pt will need assist at this time. Equity Research Analyst Equity Research Analyst Comments Pt will need assist at this time. Driving Driving Concerns Identified Regarding Safety M6 OT- IP Functional Cognition Start: 03/20/22 11:29 Freq: Status: Active Protocol: Document 03/20/22 10:53 [facility] (Rec: 03/20/22 11:49 [facility] [id number]) Cognitive Factors Limiting Selfcare Function Cognitive Ability Level of Alertness Alert Patient Orientation Name,Place,Situation Attention Span Ability Capable of Focused Attention, Capable of Sustained Attention Ability to Follow Commands Able to Follow One Step Commands Safety Awareness Underestimates Need for Assistance Cognitive Comments Cognitive Assessment Comments Pt needing increased time and occasional cue to help process task of oral care at this time. Pt agreed that he is thinking a little more slowly now. Pt able to answer all home safety questions accurately with increased time . Once pt clears to may be beneficial to do a formal cognitive assessment. Pt having decreased safety awareness and needing cues to keep the FWW closer to him. OT- Vision and Hearing OT- Hearing Assessment OT- Hearing Assessment Use of Hearing Aids OT- Vision Assessment Vision Assessment Comments Pt wears his glasses for distance and driving. M7 OT- IP Mobility and Balance Start: 03/20/22 11:29 Freq: Status: Active Protocol: Document 03/20/22 10:53 [facility] (Rec: 03/20/22 11:49 [facility] [id number]) OT- Bed Mobility Assessment Supine to Sit Supine to Sit Assist Standby Assistance OT-Transfer Assessment Sit to and From Stand Sit to and from Stand Maximum Assistance,1 Person Assistance,2 Person Assistance Transfers Transfer Ability Maximum Assistance,2 Person Assistance Technique Transfer Destination Bed,Chair OT- Balance Assessment Sitting Balance and Reactions Static Sitting Balance Ability Fair Standing Balance and Reactions Static Standing Balance Ability Poor Dynamic Standing Balance Ability Poor M8 OT- IP Objective Assessments Start: 03/20/22 11:29 Freq: Status: Active Protocol: Document 03/20/22 10:53 [facility] (Rec: 03/20/22 11:49 [facility] [id number]) OT Gross Range of Motion Upper Extremity Range of Motion Assessment Within Functional Limits OT Strength Upper Extremity Strength Assessment Within Functional Limits OT- Coordination Assessment Upper Extremity Finger to Nose Test Right UE Impaired Comments Coordination Comments right hand slightly off for fiinger to nose OT-Muscle Tone Assessment Muscle Tone WNL Yes M9 OT- IP Assessment and Plan Start: 03/20/22 11:29 Freq: Status: Active Protocol: Document 03/20/22 10:53 [facility] (Rec: 03/20/22 11:49 [facility] [id number]) OT Summary Assessment and Plan Potential Rehabilitation Potential Good Analytic Complexity at Evaluation Moderate Summary OT Impairments Strength,Balance,Functional Cognition,Functional Mobility, Self-Feeding,Grooming,Dressing ,Toileting,Bathing,Toilet Transfers,Shower Transfers, Activity Tolerance Progress Towards Goals Slow Progress due to Medical Issues,Slow Progress due to Activity Tolerance,Slow Progress due to Cognition Assessment Summary Pt MOD complexity and main barriers are decreased balance , a bit slow to process and sequence for ADl and mobility needs- most likely due to his UTI, and now needing two person assist for ADl and mobility needs. Pt will greatly benefit from skilled rehab prior to going home. Goals Self-Feeding Goal Independent Grooming Goal Independent Dressing Goal Independent Toileting Goal Independent Bathing Goal Independent Toilet Transfer Goal Independent Shower Transfer Goal Independent Days to Meet Goals 25 Frequency of Treatment Frequency Of Treatment Once a Day Treatment Plan OT Treatment Plan ADL Training,Functional Cognition Training,Functional Mobility,Patient/Family Education,Discharge Planning Other Treatment Recommendations and Next Transfer to [facility] with MODA X 2 Treatment Focus with FWW. Discharge Recommendations OT Discharge Recommendations SNF Rehab Transportation Needs at Discharge Wheelchair/Cabulance
[2022-03-20 13:00] VITALS: BP 109/55; PULSE 67; RESP 20; TEMP 36.2; O2SAT 96
[2022-03-20] MEDS: cefTRIAXone 2,000 MG in SODIUM CHLORIDE 0.9% 100 ML 200 MG IV (13:31)
[2022-03-20] MEDS: FERROUS SULFATE 325 MG TABLET PO (13:31)
[2022-03-20 20:01] VITALS: BP 127/62; PULSE 73; RESP 17; TEMP 36.4; O2SAT 97
[2022-03-20] MEDS: ATORVASTATIN 20 MG TABLET 10 MG PO (21:03)
[2022-03-21] MEDS: SODIUM CHLORIDE 0.9% 1,000 ML 100 ML IV ×2 (00:02→11:07)
[2022-03-21 05:42] VITALS: BP 122/68; PULSE 69; RESP 16; TEMP 36.3; O2SAT 93
[2022-03-21 06:08] LABS: Add Manual Diff / Slide Review NO; Basophils Absolute Auto 0 /uL (0-100); Basophils Percent Auto 0.2 % (0-2); Eosinophils Absolute Auto 100 /uL (0-450); Eosinophils Percent Auto 0.5 % (2-4); Hematocrit 34.5 % (41-53); Hemoglobin 11.6 g/dL (13.5-17.5); Lymphocytes Absolute Auto 600 /uL (1100-4500); Lymphocytes Percent Auto 5.4 % (25-40); Mean Corpuscular HGB Conc 33.7 % (30-36); Mean Corpuscular Hemoglobin 28.9 PG (26-34); Mean Corpuscular Volume 85.6 fL (80-100); Monocytes Absolute Auto 600 /uL (0-900); Monocytes Percent Auto 6.3 % (3-14); Neutrophils Absolute Auto 9000 /uL (1500-7000); Neutrophils Percent Auto 87.6 % (50-75); Platelet Count 287 X10^3/uL (150-400); Red Blood Cell Count 4.03 X10^6/uL (4.5-5.9); Red Cell Distribution Width 13.7 % (11.6-14.8); White Blood Cell Count 10.3 X10^3/uL (4.5-11.0)
[2022-03-21 06:12] LABS: BUN Creatinine Ratio 33.6 (6-22); Blood Urea Nitrogen 44 mg/dL (9-20); Calcium 7.5 mg/dL (8.4-10.2); Carbon Dioxide 20 mmol/L (22-32); Chloride 102 mmol/L (98-107); Estimated Glomerular Filt Rate 56 mL/min (>60); Glucose 95 mg/dL (80-110); HEMOLYSIS < 15 (0-50); Potassium 3.8 mmol/L (3.4-5.1); Sodium 130 mmol/L (137-145)
[2022-03-21 08:55] VITALS: BP 122/68; PULSE 69
[2022-03-21] MEDS: AMLODIPINE 5 MG TABLET 10 MG PO (08:55)
[2022-03-21] MEDS: FERROUS SULFATE 325 MG TABLET PO (08:55)
[2022-03-21] MEDS: LOSARTAN 50 MG TABLET 100 MG PO (08:55)
--- NOTE | 2022-03-21 09:22 | PM.PN.1 ---
Subjective Subjective Date Patient Seen: 03/21/22 Interval history: The pt today reports the he feels well. He is hoping to go home soon. He has no specific concerns today. Exam Vital Signs (past 8 hours): - 03/21/22 05:42 03/21/22 08:55 Temperature 97.3 F L Pulse Rate 69 69 Respiratory Rate 16 Blood Pressure 122/68 122/68 Pulse Oximetry 93 Oxygen Delivery Method Room Air Oxygen Flow Rate 0 Narrative Exam Narrative: Gen:? NAD, sitting comfortably in bed, appears well CV:? RRR, grade 4/6 systolic murmur Resp:? clear to auscultation bilaterally Abd:? soft, nontender, nondistended, normoactive bowel sounds Ext:? no edema Objective Labs Result Diagrams: 03/21/22 05:29 03/21/22 05:29 Labs: Laboratory Results - last 24 hr 03/21/22 03/21/22 05:29 05:29 WBC 10.3 RBC 4.03 L Hgb 11.6 L Hct 34.5 L MCV 85.6 MCH 28.9 MCHC 33.7 RDW 13.7 Plt Count 287 Neut % (Auto) 87.6 H Lymph % (Auto) 5.4 L [place] % (Auto) 6.3 Eos % (Auto) 0.5 L Baso % (Auto) 0.2 Neut # (Auto) 9000 H Lymph # (Auto) 600 L [place] # (Auto) 600 Eos # (Auto) 100 Baso # (Auto) 0 Sodium 130 L Potassium 3.8 Chloride 102 Carbon Dioxide 20 L BUN 44 H Creatinine 1.31 H Estimated GFR 56 L BUN/Creatinine Ratio 33.6 H Glucose 95 Calcium 7.5 L PFSH Medical History Atonic bladder (~08/2019) BPH w urinary obs/LUTS Elevated PSA Essential hypertension (01/11/15) FH: RANDI-BSO (total abdominal hysterectomy and bilateral salpingo-oophorectomy) Flaccid neurogenic bladder Gout History of UTI Mixed hyperlipidemia Right inguinal hernia Stenosis of cervical spine with myelopathy Surgical History Status post cervical arthrodesis (~08/2019) Social History household members: family and none Smoking Status: Former smoker alcohol intake: current Assessment & Plan Assessment & Plan narrative: Pt is a 76yo man with HTN, 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 1)? UTI:? Pt does self catheterize at home due to neuropathic bladder, likely cause of UTI.? WBC count improving.? Urine culture growing Klebsiella and additional gram negative bacilli. - Continue Ceftriaxone - F/u urine culture for additional microbe - continue mIVF 2)? Weakness:? Most likely due to UTI in setting of gradual chronic decline.? Head CT negative in the ED. - PT/OT consulted, recommends SNF placement. Will continue working with them. 3)? YELITZA:? Cr elevated to 2.08 with normal baseline at admission.? Continues to improve. - continue mIVF. No evidence of fluid overload at this point. - Continue to trend 4)? Mild iron deficiency anemia:? Pt denies any melena recently.? Not an acute issue, but may need to be addressed as an outpatient. - Continue to trend - Continue daily iron supplement 5)? HTN:? BP stable - Continue home medications FEN:? Cardiac diet Code:? Full DVT ppx:? Lovenox Dispo:? Pending continued improvement in YELITZA, final urine culture. Anticipate should be ready for d/c tomorrow. Pt does not wish to go to SNF, desires discharge home. Will still look at placement options based on PT/OT recommendations. Care management will talk with pt about potential placement as well. Very concerned about pt fall risk with d/c home at this point. Time Spent With Patient Critical Care time: I spent a total of [] minutes of critical care time on this patient's care today; this time is exclusive of procedural time. Quality VTE Deep Vein Thrombosis/Pulmonary Embolism Present on Admission: No
--- NOTE | 2022-03-21 09:26 | CM.DANOTE ---
Addendum entered by Delma Gay R.N. 03/21/22 11:15: Received auth from [facility], for senior care. Auth number is: [id number]. Called Vi back at [facility], she is in for August, and gave her the information. Let her know that he should be ready by tomorrow, auth is good for 48 hours. Original Note: DCP: Case received, EMR reviewed and met with patient. Introduced self and role. Was able to obtain information regarding patient's baseline activity status prior to hospitalization, as well as her current living situation. DCP assessment completed with information currently available. Patient is a 76 year old male who admitted on 03/19 in the afternoon, to the care of the hospitalist team. PCP: Dr. Hamm. Payer: confirmed: [facility]. Patient came to the hospital via private vehicle secondary to weakness. Patient has history of crvical myopathy, as well as neurogenic bladder, in which he self caths multiple of times a day. Notes indicate that patient's brother found him on the floor, time unknown. Patient holds diagnosis of UTI with may bacteria, weakness, YELITZA. Met with Dr. Miles after she had seen patient. She feels that skilled would be beneficial for patient before going home, but he is reluctant to do so. She indicated that patient most likely will be ready for discharge tomorrow. Let her know that this DC Optician will meet with patient. He is also [facility], will need auth. Had Cara, lead assistant manager, fax [facility] over P.T, and O.T notes from yesterday, in which skilled is recommended. Met with patient in his room. He is alert and oriented, hard of hearing. Confirmed that he resides on [address], has a walker for home use, and has a brother that lives next door. He does self cath. He is hopeful to go home, but he would only want to be here in town. [facility] is reviewing. P: DCP to continue to follow. Plan is skilled versus home with home health. Delma Gay RN/Retail Shift Leader Discharge Planning/Care Management CM Discharge Assessment Start: 03/21/22 09:23 Freq: Status: Active Protocol: Document 03/21/22 09:24 (Rec: 03/21/22 09:25 [id number]) Discharge Planning Assessment Assigned Film Loader Delma Gay RN/Retail Shift Leader Advance Directives? No History Provided By Patient,Medical Record Prior Living Arrangements House Household Members family,none Type of transporation used prior to Drives own vehicle admit DME Already Rented / Owned FWW / Walker Patient/Family Preference Detention Facility,Home with Home Health Barriers to Discharge Yes Comment Lives alone, weakness. Discharge Plan Detention Facility Transportation Arrangement Facility Referrals Initiated Detention Additional Comment Sent initial referral to [facility] Medicare Choice List Provided Yes SNF/HH Preference Patient wants to be here in town. Has Agency SNF been contacted Yes Comment [employer] Invent[employer]ator Whiteboard Updated in Patient Room with Yes name and ext. # of Film Loader Review Status In Process Next Review Type Continued Stay Rev
[2022-03-21] MEDS: INFLUENZA HD VACCINE 0.7 ML SYRINGE IM (10:00)
[2022-03-21 13:00] VITALS: BP 114/57; PULSE 89; RESP 20; TEMP 36.4; O2SAT 95
[2022-03-21] MEDS: cefTRIAXone 2,000 MG in SODIUM CHLORIDE 0.9% 100 ML 200 MG IV (13:22)
--- NOTE | 2022-03-21 15:49 | OT.IP.TRT ---
Current Diagnoses Urinary tract infection, site not specified (03/19/22) Occupational Therapy Treatment Note M2 OT-IP Current Condition Start: 03/20/22 11:29 Freq: Status: Active Protocol: Document 03/20/22 10:53 [facility] (Rec: 03/20/22 11:49 [facility] [id number]) Occupational Therapy Current Condition Current Condition Evaluation Date 03/20/22 Treatment Diagnosis Sepsis, UTI, decreased mobility Diagnosis Onset Date 03/19/22 M3 OT- IP Subjective and Pain Start: 03/20/22 11:29 Freq: Status: Active Protocol: Document 03/21/22 15:54 [facility] (Rec: 03/21/22 16:01 [facility] [id number]) OT- Subjective Occupational Therapy Visit Type Type Treatment Note Visit Start Time 15:40 Visit Stop Time 15:49 Total Visit Minutes 9 Occupational Therapy Visit Comments Patient Comments Pt not wanting to shower at this time as states just sponged off yesterday. Tried to initiate cognitive assessment and pt states, I do not like to do those tests. Patient/Caregiver Goals To go home. M6 OT- IP Functional Cognition Start: 03/20/22 11:29 Freq: Status: Active Protocol: Document 03/21/22 15:54 [facility] (Rec: 03/21/22 16:01 [facility] [id number]) Cognitive Factors Limiting Selfcare Function Cognitive Ability Level of Alertness Alert Patient Orientation Name,Place,Situation Attention Span Ability Capable of Focused Attention, Capable of Sustained Attention Ability to Follow Commands Able to Follow One Step Commands Cognitive Comments Cognitive Assessment Comments Pt able to answer home safety questions with no issues today and able to recall having talked to OT yesterday regarding home safety questions. Pt agreed to roll to side lying in bed as per nursing pt now needing a waffle cushion when sitting upright. M7 OT- IP Mobility and Balance Start: 03/20/22 11:29 Freq: Status: Active Protocol: Document 03/21/22 15:54 [facility] (Rec: 03/21/22 16:01 [facility] [id number]) OT- Bed Mobility Assessment Rolling Level of Assistance Independent M9 OT- IP Assessment and Plan Start: 03/20/22 11:29 Freq: Status: Active Protocol: Document 03/21/22 15:54 [facility] (Rec: 03/21/22 16:01 [facility] [id number]) OT Summary Assessment and Plan Potential Rehabilitation Potential Good Analytic Complexity at Evaluation Moderate Summary OT Impairments Strength,Balance,Functional Cognition,Functional Mobility, Self-Feeding,Grooming,Dressing ,Toileting,Bathing,Toilet Transfers,Shower Transfers, Activity Tolerance Progress Towards Goals Progressing Toward Goals Assessment Summary Pt thinking better today and agreeing to go to skilled rehab. Pt to go to skilled rehab when medically stable. Goals Self-Feeding Goal Independent Grooming Goal Independent Dressing Goal Independent Toileting Goal Independent Bathing Goal Independent Toilet Transfer Goal Independent Shower Transfer Goal Independent Days to Meet Goals 24 Frequency of Treatment Frequency Of Treatment Once a Day Treatment Plan OT Treatment Plan ADL Training,Functional Mobility,Patient/Family Education,Discharge Planning Other Treatment Recommendations and Next NINA for LB dressing Treatment Focus Discharge Recommendations OT Discharge Recommendations SNF Rehab Transportation Needs at Discharge Wheelchair/Cabulance
--- NOTE | 2022-03-21 15:49 | PT.IPTN ---
Current Diagnoses Urinary tract infection, site not specified (03/19/22) Physical Therapy Treatment Note M2 PT-IP Current Condition Start: 03/20/22 12:52 Freq: NEEDED Status: Active Protocol: Document 03/20/22 10:50 AB (Rec: 03/20/22 13:02 AB [id number]) Physical Therapy Current Condition Current Condition Evaluation Date 03/20/22 Treatment Diagnosis UTI; YELITZA; difficulty in walking Onset Date 03/19/22 M3 PT-IP Subjective Start: 03/20/22 12:52 Freq: NEEDED Status: Active Protocol: Document 03/21/22 15:37 LJ (Rec: 03/21/22 15:48 LJ [id number]) Subjective Physical Therapy Visit Type Type Treatment Note Visit Start Time 14:21 Visit Stop Time 14:42 Total Visit Minutes 21 Notes Nephew in room Number of RETAIL GROCER Visits 1 Physical Therapy Visit Comments Patient Comments agreable to do PT Therapy Pain Assessment Pain Present Pain Present Denied Pain M4 PT-IP Mobility and Gait Start: 03/20/22 12:52 Freq: NEEDED Status: Active Protocol: Document 03/21/22 15:37 LJ (Rec: 03/21/22 15:48 LJ [id number]) PT-Transfer Assessment Sit to and From Stand Sit to and from Stand Contact Guard Assistance, Minimal Assistance,1 Person Assistance,Use of Upper Extremities Equipment Transfer Assistive Device Gait Belt,Front Wheeled Walker Orthotic/Prosthetic Devices or Brace: No Transfers Transfer Destination Chair Transfer Technique ambulated Transfer Ability Level of Assist Contact Guard Assistance, Minimal Assistance,1 Person Assistance,Use of Upper Extremities Comments Mobility Comments Pt in chair upon arrival. Completed sit>stand Zuleyma then once standing CGA. Pt marched in place to assiss balance and LE strength prior to atteempting ambulation. Pt ambulated around the foot of the bed then back to the chair . Pt shakey and moving slowly. RETAIL GROCER suggested repeating the lap around the room but pt refused stating he was too tired. Pt sat in chair with controlled descent. Pt given all needs and left in chair with nephew in room. Gait Assessment Gait Gait Assistance Required: Contact Guard Assist,Minimum Assistance,1 Person Assist Distance (Feet) 28 Able to Maintain Weight Bearing Status Yes During Gait Assistive Devices Assistive Device Gait Belt,Front Wheeled Walker Orthotic/Prosthetic Devices or Brace: No Gait Deviations General Gait Pattern Ataxic,Decreased Stride Length ,Decreased Feet Clearance,Step -to Gait Factors Limiting Gait Function Factors Limiting Gait Function Decreased Activity Tolerance, Decreased Strength,Difficulty Following Directions,Pain,Poor Balance,Poor Safety Awareness Comments Gait Comments see mobility section M5 PT-IP Objective Assessments Start: 03/20/22 12:52 Freq: NEEDED Status: Active Protocol: Document 03/20/22 10:50 AB (Rec: 03/20/22 13:02 AB [id number]) Orientation Orientation/Cognition Level of Alertness Alert Orientation Name,Place,Situation Language Function Ability Hard of Hearing Safety Awareness Decreased Safety Awareness Gross Range of Motion Lower Extremity ROM Assessment Within Functional Limits Strength Lower Extremity Strength Assessment Bilaterally Impaired Hip 3-/5 Knee 3-/5 Sensation Assessment Sensation Gross Sensation WNL Muscle Tone Muscle Tone WNL Yes M6 PT-IP Treatment Start: 03/20/22 12:52 Freq: NEEDED Status: Active Protocol: Document 03/21/22 15:37 LJ (Rec: 03/21/22 15:48 LJ [id number]) Physical Therapy Treatment Education Education Provided Safety M7 PT-IP Assessment and Plan Start: 03/20/22 12:52 Freq: NEEDED Status: Active Protocol: Document 03/21/22 15:37 LJ (Rec: 03/21/22 15:48 LJ [id number]) PT Summary Assessment and Plan Potential Rehabilitation Potential Fair Status of Condition at Evaluation Evolving Summary Impairments Pain,ROM,Strength,Balance, Coordination,Sensation,Tone, Cognition,Bed Mobility, Transfers,Gait,Activity Tolerance Assessment Summary Pt improving with ambulation and strength. Gait still unsteady but no LOB. Pt will require SNF at this time to improve strength, balance, and gait prior to returning home Goals Bed Mobility Goal Independent Transfer Goal Minimal Assistance,Front Wheeled Walker Gait Goal Minimal Assistance,Front Wheel Walker Gait Distance 50 Other Goals improve transfers and ambulation using FWW SBA 150 ft Frequency of Treatment Frequency Of Treatment Once a Day Treatment Plan Physical Therapy Treatment Plan Bed Mobility Training,Transfer Training,Gait Training, Therapeutic Exercise,Balance Retraining,Discharge Planning, Hot or Cold Pack,Neuromuscular Re-ed,Coordination Retraining ,Manual Therapy Precautions Other Precautions falls Recommendations To Nursing Amount of Assist Needed 1 Person Assist Discharge Recommendations PT Discharge Recommendations SNF Rehab
[2022-03-21] MEDS: ATORVASTATIN 20 MG TABLET 10 MG PO (20:10)
[2022-03-21 21:46] VITALS: BP 132/76; PULSE 79; RESP 18; TEMP 36.5; O2SAT 97
[2022-03-22 05:00] VITALS: BP 123/70; PULSE 82; RESP 18; TEMP 36.2; O2SAT 96
[2022-03-22 05:20] LABS: Hematocrit 35.5 % (41-53); Hemoglobin 12.1 g/dL (13.5-17.5); Mean Corpuscular Volume 85.2 fL (80-100); Platelet Count 284 X10^3/uL (150-400); Red Blood Cell Count 4.17 X10^6/uL (4.5-5.9); Red Cell Distribution Width 13.6 % (11.6-14.8); White Blood Cell Count 8.8 X10^3/uL (4.5-11.0)
[2022-03-22 05:21] LABS: Add Manual Diff / Slide Review YES
[2022-03-22 05:23] LABS: BUN Creatinine Ratio 31.3 (6-22); Blood Urea Nitrogen 36 mg/dL (9-20); Calcium 7.7 mg/dL (8.4-10.2); Carbon Dioxide 23 mmol/L (22-32); Chloride 101 mmol/L (98-107); Estimated Glomerular Filt Rate > 60 mL/min (>60); Glucose 101 mg/dL (80-110); HEMOLYSIS < 15 (0-50); Potassium 3.9 mmol/L (3.4-5.1); Sodium 132 mmol/L (137-145)
[2022-03-22 06:44] LABS: Neutrophils Absolute Manual 7568 /uL (3000-5900); Total Cells Counted 100
[2022-03-22 06:45] LABS: RBC Morphology Norm
--- NOTE | 2022-03-22 08:36 | P.DS_ITS ---
History of Present Illness History of Present Illness Chief complaint: weak /cant stand/had to be picked up off the floor Discharge Providers Provider Date of admission: 03/19/22 13:47 Discharge Date: 03/22/22 Primary care physician: Norberto Hamm MD Consults: 03/19/22 15:02 Consult to Occupational Therapy Evaluate & Treat Comment: Physician Instructions: Evaluate and treat Consult to Physical Therapy Evaluate & Treat Comment: Physician Instructions: Evaluate and Treat Discharge provider: Jose Carbajal MD Summary Hospital Course Discharge Diagnosis: Urinary tract infection growing out E coli and strep pneumoniae only resistant to ampicillin. Acute kidney injury resolved with hydration Weakness due to urinary tract infection and acute kidney injury Iron deficiency anemia Hypertension Neuropathic bladder with self catheterization Cervical myelopathy C3 through 6 Hospital Course: 76-year-old male with hypertension neuropathic bladder self catheterization BPH cervical myopathy presented to the emergency department with worsening weakness and fatigue. Patient was found to have elevated white blood cell count signs and symptoms of urinary tract infection due to self catheterization and acute kidney injury was admitted to the hospital for further treatment. In the hospital patient received IV antibiotics and IV fluids. During the course of his hospital stay he remained afebrile. His white blood cell count improved. His kidney injury was improved with the IV fluids. The time of d ischarge. He is still quite weak. His blood cultures were negative his urine culture grew out E coli and strep pneumoniae sensitive to everything but ampicillin. Due to his ongoing weakness and difficulty with ambulation he will be discharged to [facility] for further rehabilitation and anticipate going home. Be continued on a 5 day course of antibiotics. And his home medication. Exam Vital Signs (past 8 hours): - 03/22/22 05:00 Temperature 97.2 F L Pulse Rate 82 Respiratory Rate 18 Blood Pressure 123/70 Pulse Oximetry 96 Oxygen Flow Rate 0 Oxygen Delivery Method Room Air Oxygen Flow Rate 0 Objective Labs Result Diagrams: 03/22/22 04:30 03/22/22 04:30 Labs: Laboratory Results - last 24 hr 03/22/22 03/22/22 04:30 04:30 WBC 8.8 RBC 4.17 L Hgb 12.1 L Hct 35.5 L MCV 85.2 MCH 29.0 MCHC 34.0 RDW 13.6 Plt Count 284 Neut % (Auto) Not Reportable Lymph % (Auto) Not Reportable [place] % (Auto) Not Reportable Eos % (Auto) Not Reportable Baso % (Auto) Not Reportable Lymph # (Auto) Not Reportable [place] # (Auto) Not Reportable Baso # (Auto) Not Reportable Total Counted 100 Seg Neutrophils % 82.0 H Band Neutrophils % 4.0 Lymphocytes % (Manual) 4.0 L Atypical Lymphs % 2.0 H Monocytes % (Manual) 5.0 Eosinophils % (Manual) 1.0 L Myelocytes % 2.0 H Neutrophils # (Manual) 7568 H RBC Morphology Norm Sodium 132 L Potassium 3.9 Chloride 101 Carbon Dioxide 23 BUN 36 H Creatinine 1.15 Estimated GFR > 60 BUN/Creatinine Ratio 31.3 H Glucose 101 Calcium 7.7 L PFSH Medical History Atonic bladder (~08/2019) BPH w urinary obs/LUTS Elevated PSA Essential hypertension (01/11/15) FH: RANDI-BSO (total abdominal hysterectomy and bilateral salpingo-oophorectomy) Flaccid neurogenic bladder Gout History of UTI Mixed hyperlipidemia Right inguinal hernia Stenosis of cervical spine with myelopathy Surgical History Status post cervical arthrodesis (~08/2019) Social History household members: family and none Smoking Status: Former smoker alcohol intake: current Discharge Plan Discharge Plan Patient Disposition: SNF Transfer to: [facility] Discharge orders & Medications Prescriptions: New ferrous sulfate 325 mg (65 mg iron) Tablet 325 mg PO DAILY Qty: 30 0RF cefdinir 300 mg capsule 300 mg PO BID Qty: 10 0RF Continued losartan 100 mg tablet 100 mg PO DAILY Qty: 90 0RF minoxidil 10 mg tablet 10 mg PO QAM Qty: 90 0RF amlodipine 10 mg tablet 10 mg PO DAILY Qty: 90 0RF Rx Instructions: pt will need to be seen before next renewal atorvastatin 10 mg tablet 10 mg PO BEDTIME Qty: 90 0RF Rx Instructions: pt will need to be seen before next renewal finasteride 5 mg tablet 5 mg PO DAILY Follow up/Referrals: Norberto Hamm MD [Primary Care Provider] - Discharge Data Primary Care Provider: Norberto Hamm Quality VTE Deep Vein Thrombosis/Pulmonary Embolism Present on Admission: No
--- NOTE | 2022-03-22 08:46 | OT.IP.TRT ---
Current Diagnoses Urinary tract infection, site not specified (03/19/22) Occupational Therapy Treatment Note M2 OT-IP Current Condition Start: 03/20/22 11:29 Freq: Status: Active Protocol: Document 03/20/22 10:53 [facility] (Rec: 03/20/22 11:49 [facility] [id number]) Occupational Therapy Current Condition Current Condition Evaluation Date 03/20/22 Treatment Diagnosis Sepsis, UTI, decreased mobility Diagnosis Onset Date 03/19/22 M3 OT- IP Subjective and Pain Start: 03/20/22 11:29 Freq: Status: Active Protocol: Document 03/22/22 11:22 [facility] (Rec: 03/22/22 11:31 [facility] [id number]) OT- Subjective Occupational Therapy Visit Type Type Treatment Note Visit Start Time 10:50 Visit Stop Time 11:21 Total Visit Minutes 31 Occupational Therapy Visit Comments Patient Comments Pt agreed to shower. Patient/Caregiver Goals To get better so able to go home. OT Pain Assessment Pain When Pain Assessed At Rest Pain Present Pain Present Denied Pain M4 OT- IP ADL's Start: 03/20/22 11:29 Freq: Status: Active Protocol: Document 03/22/22 11:22 [facility] (Rec: 03/22/22 11:31 [facility] [id number]) OT ADL-Grooming Comments OT Grooming Comments Pt states did prior. OT ADL-Oral Care Comments Oral Care Comments Pt states did prior. OT ADL-Dressing General Eval Lower Body Dressing Ability Minimal Assistance Comments OT Dressing Comments Assist to help straighten socks on his feet. OT ADL-Toileting Comments OT Toileting Comments Pt has curtis in and states has been incontinent. OT ADL-Bathing Bathing Type Bathing Type Shower General Evaluation Bathing Ability Moderate Assistance Areas Needing Assistance Wash/Dry Upper Body,Wash/Dry Perineal Area Comments OT Bathing Comments Pt able to shower while seated on shower chair and needing assist for his back and pericare needs for thoroughness. M5 OT- IP IADL's Start: 03/20/22 11:29 Freq: Status: Active Protocol: Document 03/20/22 10:53 [facility] (Rec: 03/20/22 11:49 [facility] [id number]) OT-Instrumental Activities of Daily Living Home Safety Awareness Ability to Problem Solve Emergency Able to Problem Solve Situations Home Safety Comments Pt needing increased time to figure out home safety questions. Medication Management Medication Management Comments At this time pt thinking a little more slowly at this time and would benefit from supervision. Money Management Money Management Comments At this time pt thinking a little more slowly at this time and would benefit from supervision. Meal Preparation Meal Preparation Comments Pt will need assist at this time. Message And Delivery Service Pricer Message And Delivery Service Pricer Comments Pt will need assist at this time. Driving Driving Concerns Identified Regarding Safety M6 OT- IP Functional Cognition Start: 03/20/22 11:29 Freq: Status: Active Protocol: Document 03/22/22 11:22 [facility] (Rec: 03/22/22 11:31 [facility] [id number]) Cognitive Factors Limiting Selfcare Function Cognitive Comments Cognitive Assessment Comments Pt able to follow and sequence commands for ADl and mobility needs. M7 OT- IP Mobility and Balance Start: 03/20/22 11:29 Freq: Status: Active Protocol: Document 03/22/22 11:22 [facility] (Rec: 03/22/22 11:31 [facility] [id number]) OT-Transfer Assessment Sit to and From Stand Sit to and from Stand Contact Guard Assistance Transfers Transfer Ability Contact Guard Assistance, Minimal Assistance Technique Transfer Destination Chair,Shower Stall Transfer Technique Stand Step Pivot Devices Transfer Assistive Devices Gait Belt,Front Wheeled Walker Orthotic/Prosthetic Devices or Brace: Yes Comments Mobility Comments Pt able to stand with CGA, pt is a bit unsteady on his feet and needing assist for steadying as his feet are very ataxic. Pt also needing vc to be sure to straighten his legs out. Pt heavily relies on his arms on the FWW for walking. OT- Balance Assessment Sitting Balance and Reactions Static Sitting Balance Ability Good Dynamic Sitting Balance Ability Good Standing Balance and Reactions Static Standing Balance Ability Fair Dynamic Standing Balance Ability Poor M8 OT- IP Objective Assessments Start: 03/20/22 11:29 Freq: Status: Active Protocol: Document 03/20/22 10:53 [facility] (Rec: 03/20/22 11:49 [facility] [id number]) OT Gross Range of Motion Upper Extremity Range of Motion Assessment Within Functional Limits OT Strength Upper Extremity Strength Assessment Within Functional Limits OT- Coordination Assessment Upper Extremity Finger to Nose Test Right UE Impaired Comments Coordination Comments right hand slightly off for finger to nose OT-Muscle Tone Assessment Muscle Tone WNL Yes M9 OT- IP Assessment and Plan Start: 03/20/22 11:29 Freq: Status: Active Protocol: Document 03/22/22 11:22 [facility] (Rec: 03/22/22 11:31 [facility] [id number]) OT Summary Assessment and Plan Potential Rehabilitation Potential Good Analytic Complexity at Evaluation Moderate Summary OT Impairments Strength,Balance,Functional Mobility,Dressing,Toileting, Bathing,Toilet Transfers, Shower Transfers,Activity Tolerance Progress Towards Goals Progressing Toward Goals Assessment Summary Pt going to skilled rehab today. Pt able to tolerate showering today and just needing assist for his back and thoroughness for pericare needs. Goals Self-Feeding Goal Independent Grooming Goal Independent Dressing Goal Independent Toileting Goal Independent Bathing Goal Independent Toilet Transfer Goal Independent Shower Transfer Goal Independent Days to Meet Goals 20 Frequency of Treatment Frequency Of Treatment Once a Day Treatment Plan OT Treatment Plan ADL Training,Functional Mobility,Patient/Family Education,Discharge Planning Discharge Recommendations OT Discharge Recommendations SNF Rehab Transportation Needs at Discharge Wheelchair/Cabulance
[2022-03-22] MEDS: ACETAMINOPHEN 325 MG TABLET 650 MG PO (09:30)
[2022-03-22 09:52] VITALS: BP 123/70; PULSE 82
[2022-03-22] MEDS: FERROUS SULFATE 325 MG TABLET PO (09:52)
[2022-03-22] MEDS: AMLODIPINE 5 MG TABLET 10 MG PO (09:52)
[2022-03-22] MEDS: LOSARTAN 50 MG TABLET 100 MG PO (09:52)
[2022-03-22 10:37] LABS: COVID19 -Nasal RAPID Negative (Negative)
--- NOTE | 2022-03-22 10:45 | PT.IPTN ---
Current Diagnoses Urinary tract infection, site not specified (03/19/22) Physical Therapy Treatment Note M2 PT-IP Current Condition Start: 03/20/22 12:52 Freq: NEEDED Status: Discharge Protocol: Document 03/22/22 10:30 [facility] (Rec: 03/23/22 11:01 [facility] [id number]) Physical Therapy Current Condition Current Condition Evaluation Date 03/20/22 Treatment Diagnosis UTI; YELITZA; difficulty in walking Onset Date 03/19/22 M3 PT-IP Subjective Start: 03/20/22 12:52 Freq: NEEDED Status: Discharge Protocol: Document 03/22/22 10:30 [facility] (Rec: 03/23/22 11:01 [facility] [id number]) Subjective Physical Therapy Visit Type Type Treatment Note Visit Start Time 10:30 Visit Stop Time 10:45 Total Visit Minutes 15 Notes Nephew was in room when walked by earlier but left before arrived for tx. Number of BROOM STITCHER Visits 2 Physical Therapy Visit Comments Patient Comments Pt agreeable to working with therapy. Patient Goals Pt agreeable to going to SNF at 11am scheduled to get stronger. Therapy Pain Assessment Pain Present Pain Present Denied Pain M4 PT-IP Mobility and Gait Start: 03/20/22 12:52 Freq: NEEDED Status: Discharge Protocol: Document 03/22/22 10:30 [facility] (Rec: 03/23/22 11:01 [facility] [id number]) PT-Transfer Assessment Sit to and From Stand Sit to and from Stand Contact Guard Assistance, Minimal Assistance,1 Person Assistance,Use of Upper Extremities Equipment Transfer Assistive Device Gait Belt,Front Wheeled Walker Orthotic/Prosthetic Devices or Brace: Yes Transfers Transfer Destination Chair Transfer Technique pt ambulated w/FWW Transfer Ability Level of Assist Contact Guard Assistance, Minimal Assistance,1 Person Assistance,Use of Upper Extremities Comments Mobility Comments Pt seated in chair when arrived. Cued scoot to EOChair sBA, STS cued push from chair arms CG/Min A with cues forward wt shift with increased ROSALBA for improved stability. Pt increased gait around room and back to chair w/ FWW, cued for proximity to FWW, increase to WBOS and foot clearance, demonstrates semi tandem/ almost scissor step during turns around end bed, lateral trunk lean R>L Min A for stability and occasional FWW repositioning. Max cues for centering and full pivot with FWW/ support needed positioning while back steppiing fully legs touch chair, pt tends to want leave FWW off to side, Min A. Safety cues reach back slow descent sit chair, Min A. Pt had call light/ chair alarm donned and needs in reach before left. Gait Assessment Gait Gait Assistance Required: Contact Guard Assist,Minimum Assistance,1 Person Assist Distance (Feet) 30 Able to Maintain Weight Bearing Status Yes During Gait Assistive Devices Assistive Device Gait Belt,Front Wheeled Walker Orthotic/Prosthetic Devices or Brace: Yes Gait Deviations General Gait Pattern Ataxic,Decreased Stride Length ,Decreased Feet Clearance, Flexed Trunk,Lateral Trunk Lean,Narrow Based Gait,Step-to Gait Factors Limiting Gait Function Factors Limiting Gait Function Decreased Activity Tolerance, Decreased Strength,Difficulty Following Directions,Poor Balance,Poor Safety Awareness Comments Gait Comments see mobility comments Stair Climbing Assessment Comments Stair Climbing Comments no stairs need to assess. PT-Balance Assessment Sitting Balance and Reactions Static Sitting Balance Ability Good Dynamic Sitting Balance Ability Fair Standing Balance and Reactions Static Standing Balance Ability Fair Dynamic Standing Balance Ability Poor Device Used FWW M5 PT-IP Objective Assessments Start: 03/20/22 12:52 Freq: NEEDED Status: Discharge Protocol: Document 03/20/22 10:50 [facility] (Rec: 03/20/22 13:02 [facility] [id number]) Orientation Orientation/Cognition Level of Alertness Alert Orientation Name,Place,Situation Language Function Ability Hard of Hearing Safety Awareness Decreased Safety Awareness Gross Range of Motion Lower Extremity ROM Assessment Within Functional Limits Strength Lower Extremity Strength Assessment Bilaterally Impaired Hip 3-/5 Knee 3-/5 Sensation Assessment Sensation Gross Sensation WNL Muscle Tone Muscle Tone WNL Yes M6 PT-IP Treatment Start: 03/20/22 12:52 Freq: NEEDED Status: Discharge Protocol: Document 03/22/22 10:30 [facility] (Rec: 03/23/22 11:01 [facility] [id number]) Physical Therapy Treatment Education Education Provided Safety M7 PT-IP Assessment and Plan Start: 03/20/22 12:52 Freq: NEEDED Status: Discharge Protocol: Document 03/22/22 10:30 [facility] (Rec: 03/23/22 11:01 [facility] [id number]) PT Summary Assessment and Plan Potential Rehabilitation Potential Fair Status of Condition at Evaluation Evolving Summary Impairments Pain,ROM,Strength,Balance, Coordination,Sensation,Tone, Cognition,Bed Mobility, Transfers,Gait,Activity Tolerance Progress Towards Goals Progressing Toward Goals,Slow Progress due to Activity Tolerance,Slow Progress - Other Assessment Summary Pt requires CG- Min A x1 w/ FWW for all mobility trunk stability support, demonstrates lateral trunk lean during turns w/ FWW, mod/ max cues for safety throughout mobility. Pt will need SNF for progression in functional mobility. Goals Bed Mobility Goal Independent Transfer Goal Minimal Assistance,Front Wheeled Walker Gait Goal Minimal Assistance,Front Wheel Walker Gait Distance 50 Other Goals improve transfers and ambulation using FWW SBA 150 ft Frequency of Treatment Frequency Of Treatment Once a Day Treatment Plan Physical Therapy Treatment Plan Bed Mobility Training,Transfer Training,Gait Training, Therapeutic Exercise,Balance Retraining,Discharge Planning, Hot or Cold Pack,Neuromuscular Re-ed,Coordination Retraining ,Manual Therapy Other Recommendations and Next Treatment transfers, gait w/ FWW, bed Focus mob. Precautions Other Precautions falls Recommendations To Nursing Amount of Assist Needed 1 Person Assist Discharge Recommendations PT Discharge Recommendations SNF Rehab Transportation Needs at Discharge Wheelchair/Cabulance
--- NOTE | 2022-03-22 10:59 | PT-IP ANOTE ---
Attempted to see pt 1056, already working with OT. Will attempt to get back to see again prior to patient discharge.
--- NOTE | 2022-03-22 11:21 | OT.IP.TRT ---
Current Diagnoses Urinary tract infection, site not specified (03/19/22) Occupational Therapy Treatment Note M2 OT-IP Current Condition Start: 03/20/22 11:29 Freq: Status: Discharge Protocol: Document 03/20/22 10:53 [facility] (Rec: 03/20/22 11:49 [facility] [id number]) Occupational Therapy Current Condition Current Condition Evaluation Date 03/20/22 Treatment Diagnosis Sepsis, UTI, decreased mobility Diagnosis Onset Date 03/19/22 M3 OT- IP Subjective and Pain Start: 03/20/22 11:29 Freq: Status: Active Protocol: Document 03/22/22 11:22 [facility] (Rec: 03/22/22 11:31 [facility] [id number]) OT- Subjective Occupational Therapy Visit Type Type Treatment Note Visit Start Time 10:50 Visit Stop Time 11:21 Total Visit Minutes 31 Occupational Therapy Visit Comments Patient Comments Pt agreed to shower. Patient/Caregiver Goals To get better so able to go home. OT Pain Assessment Pain When Pain Assessed At Rest Pain Present Pain Present Denied Pain M4 OT- IP ADL's Start: 03/20/22 11:29 Freq: Status: Active Protocol: Document 03/22/22 11:22 [facility] (Rec: 03/22/22 11:31 [facility] [id number]) OT ADL-Grooming Comments OT Grooming Comments Pt states did prior. OT ADL-Oral Care Comments Oral Care Comments Pt states did prior. OT ADL-Dressing General Eval Lower Body Dressing Ability Minimal Assistance Comments OT Dressing Comments Assist to help straighten socks on his feet. OT ADL-Toileting Comments OT Toileting Comments Pt has curtis in and states has been incontinent. OT ADL-Bathing Bathing Type Bathing Type Shower General Evaluation Bathing Ability Moderate Assistance Areas Needing Assistance Wash/Dry Upper Body,Wash/Dry Perineal Area Comments OT Bathing Comments Pt able to shower while seated on shower chair and needing assist for his back and pericare needs for thoroughness. M5 OT- IP IADL's Start: 03/20/22 11:29 Freq: Status: Discharge Protocol: Document 03/20/22 10:53 [facility] (Rec: 03/20/22 11:49 [facility] [id number]) OT-Instrumental Activities of Daily Living Home Safety Awareness Ability to Problem Solve Emergency Able to Problem Solve Situations Home Safety Comments Pt needing increased time to figure out home safety questions. Medication Management Medication Management Comments At this time pt thinking a little more slowly at this time and would benefit from supervision. Money Management Money Management Comments At this time pt thinking a little more slowly at this time and would benefit from supervision. Meal Preparation Meal Preparation Comments Pt will need assist at this time. Pediatric Pathologist Pediatric Pathologist Comments Pt will need assist at this time. Driving Driving Concerns Identified Regarding Safety M6 OT- IP Functional Cognition Start: 03/20/22 11:29 Freq: Status: Active Protocol: Document 03/22/22 11:22 [facility] (Rec: 03/22/22 11:31 [facility] [id number]) Cognitive Factors Limiting Selfcare Function Cognitive Comments Cognitive Assessment Comments Pt able to follow and sequence commands for ADl and mobility needs. M7 OT- IP Mobility and Balance Start: 03/20/22 11:29 Freq: Status: Active Protocol: Document 03/22/22 11:22 [facility] (Rec: 03/22/22 11:31 [facility] [id number]) OT-Transfer Assessment Sit to and From Stand Sit to and from Stand Contact Guard Assistance Transfers Transfer Ability Contact Guard Assistance, Minimal Assistance Technique Transfer Destination Chair,Shower Stall Transfer Technique Stand Step Pivot Devices Transfer Assistive Devices Gait Belt,Front Wheeled Walker Orthotic/Prosthetic Devices or Brace: Yes Comments Mobility Comments Pt able to stand with CGA, pt is a bit unsteady on his feet and needing assist for steadying as his feet are very ataxic. Pt also needing vc to be sure to straighten his legs out. Pt heavily relies on his arms on the FWW for walking. OT- Balance Assessment Sitting Balance and Reactions Static Sitting Balance Ability Good Dynamic Sitting Balance Ability Good Standing Balance and Reactions Static Standing Balance Ability Fair Dynamic Standing Balance Ability Poor M8 OT- IP Objective Assessments Start: 03/20/22 11:29 Freq: Status: Active Protocol: Document 03/20/22 10:53 [facility] (Rec: 03/20/22 11:49 [facility] [id number]) OT Gross Range of Motion Upper Extremity Range of Motion Assessment Within Functional Limits OT Strength Upper Extremity Strength Assessment Within Functional Limits OT- Coordination Assessment Upper Extremity Finger to Nose Test Right UE Impaired Comments Coordination Comments right hand slightly off for finger to nose OT-Muscle Tone Assessment Muscle Tone WNL Yes M9 OT- IP Assessment and Plan Start: 03/20/22 11:29 Freq: Status: Active Protocol: Document 03/22/22 11:22 [facility] (Rec: 03/22/22 11:31 [facility] [id number]) OT Summary Assessment and Plan Potential Rehabilitation Potential Good Analytic Complexity at Evaluation Moderate Summary OT Impairments Strength,Balance,Functional Mobility,Dressing,Toileting, Bathing,Toilet Transfers, Shower Transfers,Activity Tolerance Progress Towards Goals Progressing Toward Goals Assessment Summary Pt going to skilled rehab today. Pt able to tolerate showering today and just needing assist for his back and thoroughness for pericare needs. Goals Self-Feeding Goal Independent Grooming Goal Independent Dressing Goal Independent Toileting Goal Independent Bathing Goal Independent Toilet Transfer Goal Independent Shower Transfer Goal Independent Days to Meet Goals 20 Frequency of Treatment Frequency Of Treatment Once a Day Treatment Plan OT Treatment Plan ADL Training,Functional Mobility,Patient/Family Education,Discharge Planning Discharge Recommendations OT Discharge Recommendations SNF Rehab Transportation Needs at Discharge Wheelchair/Cabulance
--- NOTE | 2022-03-22 11:45 | PT.IPTN ---
Current Diagnoses Urinary tract infection, site not specified (03/19/22) Physical Therapy Treatment Note M2 PT-IP Current Condition Start: 03/20/22 12:52 Freq: NEEDED Status: Discharge Protocol: Document 03/22/22 11:30 SP (Rec: 03/23/22 11:01 SP [id number]) Physical Therapy Current Condition Current Condition Evaluation Date 03/20/22 Treatment Diagnosis UTI; YELITZA; difficulty in walking Onset Date 03/19/22 M3 PT-IP Subjective Start: 03/20/22 12:52 Freq: NEEDED Status: Discharge Protocol: Document 03/22/22 11:30 SP (Rec: 03/23/22 11:01 SP [id number]) Subjective Physical Therapy Visit Type Type Treatment Note Visit Start Time 11:30 Visit Stop Time 11:45 Total Visit Minutes 15 Notes Nephew was in room when walked by earlier but left before arrived for tx. Number of BRACELET FORMER Visits 2 Physical Therapy Visit Comments Patient Comments Pt agreeable to working with therapy. Patient Goals Pt agreeable to going to SNF at 11am scheduled to get stronger. Therapy Pain Assessment Pain Present Pain Present Denied Pain M4 PT-IP Mobility and Gait Start: 03/20/22 12:52 Freq: NEEDED Status: Discharge Protocol: Document 03/22/22 11:30 SP (Rec: 03/23/22 11:01 SP [id number]) PT-Transfer Assessment Sit to and From Stand Sit to and from Stand Contact Guard Assistance, Minimal Assistance,1 Person Assistance,Use of Upper Extremities Equipment Transfer Assistive Device Gait Belt,Front Wheeled Walker Orthotic/Prosthetic Devices or Brace: Yes Transfers Transfer Destination Chair Transfer Technique pt ambulated w/FWW Transfer Ability Level of Assist Contact Guard Assistance, Minimal Assistance,1 Person Assistance,Use of Upper Extremities Comments Mobility Comments Pt seated in chair when arrived. Cued scoot to EOChair sBA, STS cued push from chair arms CG/Min A with cues forward wt shift with increased ROSALBA for improved stability. Pt increased gait around room and back to chair w/ FWW, cued for proximity to FWW, increase to WBOS and foot clearance, demonstrates semi tandem/ almost scissor step during turns around end bed, lateral trunk lean R>L Min A for stability and occasional FWW repositioning. Max cues for centering and full pivot with FWW/ support needed positioning while back steppiing fully legs touch chair, pt tends to want leave FWW off to side, Min A. Safety cues reach back slow descent sit chair, Min A. Pt had call light/ chair alarm donned and needs in reach before left. Gait Assessment Gait Gait Assistance Required: Contact Guard Assist,Minimum Assistance,1 Person Assist Distance (Feet) 30 Able to Maintain Weight Bearing Status Yes During Gait Assistive Devices Assistive Device Gait Belt,Front Wheeled Walker Orthotic/Prosthetic Devices or Brace: Yes Gait Deviations General Gait Pattern Ataxic,Decreased Stride Length ,Decreased Feet Clearance, Flexed Trunk,Lateral Trunk Lean,Narrow Based Gait,Step-to Gait Factors Limiting Gait Function Factors Limiting Gait Function Decreased Activity Tolerance, Decreased Strength,Difficulty Following Directions,Poor Balance,Poor Safety Awareness Comments Gait Comments see mobility comments Stair Climbing Assessment Comments Stair Climbing Comments no stairs need to assess. PT-Balance Assessment Sitting Balance and Reactions Static Sitting Balance Ability Good Dynamic Sitting Balance Ability Fair Standing Balance and Reactions Static Standing Balance Ability Fair Dynamic Standing Balance Ability Poor Device Used FWW M5 PT-IP Objective Assessments Start: 03/20/22 12:52 Freq: NEEDED Status: Discharge Protocol: Document 03/20/22 10:50 AB (Rec: 03/20/22 13:02 AB [id number]) Orientation Orientation/Cognition Level of Alertness Alert Orientation Name,Place,Situation Language Function Ability Hard of Hearing Safety Awareness Decreased Safety Awareness Gross Range of Motion Lower Extremity ROM Assessment Within Functional Limits Strength Lower Extremity Strength Assessment Bilaterally Impaired Hip 3-/5 Knee 3-/5 Sensation Assessment Sensation Gross Sensation WNL Muscle Tone Muscle Tone WNL Yes M6 PT-IP Treatment Start: 03/20/22 12:52 Freq: NEEDED Status: Discharge Protocol: Document 03/22/22 10:30 SP (Rec: 03/23/22 11:01 SP [id number]) Physical Therapy Treatment Education Education Provided Safety M7 PT-IP Assessment and Plan Start: 03/20/22 12:52 Freq: NEEDED Status: Discharge Protocol: Document 03/22/22 11:30 SP (Rec: 03/23/22 11:01 SP [id number]) PT Summary Assessment and Plan Potential Rehabilitation Potential Fair Status of Condition at Evaluation Evolving Summary Impairments Pain,ROM,Strength,Balance, Coordination,Sensation,Tone, Cognition,Bed Mobility, Transfers,Gait,Activity Tolerance Progress Towards Goals Progressing Toward Goals,Slow Progress due to Activity Tolerance,Slow Progress - Other Assessment Summary Pt requires CG- Min A x1 w/ FWW for all mobility trunk stability support, demonstrates lateral trunk lean during turns w/ FWW, mod/ max cues for safety throughout mobility. Pt will need SNF for progression in functional mobility. Goals Bed Mobility Goal Independent Transfer Goal Minimal Assistance,Front Wheeled Walker Gait Goal Minimal Assistance,Front Wheel Walker Gait Distance 50 Other Goals improve transfers and ambulation using FWW SBA 150 ft Frequency of Treatment Frequency Of Treatment Once a Day Treatment Plan Physical Therapy Treatment Plan Bed Mobility Training,Transfer Training,Gait Training, Therapeutic Exercise,Balance Retraining,Discharge Planning, Hot or Cold Pack,Neuromuscular Re-ed,Coordination Retraining ,Manual Therapy Other Recommendations and Next Treatment transfers, gait w/ FWW, bed Focus mob. Precautions Other Precautions falls Recommendations To Nursing Amount of Assist Needed 1 Person Assist Discharge Recommendations PT Discharge Recommendations SNF Rehab Transportation Needs at Discharge Wheelchair/Cabulance
--- NOTE | 2022-03-22 12:32 | PC.NURSE ---
Pt is A&Ox3, very QUILEUTE (with hearing aids). He is cleaned of incontinent stool this a.m. and care given for excoriation to buttocks. Bains in place draining adequate clear, yellow, urine. He has a good appetite this a.m. and VSS on RA. He calls appropriately for assistance. He verbalizes acknowledgement and agreement for discharge to [facility], before going home to [facility]. MD aCrbajal at bedside reviewing results with patient and plan of care.His nephew visits this afternoon and is very supportive, offering encouragement to patient. Report is called to Vibha at [facility], and transporter arrives to transport patient with packet and all of his belongings at approximately 1235 to transport pt via w/ch to van over to [facility].
== END 2022-03-22 12:45 | DRG 699 ==
LOC: ED 10:40 → AC 13:51
PROVIDERS: Family Medicine; Admitting Provider Family Medicine; Emergency Provider Emergency Medicine; Family Provider Internal Medicine; PCP Internal Medicine; Referring Provider Emergency Medicine; Visit Provider Family Medicine
DX: T83.518A Infection and inflammatory reaction due to other urinary catheter, initial encounter (principal); N17.9 Acute kidney failure, unspecified; N39.0 Urinary tract infection, site not specified; Z16.11 Resistance to penicillins; I10 Essential (primary) hypertension; D50.9 Iron deficiency anemia, unspecified; B96.1 Klebsiella pneumoniae [K. pneumoniae] as the cause of diseases classified elsewhere; B96.20 Unspecified Escherichia coli [E. coli] as the cause of diseases classified elsewhere; N31.9 Neuromuscular dysfunction of bladder, unspecified; N40.0 Benign prostatic hyperplasia without lower urinary tract symptoms; E78.2 Mixed hyperlipidemia; Z87.891 Personal history of nicotine dependence; Z20.822 Contact with and (suspected) exposure to COVID-19; Z23 Encounter for immunization
CPT/HCPCS: 0241U; 36415; 36600; 70450; 71045; 80048; 80053; 81015; 82550; 82553; 82728; 82805; 83540; 83550; 83605; 83690; 84145; 85007; 85025; 85610; 85730; 87040; 87077; 87086; 87186; 87635; 90471; 90662; 93005; 96365; 97116; 97162; 97166; 97530; 97535; 99222; 99232; 99238; 99284; 99285; C9803; J0696

== ENCOUNTER → 2022-03-28 09:50 | Outpatient (ROUT) | payer OTHER, SELFPAY ==
[2022-03-19 14:00] VITALS: BMI 21.3
[2022-03-28 11:16] LABS: Clostridium Difficile Tox PCR Positive for C. diff (Negative)
[2022-03-29 15:12] LABS: C difficie Toxins A and B, EIA Positive (Negative)
== END ==
PROVIDERS: Family Provider Internal Medicine; PCP Internal Medicine; Visit Provider Nurse Practitioner Family
DX: Z11.2 Encounter for screening for other bacterial diseases (principal)
CPT/HCPCS: 87324; 87493

== ENCOUNTER → 2022-04-24 11:08 | Outpatient (CLI) | payer OTHER, SELFPAY ==
[2022-03-19 14:00] VITALS: BMI 21.3
[2022-04-24 11:53] LABS: Add Manual Diff / Slide Review NO; Basophils Absolute Auto 0 /uL (0-100); Basophils Percent Auto 0.5 % (0-2); Eosinophils Absolute Auto 300 /uL (0-450); Eosinophils Percent Auto 2.9 % (2-4); Hematocrit 36.2 % (41-53); Lymphocytes Absolute Auto 1000 /uL (1100-4500); Lymphocytes Percent Auto 9.6 % (25-40); Mean Corpuscular HGB Conc 33.2 % (30-36); Mean Corpuscular Hemoglobin 28.5 PG (26-34); Mean Corpuscular Volume 85.8 fL (80-100); Monocytes Absolute Auto 800 /uL (0-900); Monocytes Percent Auto 7.9 % (3-14); Neutrophils Absolute Auto 7900 /uL (1500-7000); Neutrophils Percent Auto 79.1 % (50-75); Platelet Count 354 X10^3/uL (150-400); Red Blood Cell Count 4.22 X10^6/uL (4.5-5.9); Red Cell Distribution Width 14.9 % (11.6-14.8)
[2022-04-24 12:09] LABS: HEMOLYSIS < 15 (0-50); Iron 54 ug/dL (49-181)
[2022-04-24 12:12] LABS: Alanine Aminotransferase 15 IU/L (<50); Albumin Globulin Ratio 1.1 (1.0-2.8); Alkaline Phosphatase 98 U/L (38-126); Aspartate Aminotransferase 21 IU/L (17-59); BUN Creatinine Ratio 23.8 (6-22); Bilirubin Total 0.3 mg/dL (0.2-1.3); Blood Urea Nitrogen 24 mg/dL (9-20); Calcium 8.8 mg/dL (8.4-10.2); Carbon Dioxide 24 mmol/L (22-32); Chloride 101 mmol/L (98-107); Estimated Glomerular Filt Rate > 60 mL/min (>60); Globulin 3.7 g/dL (1.7-4.1); Glucose 91 mg/dL (80-110); HEMOLYSIS < 15 (0-50); Potassium 4.5 mmol/L (3.4-5.1); Sodium 136 mmol/L (137-145); Total Protein 7.7 g/dL (6.3-8.2)
[2022-04-24 12:16] LABS: Transferrin 185 mg/dL (206-381)
[2022-04-25 14:59] LABS: Percent Iron Saturation 21 % (20-50); Total Iron Binding Capacity 252 ug/dL (261-462)
== END ==
PROVIDERS: Family Provider Internal Medicine; PCP Internal Medicine; Referring Provider Internal Medicine; Visit Provider Internal Medicine
DX: D50.9 Iron deficiency anemia, unspecified (principal); E78.2 Mixed hyperlipidemia; I10 Essential (primary) hypertension
CPT/HCPCS: 36415; 80053; 83540; 83550; 85025

== ENCOUNTER → 2022-08-28 10:11 | Outpatient (CLI) | payer OTHER, SELFPAY ==
[2022-03-19 14:00] VITALS: BMI 21.3
[2022-08-28 11:18] LABS: Clostridium Difficile Tox PCR Positive for C. diff (Negative)
[2022-08-28 12:04] LABS: Occult Blood 1 Negative (Negative)
[2022-08-30 15:40] LABS: C difficie Toxins A and B, EIA Negative (Negative)
== END ==
PROVIDERS: Family Provider Internal Medicine; PCP Internal Medicine; Referring Provider Nurse Practitioner Family; Visit Provider Nurse Practitioner Family
DX: R19.7 Diarrhea, unspecified (principal)
CPT/HCPCS: 82270; 87045; 87324; 87329; 87493; 87899

== ENCOUNTER 2022-08-29 09:46 | Emergency (ER) | payer OTHER, SELFPAY ==
[2022-03-19 14:00] VITALS: BMI 21.3
[2022-08-29 09:51] VITALS: BP 160/82; PULSE 91; RESP 15; TEMP 36.6; O2SAT 99; BMI 22.9
[2022-08-29 10:21] LABS: Add Manual Diff / Slide Review NO; Basophils Absolute Auto 0 /uL (0-100); Eosinophils Absolute Auto 200 /uL (0-450); Eosinophils Percent Auto 4.3 % (2-4); Hematocrit 42.9 % (41-53); Hemoglobin 14.9 g/dL (13.5-17.5); Lymphocytes Absolute Auto 1100 /uL (1100-4500); Lymphocytes Percent Auto 23.5 % (25-40); Mean Corpuscular HGB Conc 34.6 % (30-36); Mean Corpuscular Hemoglobin 28.6 PG (26-34); Mean Corpuscular Volume 82.7 fL (80-100); Monocytes Absolute Auto 400 /uL (0-900); Monocytes Percent Auto 8.5 % (3-14); Neutrophils Absolute Auto 2800 /uL (1500-7000); Neutrophils Percent Auto 62.7 % (50-75); Platelet Count 196 X10^3/uL (150-400); Red Blood Cell Count 5.19 X10^6/uL (4.5-5.9); Red Cell Distribution Width 13.5 % (11.6-14.8); White Blood Cell Count 4.5 X10^3/uL (4.5-11.0)
[2022-08-29 10:32] LABS: INR 1.1 (0.9-1.3)
[2022-08-29 10:35] LABS: PTT Partial Thromboplastin Tim 29 SECONDS (26-36)
[2022-08-29 10:38] LABS: Alanine Aminotransferase 16 IU/L (<50); Albumin 4.5 g/dL (3.5-5.0); Albumin Globulin Ratio 1.5 (1.0-2.8); Alkaline Phosphatase 75 U/L (38-126); Aspartate Aminotransferase 23 IU/L (17-59); BUN Creatinine Ratio 20.2 (6-22); Bilirubin Total 0.6 mg/dL (0.2-1.3); Blood Urea Nitrogen 24 mg/dL (9-20); Calcium 9.2 mg/dL (8.4-10.2); Carbon Dioxide 23 mmol/L (22-32); Chloride 103 mmol/L (98-107); Estimated Glomerular Filt Rate > 60 mL/min (>60); Glucose 97 mg/dL (80-110); HEMOLYSIS < 15 (0-50); Potassium 4.4 mmol/L (3.4-5.1); Sodium 135 mmol/L (137-145); Total Protein 7.5 g/dL (6.3-8.2)
[2022-08-29] MEDS: PANTOPRAZOLE 40 MG VIAL 80 MG IV (10:53)
[2022-08-29 11:07] VITALS: PULSE 55; O2SAT 99
[2022-08-29 11:30] VITALS: BP 119/56; PULSE 50; O2SAT 99
[2022-08-29 12:00] VITALS: BP 126/62; PULSE 53; O2SAT 99
--- NOTE | 2022-08-29 12:11 | ED_ITS ---
HPI - GI Bleed General Chief complaint: GI Bleed Stated complaint: sent by some kind of infection Time Seen by Provider: 08/29/22 12:11 Source: patient Mode of arrival: Ambulatory History of Present Illness HPI Narrative: This is a 77-year-old male with history of hypertension, dyslipidemia, indwelling urinary catheter presents from walk-in clinic for complaint of black stools and C diff infection. Patient states he is had 3 weeks of diarrhea that has varied in frequency some days he will have very little some days he will have a lot. He denies fevers or chills. No nausea or vomiting. No chest pain or shortness of breath. He has been a little bit fatigued. Patient denies abdominal pain but has some discomfort but describes it as less than crampy. He denies urinary changes but does have an indwelling catheter. Patient states he did notice some black stools intermittently, he states he was taking Pepto- Bismol but isn't sure of the timing between the 2. Patient was called by the walk-in clinic he had testing for C diff a week ago and they were following up with his results. Patient told him back his black stools and was referred to the emergency department. He notes no recent antibiotics last several months he states he was hospitalized in March for UTI but does not think he is had antibiotics since then. He is not had prior infections. He denies any surgeries. No known drug allergies. No tobacco, alcohol or illicit. Dr. Hamm is his primary care. Related Data Home Medications Medication Instructions Recorded Confirmed polyethylene glycol 3350 17 17 g PO DAILY PRN 06/05/22 06/05/22 gram/dose oral powder (Miralax) Previous Rx's Medication Instructions Recorded losartan 100 mg tablet 100 mg PO DAILY #90 tabs 01/26/20 minoxidil 10 mg tablet 10 mg PO QAM #90 tabs 01/26/20 amlodipine 10 mg tablet 10 mg PO DAILY #90 tabs 01/28/20 atorvastatin 10 mg tablet 10 mg PO BEDTIME #90 tabs 01/28/20 ferrous sulfate 325 mg (65 mg 325 mg PO DAILY #30 tabs 03/22/22 iron) tablet fidaxomicin 200 mg tablet 200 mg PO Q12H 10 days #20 tabs 08/29/22 Allergies Allergy/AdvReac Type Severity Reaction Status Date / Time No Known Drug Allergies Allergy Verified 08/29/22 09:51 Review of Systems Review of Systems ROS Unobtainable: All systems reviewed & are unremarkable except as noted in HPI and below Patient History Medical History Atonic bladder (~08/2019) BPH w urinary obs/LUTS Elevated PSA Essential hypertension (01/11/15) FH: RANDI-BSO (total abdominal hysterectomy and bilateral salpingo-oophorectomy) Flaccid neurogenic bladder Gout Mixed hyperlipidemia Right inguinal hernia Stenosis of cervical spine with myelopathy Surgical History Status post cervical arthrodesis (~08/2019) Social History household members: family and none Smoking Status: Former smoker alcohol intake: current Smoking Status: Former smoker alcohol intake frequency: holidays/special occasions only Substance Use Type: does not use Exam Narrative Exam Narrative: GENERAL: Alert and oriented x three, male in mild distress. HEENT: Head normocephalic, atraumatic, EOMI, pupils reactive, face symmetric, moist mucous membranes NECK: Supple, full range of motion CARDIOVASCULAR: Regular rate and rhythm without murmurs, rubs or gallops. RESPIRATORY: Breath sounds equal bilaterally, no wheezes rales or rhonchi. ABDOMEN: Soft, nontender. Normoactive bowel sounds all 4 quadrants. No guarding or rebound, rigidity, no mass, nondistended. On BRISEYDA patient is negative for stool occult, no mass, very small specks of stool is light brown in color. : No CVA tenderness EXTREMITIES: Normal range of motion, no clubbing or edema. Neurovascularly intact NEUROLOGICAL: Cranial nerves II through XII grossly intact. Moving all extremit ies SKIN: Warm, dry, no petechiae, no rashes or lesions. Initial Vital Signs Initial Vital Signs: Vital Signs Temperature 97.8 F 08/29/22 09:51 Pulse Rate 91 H 08/29/22 09:51 Respiratory Rate 15 08/29/22 09:51 Blood Pressure 160/82 H 08/29/22 09:51 Pulse Oximetry 99 08/29/22 09:51 Oxygen Delivery Method Room Air 08/29/22 09:51 Course Orders Ordered: ED Orders 08/29/22 10:09 Complete Blood Count AUTO DIFF Stat Comprehensive Metabolic Panel Stat PTT Partial Thromboplastin Arthur Stat Prothrombin Time INR Stat 08/29/22 12:03 EKG-12 Lead Stat Discontinued Medications Pantoprazole Sodium (Pantoprazole 40 Mg Vial) 80 mg IV NOW ONE Stop: 08/29/22 09:56 Last Admin: 08/29/22 10:53 Dose: 80 mg Documented By: AT Vital Signs Vital signs: Vital Signs - 8 hr 08/29/22 11:07 08/29/22 11:30 08/29/22 11:30 Pulse Rate 55 L 50 L Blood Pressure 119/56 L Pulse Oximetry 99 99 Oxygen Delivery Method Room Air 08/29/22 12:00 08/29/22 12:00 08/29/22 12:30 Pulse Rate 53 L Blood Pressure 126/62 128/63 Pulse Oximetry 99 Oxygen Delivery Method Room Air 08/29/22 12:30 Pulse Rate 62 Blood Pressure Pulse Oximetry 99 Oxygen Delivery Method Room Air MDM - GI Bleed Lab Data 08/29/22 10:09 08/29/22 10:09 Labs: Lab Results 08/29/22 08/29/22 08/29/22 Range/Units 10:09 10:09 10:09 WBC 4.5 (4.5-11.0) X10^3/uL RBC 5.19 (4.5-5.9) X10^6/uL Hgb 14.9 (13.5-17.5) g/dL Hct 42.9 (41-53) % MCV 82.7 (80-100) fL MCH 28.6 (26-34) PG MCHC 34.6 (30-36) % RDW 13.5 (11.6-14.8) % Plt Count 196 (150-400) X10^3/uL Neut % (Auto) 62.7 (50-75) % Lymph % (Auto) 23.5 L (25-40) % Storey % (Auto) 8.5 (3-14) % Eos % (Auto) 4.3 H (2-4) % Baso % (Auto) 1.0 (0-2) % Neut # (Auto) 2800 (3350-1930) /uL Lymph # (Auto) 1100 (6454-6039) /uL Storey # (Auto) 400 (0-900) /uL Eos # (Auto) 200 (0-450) /uL Baso # (Auto) 0 (0-100) /uL PT 13.0 H (10.1-12.7) SECONDS INR 1.1 (0.9-1.3) APTT 29 (26-36) SECONDS Sodium 135 L (137-145) mmol/L Potassium 4.4 (3.4-5.1) mmol/L Chloride 103 (98-107) mmol/L Carbon Dioxide 23 (22-32) mmol/L BUN 24 H (9-20) mg/dL Creatinine 1.19 (0.66-1.25) mg/dL Estimated GFR > 60 (>60) mL/min BUN/Creatinine Ratio 20.2 (6-22) Glucose 97 (80-110) mg/dL Calcium 9.2 (8.4-10.2) mg/dL Total Bilirubin 0.6 (0.2-1.3) mg/dL AST 23 (17-59) IU/L ALT 16 (<50) IU/L Alkaline Phosphatase 75 (38-126) U/L Total Protein 7.5 (6.3-8.2) g/dL Albumin 4.5 (3.5-5.0) g/dL Globulin 3.0 (1.7-4.1) g/dL Albumin/Globulin Ratio 1.5 (1.0-2.8) Point of Care Testing Stool Occult Blood Negative ECG Data Attestation: I personally reviewed and interpreted this ECG as follows: Interpretation: Sinus bradycardia rate of 50 PA 188 QRS of 144 QTC of 441. Right bundle-branch block. Patient has prior from 03/19/2022 right bundle-branch well. Is some nonspecific. MDM Narrative Medical decision making narrative: 77-year-old with frequent diarrhea that has been relatively controlled in complain of some black stools. No fevers, no other toxic or septic symptoms. Patient's blood pressure heart rate have so far been appropriate. Patient's labs show no leukocytosis, hemoglobin 14, platelets are normal at 96, negative coags, electrolytes, renal functions, LFTs are negative. Patient had C diff on tox PCR, EIA is pending but looks like he was positive in March of 2022. Reviewing patient's history do not see that he had treatment for his C diff he does not recall treatment. Discharge Plan Departure Patient Disposition: Home Clinical Impression: C. difficile diarrhea Instructions: Clostridioides (Clostridium) difficile Infection Activity Restrictions/Additional Instructions: Please follow-up with your physician for recheck. You have prior test from March of 2022 which showed C diff infection at that time, I am unsure if you were treated for this or if today's infection is a new infection. Take antibiotics until completely gone. Prescription sent to [facility] in [place] You can take probiotics afterwards or yogurt with live culture. Please return for fevers, new worsening abdominal back or flank pain, vomiting, increasing or worsening diarrhea, signs of dehydration persistent black or b loody stools or other new or concerning changes. Prescriptions: New fidaxomicin 200 mg tablet 200 mg PO Q12H 10 Days Qty: 20 0RF No Action losartan 100 mg tablet 100 mg PO DAILY Qty: 90 0RF minoxidil 10 mg tablet 10 mg PO QAM Qty: 90 0RF amlodipine 10 mg tablet 10 mg PO DAILY Qty: 90 0RF Rx Instructions: pt will need to be seen before next renewal atorvastatin 10 mg tablet 10 mg PO BEDTIME Qty: 90 0RF Rx Instructions: pt will need to be seen before next renewal polyethylene glycol 3350 [Miralax] 17 gram/dose powder 17 g PO DAILY PRN ferrous sulfate 325 mg (65 mg iron) Tablet 325 mg PO DAILY Qty: 30 0RF Referrals: Norberto Hamm MD [Primary Care Provider] - Stand Alone Forms: Patient Portal/API
[2022-08-29 12:30] VITALS: BP 128/63; PULSE 62; O2SAT 99
== END 2022-08-29 12:53 | disposition home or self-care (01) ==
PROVIDERS: Emergency Provider Emergency Medicine; Family Provider Internal Medicine; PCP Internal Medicine
DX: A04.72 Enterocolitis due to Clostridium difficile, not specified as recurrent (principal)
CPT/HCPCS: 36415; 80053; 82272; 85025; 85610; 85730; 93005; 93010; 96374; 99284; C9113

== ENCOUNTER → 2022-10-03 09:43 | Outpatient (CLI) | payer OTHER, SELFPAY ==
[2022-03-19 14:00] VITALS: BMI 21.3
[2022-10-03 16:11] LABS: Clostridium Difficile Tox PCR Negative for C. diff (Negative)
== END ==
PROVIDERS: Family Provider Internal Medicine; PCP Internal Medicine; Referring Provider Internal Medicine; Visit Provider Internal Medicine
DX: A04.72 Enterocolitis due to Clostridium difficile, not specified as recurrent (principal)
CPT/HCPCS: 87493

== ENCOUNTER → 2022-12-07 09:47 | Outpatient (CLI) | payer OTHER, SELFPAY ==
[2022-03-19 14:00] VITALS: BMI 21.3
[2022-12-07 11:20] LABS: Clostridium Difficile Tox PCR Negative for C. diff (Negative)
== END ==
PROVIDERS: Family Provider Internal Medicine; PCP Internal Medicine; Referring Provider Internal Medicine Gastroenterology; Visit Provider Internal Medicine Gastroenterology
DX: K52.9 Noninfective gastroenteritis and colitis, unspecified (principal)
CPT/HCPCS: 87493

== ENCOUNTER → 2023-02-11 10:21 | Outpatient (CLI) | payer OTHER, SELFPAY ==
[2022-03-19 14:00] VITALS: BMI 21.3
[2023-02-11 13:35] LABS: Alanine Aminotransferase 15 IU/L (<50); Albumin 4.3 g/dL (3.5-5.0); Albumin Globulin Ratio 1.3 (1.0-2.8); Alkaline Phosphatase 70 U/L (38-126); Aspartate Aminotransferase 27 IU/L (17-59); BUN Creatinine Ratio 30.4 (6-22); Bilirubin Total 0.5 mg/dL (0.2-1.3); Blood Urea Nitrogen 34 mg/dL (9-20); Calcium 9.7 mg/dL (8.4-10.2); Carbon Dioxide 20 mmol/L (22-32); Chloride 105 mmol/L (98-107); Estimated Glomerular Filt Rate > 60 mL/min (>60); Globulin 3.2 g/dL (1.7-4.1); Glucose 96 mg/dL (80-110); HEMOLYSIS 19 (0-50); Potassium 5.1 mmol/L (3.4-5.1); Sodium 135 mmol/L (137-145); Total Protein 7.5 g/dL (6.3-8.2)
== END ==
PROVIDERS: Family Provider Internal Medicine; PCP Internal Medicine; Referring Provider Internal Medicine; Visit Provider Internal Medicine
DX: I10 Essential (primary) hypertension (principal); E78.2 Mixed hyperlipidemia
CPT/HCPCS: 36415; 80053

== ENCOUNTER 2023-03-19 09:50 | Day surgery (SDC) | payer OTHER, SELFPAY ==
[2022-03-19 14:00] VITALS: BMI 21.3
[2023-03-13 15:23] VITALS: BMI 22.2
[2023-03-19] VITALS (7 sets, daily range): BP systolic 102–148; BP diastolic 58–78; PULSE 84–98; RESP 12–16; TEMP 36.4–37.1; O2SAT 95–99; BMI 21.5
[2023-03-19] MEDS: LACTATED RINGERS 1,000 ML 42 ML IV (10:22)
[2023-03-19] MEDS: ACETAMINOPHEN 325 MG TABLET 650 MG PO (10:24)
--- NOTE | 2023-03-19 11:01 | PM.PREOP ---
Pre-operative Note COVID-19 COVID-19 status: Not tested Interval Note History & Physical reviewed/Exam performed by Physician: Yes Changes to H&P: No ASA Class (for procedural sedation): II
[2023-03-19] MEDS: CEFAZOLIN 2 GM/100 ML PREMIX 100 ML IV (11:40)
--- NOTE | 2023-03-19 11:44 | SUR.OPER ---
Supine on padded OR bed, head on pillow, arms secured on padded arm boards at <90 degrees abduction, legs uncrossed, safety belt at thigh, tape over blanket over lower legs.
[2023-03-19] MEDS: BUPIVACAINE 0.5% (PF) 30 ML, EPINEPHrine 0.15 MG INJ (11:49)
--- NOTE | 2023-03-19 13:00 | P.OP_ITS ---
Operative Date/Time/Diagnoses Date of procedure: 03/19/23 Time of procedure: 13:00 Pre-op diagnosis: Right inguinal hernia Post-op diagnosis: same Procedure & Clinicians Procedure: Open right inguinal hernia repair with mesh Same procedure as scheduled: Yes Surgeon: Deshaun Kaba Anesthesia Type: General Operative Notes Procedure in detail: Preoperative antibiotic was administered. The patient was brought to the operating room and placed on the table in supine position general anesthesia was induced. The majority of the hernia was able to be manually reduced although there were stool rather impressive bulge in the right groin. The right groin was prepped and draped in the normal fashion and a time-out was performed. Roughly 10 mL of local anesthetic were injected into the skin and subcutaneous adipose tissue over the right groin. A 6 cm incision was made over the right inguinal canal. Dissection was carried down through the subcutaneous adipose tissue. We exposed the external oblique aponeurosis in the direction of the fibers. Additional local was injected deep to the aponeurosis. A 15 blade scalpel was used to jesse the external oblique aponeurosis. Metzenbaum scissors were used to carefully open the aponeurosis in the direction of the fibers taking care not to injure the underlying ilioinguinal nerve which was well seen and protected. We completely exposed the inguinal canal. There was a rather large indirect defect. The cord was dissected free from the inguinal ligament and floor of the inguinal canal and the external oblique aponeurosis was dissected off of the internal oblique taking care not to injure the hypogastric nerve. We encircled the cord with a Speedy drain for retraction. The sac was carefully dissected off the cord structures and reduced back into the abdomen. We then placed a polypropylene mesh against the floor of the inguinal canal. The mesh was secured with multiple interrupted 3-0 Prolene sutures to the pubic tubercle and shelving edge of the inguinal ligament as well as to the conjoint tendon medially. We overlapped the tails to recreate an internal ring and secured the medial tail to the inguinal ligament with additional sutures. We injected some more local into the fatty tissue in the in guinal canal and cord. Finally, we removed the [place] drain and closed the external oblique fascia with a running 3-0 Vicryl suture. Skin was closed with interrupted 3-0 Vicryl dermal sutures and a running 4 Monocryl subcuticular stitch. EBL 10 mL The patient was awakened and brought to recovery room. Post-operative Condition: stable Disposition: PACU
== END 2023-03-19 14:08 | disposition home or self-care (01) ==
PROVIDERS: Family Provider Internal Medicine; PCP Internal Medicine; Referring Provider Surgery; Visit Provider Surgery
PROC: (CPT 49505; principal; 2023-03-19 11:15)
DX: K40.90 Unilateral inguinal hernia, without obstruction or gangrene, not specified as recurrent (principal)
CPT/HCPCS: 49505; J0171; J0690; J2405; J2704; J3010

== ENCOUNTER → 2023-07-01 08:35 | Outpatient (CLI) | payer OTHER, SELFPAY ==
[2022-03-19 14:00] VITALS: BMI 21.3
--- NOTE | 2023-07-01 08:36 | DI.US.S_ITS ---
PROCEDURE: US SCROTUM INDICATIONS: RIGHT SCROTAL SWELLING, PAIN TECHNIQUE: Real-time scanning was performed of the scrotum and testicles, with image documentation. Color and pulse Doppler interrogation was performed of both testicles. COMPARISON: None. FINDINGS: Right: Testicle is normal in size at 4.2 x 2.6 x 3.0 cm, and homogenous in echotexture. Epididymis is normal in overall size and morphology. Small hydrocele. No varicocele. Overlying scrotal skin is normal in thickness. Left: Testicle is normal in size at 4.3 x 2.5 x 1.8 cm, and homogeneous in echotexture. Epididymis is normal in overall size and morphology. No hydrocele or varicoceles. Overlying scrotal skin is normal in thickness. Doppler: Increased vascularity within the right epididymis and right testicle. IMPRESSION: Epididymo-orchitis on the right. Small right-sided hydrocele. Dictated by: Jacky Herrera M.D. on 07/01/2023 at 9:43 Approved by: Jacky Herrera M.D. on 07/01/2023 at 9:45
== END ==
PROVIDERS: Family Provider Internal Medicine; PCP Internal Medicine; Referring Provider Internal Medicine; Visit Provider Internal Medicine
DX: N45.3 Epididymo-orchitis (principal); N43.3 Hydrocele, unspecified; N50.89 Other specified disorders of the male genital organs
CPT/HCPCS: 76870; 93975

== ENCOUNTER → 2023-09-18 10:33 | Outpatient (CLI) | payer OTHER, SELFPAY ==
[2022-03-19 14:00] VITALS: BMI 21.3
[2023-09-18 11:24] LABS: Appearance Urine UA CLEAR; Bilirubin Urine UA NEGATIVE (NEGATIVE); Color Urine UA YELLOW; Glucose Urine UA NEGATIVE (Negative); Ketones Urine UA NEGATIVE (NEGATIVE); Leukocyte Esterase Urine UA NEGATIVE (NEGATIVE); Nitrite Urine UA NEGATIVE (Negative); Occult Blood Urine UA 2+ (Negative); Protein Urine UA 2+ (Negative); Urobilinogen Urine UA 0.2 E.U./dL (0.2)
[2023-09-18 11:26] LABS: Bacteria Urine Occasional (0-1); Culture Indicated Urine Cult Not Indicated; RBC Urine 5-10/HPF (0-5/HPF); Squamous Epithelial Cell Urine 0-1 /HPF (0-5/HPF); Urine Volume 10mL (spun); WBC Urine 1-5/HPF (0-5/HPF)
== END ==
PROVIDERS: Family Provider Internal Medicine; PCP Internal Medicine; Visit Provider Specialist
DX: N40.1 Benign prostatic hyperplasia with lower urinary tract symptoms (principal); N13.8 Other obstructive and reflux uropathy; N31.2 Flaccid neuropathic bladder, not elsewhere classified
CPT/HCPCS: 81001; 81002; 99214

== ENCOUNTER → 2023-09-30 10:21 | Outpatient (CLI) | payer OTHER, SELFPAY ==
[2022-03-19 14:00] VITALS: BMI 21.3
--- NOTE | 2023-09-30 10:22 | DI.ECHO.S_ITS ---
[facility] : : [id number] : : [place] : : [id number] : : Phone: [phone] Echocardiogram Report + + :Name: BABAR KAT Study Date: 09/30/2023 Height: 70 in : :[facility] ReadingLocation: Weight: 165 lb : : Gender: Male BSA: 1.9 m2 : :: 1945 Age: 78 yrs BP: 141/79 mmHg: :Reason For Study: AORTIC VALVE STENOSIS : :Ordering Physician: KARSTEN, : :FARIBA Performed By: Jose Fisher : :Referring: FARIBA SERVIN : + + Interpretation Summary 1) Mildly increased left ventricular thickness (concentric) with normal size, normal wall motion, and normal systolic function (EF 60-65%). 2) Mildly enlarged right ventricle with normal function. 3) There is severe aortic stenosis (valve area 0.8cm2, mean gradient 53mmHg). 4) There is a trivial to small pericardial effusion noted. 5) Compared to the Echo done 01/15/2019, asortic stenosis has progressed from mild to severe on this study and pericardial effusion is present on this study. Procedure: A two-dimensional transthoracic echocardiogram with color flow and Doppler was performed. The study quality was technically adequate. Comparison is made with the echocardiogram of 01/15/2019. The patient was in sinus rhythm with heart rates between 84-98 bpm during the exam. Left Ventricle: The left ventricle is normal in size. There is mild concentric left ventricular hypertrophy. The ejection fraction is estimated to be 60-65%. Left ventricular systolic function appears normal without focal wall motion abnormalities. Diastolic parameters suggest a relaxation abnormality of the left ventricle, consistent with probable normal filling pressures. Right Ventricle: The right ventricle is mildly dilated. The right ventricular systolic function is normal. Atria: The left atrium is mildly dilated. Right atrial size is normal. The interatrial septum grossly appears intact with no obvious evidence for an atrial septal defect. Mitral Valve: The mitral valve is grossly normal. MAC. There is no mitral valve stenosis. There is trace mitral regurgitation. Aortic Valve: The aortic valve is trileaflet. The aortic valve is moderately calcified. There is severe aortic stenosis. The peak aortic velocity is 4.67 m/sec. The aortic valve mean gradient is 53.2 mmHg. No aortic regurgitation is present. Tricuspid Valve: The tricuspid valve is normal. There is no tricuspid stenosis. No tricuspid regurgitation. Pulmonic Valve: The pulmonic valve is not well visualized. There is no pulmonic valvular stenosis. There is no pulmonic valvular regurgitation. Great Vessels: The aortic root is normal size. The dimensions of the ascending aorta are normal. The inferior vena cava was not well visualized. Pericardium/ Pleura There is a trivial to small pericardial effusion noted. There is no pleural effusion. MMode/2D Measurements & Calculations LVIDd: 4.9 cm LVOT diam: 1.9 cm LVIDs: 3.4 cm Ao root diam: 3.6 cm FS: 31.1 % asc Aorta Diam: 3.4 cm IVSd: 1.4 cm Ao Arch Diam (Prox Trans): 2.4 cm LVPWd: 1.2 cm LV pinto. diameter/BSA (cm/m^2): 2.5 LV sys. diameter/BSA (cm/m^2): 1.8 LA A2 area: 22.9 cm2 RA long axis: 4.7 cm LA A4 area: 22.2 cm2 RA area: 17.4 cm2 LA length (vol): 7.3 cm RA vol: 54.9 ml LA vol: 58.9 ml RA : 28.5 ml/m2 LA vol index: 30.6 ml/m2 IVC diam: 2.4 cm RVD1 (basal): 4.1 cm RVD2 (mid): 3.3 cm TAPSE: 2.1 cm Doppler Measurements & Calculations Ao V2 max: 467.2 cm/sec LVOT Max Rocky: 122.6 cm/sec Ao V2 mean: 344.4 cm/sec LV V1 max P.0 mmHg Ao max P.3 mmHg LV V1 VTI: 26.3 cm Ao mean P.2 mmHg ELOY(I,D): 0.77 cm2 Ao V2 VTI: 96.6 cm ELOY(V,D): 0.75 cm2 sev ratio: 0.27 ELOY indexed to BSA (cm^2/m^2): 0.40 MV E max rocky: 80.5 cm/sec PA V2 max: 148.2 cm/sec MV A max rocky: 127.7 cm/sec PA V2 mean: 106.8 cm/sec MV E/A: 0.63 PA mean P.1 mmHg Med Peak E' Rocky: 4.1 cm/sec PA pr(Accel): 41.3 mmHg E/E' med: 19.6 Lat Peak E' Rocky: 4.5 cm/sec E/E' lat: 18.0 E/e' average: 18.8 MV dec time: 0.18 sec SV(LVOT): 74.8 ml Reading Physician:01:07 PM
== END ==
PROVIDERS: Family Provider Internal Medicine; PCP Internal Medicine; Referring Provider Internal Medicine Cardiovascular Disease; Visit Provider Internal Medicine Cardiovascular Disease
DX: I35.0 Nonrheumatic aortic (valve) stenosis (principal)
CPT/HCPCS: 93306

== ENCOUNTER → 2023-12-16 14:10 | Outpatient (CLI) | payer OTHER, SELFPAY ==
[2022-03-19 14:00] VITALS: BMI 21.3
[2023-12-16 14:54] LABS: Add Manual Diff / Slide Review NO; Basophils Absolute Auto 100 /uL (0-100); Basophils Percent Auto 0.9 % (0-2); Eosinophils Absolute Auto 100 /uL (0-450); Eosinophils Percent Auto 1.8 % (2-4); Hematocrit 41.3 % (41-53); Hemoglobin 13.9 g/dL (13.5-17.5); Lymphocytes Absolute Auto 1400 /uL (1100-4500); Lymphocytes Percent Auto 18.6 % (25-40); Mean Corpuscular HGB Conc 33.7 % (30-36); Mean Corpuscular Hemoglobin 28.9 PG (26-34); Mean Corpuscular Volume 85.6 fL (80-100); Monocytes Absolute Auto 600 /uL (0-900); Monocytes Percent Auto 7.5 % (3-14); Neutrophils Absolute Auto 5500 /uL (1500-7000); Neutrophils Percent Auto 71.2 % (50-75); Platelet Count 263 X10^3/uL (150-400); Red Blood Cell Count 4.82 X10^6/uL (4.5-5.9); Red Cell Distribution Width 13.1 % (11.6-14.8); White Blood Cell Count 7.8 X10^3/uL (4.5-11.0)
[2023-12-16 15:34] LABS: BUN Creatinine Ratio 32.3 (6-22); Blood Urea Nitrogen 40 mg/dL (9-20); Calcium 9.4 mg/dL (8.4-10.2); Carbon Dioxide 20 mmol/L (22-32); Chloride 101 mmol/L (98-107); Estimated Glomerular Filt Rate 60 mL/min (>60); Glucose 105 mg/dL (80-110); HEMOLYSIS < 15 (0-50); Potassium 4.7 mmol/L (3.4-5.1); Sodium 131 mmol/L (137-145)
== END ==
PROVIDERS: Family Provider Internal Medicine; PCP Internal Medicine; Referring Provider Internal Medicine Cardiovascular Disease; Visit Provider Internal Medicine Cardiovascular Disease
DX: I35.0 Nonrheumatic aortic (valve) stenosis (principal)
CPT/HCPCS: 36415; 80048; 85025

== ENCOUNTER → 2024-03-03 14:27 | Outpatient (CLI) | payer OTHER, SELFPAY ==
[2022-03-19 14:00] VITALS: BMI 21.3
--- NOTE | 2024-03-03 14:28 | DI.US.S_ITS ---
PROCEDURE: US SCROTUM INDICATIONS: L testicle pain and swelling TECHNIQUE: Real-time scanning was performed of the scrotum and testicles, with image documentation. Color and pulse Doppler interrogation was performed of both testicles. COMPARISON: [facility], , US SCROTUM, 07/01/2023, 8:56. FINDINGS: Right: Testicle is normal in size at 4.5 x 3.1 x 2.0 cm, and homogenous in echotexture. Epididymis is normal in overall size and morphology. Mild hydrocele is present. No varicocele. Overlying scrotal skin demonstrates slight appearance of thickening. Left: Testicle is normal in size at 4.1 x 3.6 x 3.1 cm, and homogeneous in echotexture. Epididymis is normal in overall size and morphology. No hydrocele or varicoceles. Overlying scrotal skin is normal in thickness. Doppler: Color and pulse Doppler demonstrate mild increased vascularity within the right testicle and epididymis.. Marked increased left testicular and epididymal vascularity. IMPRESSION: Bilateral increased flow within the testicle and epididymis, left greater than right most consistent with epididymo-orchitis. Dictated by: Cristina Ortega M.D. on 03/03/2024 at 16:26 Approved by: Cristina Ortega M.D. on 03/03/2024 at 16:29
== END ==
PROVIDERS: Family Provider Internal Medicine; PCP Internal Medicine; Referring Provider Physician Assistant; Visit Provider Physician Assistant
DX: N50.812 Left testicular pain (principal)
CPT/HCPCS: 76870; 93975

== ENCOUNTER 2024-03-03 15:28 | Emergency (ER) | payer OTHER, SELFPAY ==
[2022-03-19 14:00] VITALS: BMI 21.3
[2024-03-03 15:35] VITALS: BP 149/79; PULSE 85; RESP 16; TEMP 36.8; O2SAT 99; BMI 23.6
--- NOTE | 2024-03-03 16:02 | PC.NURSE ---
Pt reports left testicle swelling and pain. Pt states he had an US performed today and was then instructed to come to ER because of possible infection. Pt reports he self caths. Pt denies needing to self cath due to neurogenic bladder. Denies urine changes.
[2024-03-03 17:50] LABS: Add Manual Diff / Slide Review NO; Basophils Absolute Auto 0 /uL (0-100); Basophils Percent Auto 0.3 % (0-2); Eosinophils Absolute Auto 100 /uL (0-450); Eosinophils Percent Auto 1.4 % (2-4); Hematocrit 41.7 % (41-53); Hemoglobin 14.1 g/dL (13.5-17.5); Lymphocytes Absolute Auto 900 /uL (1100-4500); Lymphocytes Percent Auto 9.3 % (25-40); Mean Corpuscular HGB Conc 33.8 % (30-36); Mean Corpuscular Hemoglobin 29.5 PG (26-34); Mean Corpuscular Volume 87.2 fL (80-100); Monocytes Absolute Auto 800 /uL (0-900); Monocytes Percent Auto 7.7 % (3-14); Neutrophils Absolute Auto 8100 /uL (1500-7000); Neutrophils Percent Auto 81.3 % (50-75); Platelet Count 251 X10^3/uL (150-400); Red Blood Cell Count 4.78 X10^6/uL (4.5-5.9)
[2024-03-03 18:04] LABS: Lactate (Lactic Acid) 0.9 mmol/L (0.7-2.1)
[2024-03-03 18:05] LABS: Alanine Aminotransferase 31 IU/L (<50); Albumin 3.9 g/dL (3.5-5.0); Albumin Globulin Ratio 1.3 (1.0-2.8); Alkaline Phosphatase 91 U/L (38-126); Aspartate Aminotransferase 34 IU/L (17-59); BUN Creatinine Ratio 27.9 (6-22); Bilirubin Total 0.5 mg/dL (0.2-1.3); Blood Urea Nitrogen 41 mg/dL (9-20); Calcium 8.8 mg/dL (8.4-10.2); Carbon Dioxide 22 mmol/L (22-32); Chloride 101 mmol/L (98-107); Estimated Glomerular Filt Rate 49 mL/min (>60); Globulin 3.1 g/dL (1.7-4.1); Glucose 94 mg/dL (80-110); HEMOLYSIS < 15 (0-50); Potassium 4.6 mmol/L (3.4-5.1); Sodium 131 mmol/L (137-145)
[2024-03-03 18:26] LABS: Bacteria Urine Occasional (0-1); Culture Indicated Urine Cult Not Indicated; RBC Urine 5-10/HPF (0-5/HPF); Squamous Epithelial Cell Urine 0-1 /HPF (0-5/HPF); Urine Volume 10mL (spun); WBC Urine 1-5/HPF (0-5/HPF)
--- NOTE | 2024-03-03 18:46 | ED.RECABL ---
HPI - Recheck/Abnormal Lab/Rx <Shawnee Martinez PA-C - Last Filed: 03/03/24 19:12> General Chief Complaint: Recheck/Abnormal Lab/Rx Stated Complaint: sent from DI, severe scrotal infection Time Seen by Provider: 03/03/24 16:22 Source: patient Mode of arrival: Wheelchair History of Present Illness HPI narrative: 78-year-old male with past medical history aortic stenosis, umbilical hernia, essential hypertension, mixed hyperlipidemia, neurogenic bladder, BPH presents to the ED with 3-4 days of left scrotal pain. Patient was seen yesterday at the walk-in clinic, prescribed Bactrim empirically since patient did not want to come to the emergency room and get an ultrasound. Patient returned today to the ED since his symptoms worsen, especially with walking. Patient complains of left-sided testicular pain. Patient denies fever, chills, chest pain, shortness of breath, nausea, vomiting, abdominal pain, lightheadedness, dizziness, syncope. Given the neurogenic bladder, patient has to periodically catheterize to empty his bladder. Patient does endorse that he is not drinking enough water, since that increases the frequency of catheterization. Related Data Home Medications Medication Instructions Recorded Confirmed atorvastatin 40 mg tablet 40 mg PO DAILY 03/02/24 03/02/24 clopidogrel 75 mg tablet 75 mg PO DAILY 03/02/24 03/02/24 Previous Rx's Medication Instructions Recorded losartan 100 mg tablet 100 mg PO DAILY #90 tabs 01/26/20 minoxidil 10 mg tablet 10 mg PO QAM #90 tabs 01/26/20 amlodipine 10 mg tablet 10 mg PO DAILY #90 tabs 01/28/20 ferrous sulfate 325 mg (65 mg 325 mg PO DAILY #30 tabs 03/22/22 iron) tablet sulfamethoxazole 800 1 tab PO Q12H 10 days #20 tabs 03/02/24 mg-trimethoprim 160 mg tablet (Bactrim DS) levofloxacin 500 mg tablet 500 mg PO DAILY 10 days #10 tabs 03/03/24 Allergies Allergy/AdvReac Type Severity Reaction Status Date / Time No Known Drug Allergies Allergy Verified 03/03/24 15:37 Review of Systems <Shawnee Martinez PA-C - Last Filed: 03/03/24 19:12> Constitutional Constitutional: Denies chills, Denies fatigue, Denies fever(s), Denies frequent falls, Denies lethargy and Denies weakness Eyes Eyes: Denies change in vision, Denies eye discharge, Denies irritation and Denies loss of vision ENT Ears, Nose, Mouth, and Throat: Denies change in voice, Denies dizziness, Denies neck pain, Denies sore throat and Denies throat swelling Cardiovascular Cardiovascular: Denies chest pain, Denies irregular heart rhythm, Denies lightheadedness, Denies palpitations, Denies dyspnea, Denies dyspnea on exertion and Denies orthopnea Respiratory Respiratory: Denies cough, Denies dyspnea, Denies dyspnea on exertion and Denies wheezing Gastrointestinal Gastrointestinal: Denies abdominal pain, Denies change in bowel habits, Denies diarrhea, Denies nausea and Denies vomiting Genitourinary Genitourinary: Reports scrotal swelling and Reports testicular pain Musculoskeletal Musculoskeletal: Denies neck pain and Denies numbness Integumentary/Breasts Skin/Breast: Denies pruritus, Denies erythema, Denies rash and Denies wounds Neurologic Neurologic: Denies behavioral changes, Denies confusion, Denies dizziness, Denies frequent falls, Denies loss of vision, Denies numbness and Denies weakness Psychiatric Psychiatric: Denies anxiety, Denies behavioral changes, Denies confusion, Denies depression, Denies homicidal ideation and Denies suicidal ideation Endocrine Endocrine: Denies fatigue, Denies flushing and Denies palpitations Hematologic/Lymphatic Hematologic/Lymphatic: Denies easy bruising Allergic/Immunologic Allergic/Immunologic: Denies urticaria, Denies throat swelling and Denies wheezing Patient History <Shawnee Martinez PA-C - Last Filed: 03/03/24 19:12> Medical History Aortic stenosis Anxiety Flaccid neurogenic bladder Right inguinal hernia Elevated PSA BPH w urinary obs/LUTS FH: RANDI-BSO (total abdominal hysterectomy and bilateral salpingo-oophorectomy) Gout Stenosis of cervical spine with myelopathy Atonic bladder (~08/2019) Essential hypertension (01/11/15) Mixed hyperlipidemia Surgical History History of knee replacement (~2002) Status post cervical arthrodesis (~08/2019) Social History household members: family and none Smoking Status: Current every day smoker alcohol intake: former Smoking Status: Current every day smoker alcohol intake frequency: holidays/special occasions only Substance Use Type: does not use Exam <Shawnee Martinez PA-C - Last Filed: 03/03/24 19:12> Narrative Exam Narrative: Const General:?cooperative, healthy appearing and comfortable HENPA Head:?normal to inspection Ears:?hearing grossly normal bilaterally Nose:?external nose normal Face and sinus:?normal facial exam and sinuses nontender Mouth:?oral mucosae normal Throat:?posterior oropharynx normal Eyes General:?appearance normal, both eyes and all related structures Neck Neck:?normal visual inspection and no lymphadenopathy noted Resp Effort & Inspection:?normal respiratory effort Auscultation:?clear to auscultation bilaterally Cardio Rate:?regular rate Rhythm:?regular rhythm There is mild bilateral scrotal erythema. There is swelling of the left testicle greater than the right testicle. No perineal erythema, peroneal pain. Mild tenderness to palpation of bilateral testicles, left greater than right. Neuro General:?patient alert, patient awake and patient oriented x3 Initial Vital Signs Initial Vital Signs: Vital Signs Temperature 98.2 F 03/03/24 15:35 Pulse Rate 85 03/03/24 15:35 Respiratory Rate 16 03/03/24 15:35 Blood Pressure 149/79 H 03/03/24 15:35 Pulse Oximetry 99 03/03/24 15:35 Oxygen Delivery Method Room Air 03/03/24 15:35 <Marianne Kenney DO - Last Filed: 03/03/24 19:52> Initial Vital Signs Initial Vital Signs: Vital Signs Temperature 98.2 F 03/03/24 15:35 Pulse Rate 85 03/03/24 15:35 Respiratory Rate 16 03/03/24 15:35 Blood Pressure 149/79 H 03/03/24 15:35 Pulse Oximetry 99 03/03/24 15:35 Oxygen Delivery Method Room Air 03/03/24 15:35 Course <Shawnee Martinez PA-C - Last Filed: 03/03/24 19:12> Orders Ordered: ED Orders 03/03/24 17:32 CBC Auto Diff [Complete Blood Count AUTO DIFF] Stat CMP [Comprehensive Metabolic Panel] Stat Lactate (Lactic Acid) Stat 03/03/24 17:52 Chlamydia Gonorrhea PCR -URINE Stat Urine Microscopic Stat Discontinued Medications Ceftriaxone Sodium 2,000 mg/ (Sodium Chloride) 100 mls @ 200 mls/hr IV NOW ONE Stop: 03/03/24 18:31 Last Infusion: 03/03/24 19:39 Dose: Infused Documented By: Admin: 03/03/24 19:03 Dose: 200 mls/hr Documented By: LV Levofloxacin (Levofloxacin 250 Mg Tablet) 750 mg PO NOW ONE Stop: 03/03/24 18:31 Last Admin: 03/03/24 19:02 Dose: 750 mg Documented By: LV Vital Signs Vital signs: Vital Signs - 8 hr 03/03/24 15:35 03/03/24 19:40 Temperature 98.2 F 97.5 F L Pulse Rate 85 91 H Respiratory Rate 16 19 Blood Pressure 149/79 H 171/94 H Pulse Oximetry 99 98 Oxygen Delivery Method Room Air Room Air <Marianne Kenney DO - Last Filed: 03/03/24 19:52> Orders Ordered: ED Orders 03/03/24 17:32 CBC Auto Diff [Complete Blood Count AUTO DIFF] Stat CMP [Comprehensive Metabolic Panel] Stat Lactate (Lactic Acid) Stat 03/03/24 17:52 Chlamydia Gonorrhea PCR -URINE Stat Urine Microscopic Stat Discontinued Medications Ceftriaxone Sodium 2,000 mg/ (Sodium Chloride) 100 mls @ 200 mls/hr IV NOW ONE Stop: 03/03/24 18:31 Last Infusion: 03/03/24 19:39 Dose: Infused Documented By: Admin: 03/03/24 19:03 Dose: 200 mls/hr Documented By: LV Levofloxacin (Levofloxacin 250 Mg Tablet) 750 mg PO NOW ONE Stop: 03/03/24 18:31 Last Admin: 03/03/24 19:02 Dose: 750 mg Documented By: LV Vital Signs Vital signs: Vital Signs - 8 hr 03/03/24 15:35 03/03/24 19:40 Temperature 98.2 F 97.5 F L Pulse Rate 85 91 H Respiratory Rate 16 19 Blood Pressure 149/79 H 171/94 H Pulse Oximetry 99 98 Oxygen Delivery Method Room Air Room Air MDM - Recheck/Abnormal Lab/Rx <Shawnee Martinez PA-C - Last Filed: 03/03/24 19:12> Lab Data 03/03/24 17:32 03/03/24 17:32 Labs: Lab Results 03/03/24 03/03/24 Range/Units 17:32 17:52 WBC 10.0 (4.5-11.0) X10^3/uL RBC 4.78 (4.5-5.9) X10^6/uL Hgb 14.1 (13.5-17.5) g/dL Hct 41.7 (41-53) % MCV 87.2 (80-100) fL MCH 29.5 (26-34) PG MCHC 33.8 (30-36) % RDW 14.0 (11.6-14.8) % Plt Count 251 (150-400) X10^3/uL Neut % (Auto) 81.3 H (50-75) % Lymph % (Auto) 9.3 L (25-40) % [place] % (Auto) 7.7 (3-14) % Eos % (Auto) 1.4 L (2-4) % Baso % (Auto) 0.3 (0-2) % Neut # (Auto) 8100 H (4351-3519) /uL Lymph # (Auto) 900 L (9084-8755) /uL [place] # (Auto) 800 (0-900) /uL Eos # (Auto) 100 (0-450) /uL Baso # (Auto) 0 (0-100) /uL Sodium 131 L (137-145) mmol/L Potassium 4.6 (3.4-5.1) mmol/L Chloride 101 (98-107) mmol/L Carbon Dioxide 22 (22-32) mmol/L BUN 41 H (9-20) mg/dL Creatinine 1.47 H (0.66-1.25) mg/dL Estimated GFR 49 L (>60) mL/min BUN/Creatinine Ratio 27.9 H (6-22) Glucose 94 (80-110) mg/dL Lactate 0.9 (0.7-2.1) mmol/L Calcium 8.8 (8.4-10.2) mg/dL Total Bilirubin 0.5 (0.2-1.3) mg/dL AST 34 (17-59) IU/L ALT 31 (<50) IU/L Alkaline Phosphatase 91 (38-126) U/L Total Protein 7.0 (6.3-8.2) g/dL Albumin 3.9 (3.5-5.0) g/dL Globulin 3.1 (1.7-4.1) g/dL Albumin/Globulin Ratio 1.3 (1.0-2.8) Urine RBC 5-10/hpf H (0-5/HPF) Urine WBC 1-5/hpf (0-5/HPF) Ur Squamous Epith Cells 0-1 /hpf (0-5/HPF) Urine Bacteria Occasional (0-1) (None) Ur Culture Indicated? Cult not indicated Vol Urine Centrifuged 10ml (spun) Urine Dip Bedside Urine Glucose Negative Bedside Urine Bilirubin - Negative Bedside Urine Ketone - Negative Urine Specific [place] 1.010 Bedside Urine Occult Blood +++ Bedside Urine pH 6.0 Bedside Urine Protein ++ 100 Bedside Urine Urobilinogen - Negative Bedside Urine Nitrite - Negative Bedside Urine Leukocytes - Negative Esterase MDM Narrative Medical decision making narrative: 78-year-old male with past medical history aortic stenosis, umbilical hernia, essential hypertension, mixed hyperlipidemia, neurogenic bladder, BPH presents to the ED with 3-4 days of left scrotal pain. Concern for epididymal orchitis versus torsion versus UTI versus other. Ultrasound shows bilateral increased flow within the testicle and epididymis, left greater than right most consistent with epididymal orchitis. Labs show an YELITZA with creatinine at 1.47, GFR at 49. In December 2023, patient's creatinine was 1.24 and GFR was 60. Discussed findings with patient and encouraged increasing water intake. Dr. Martel from Urology was consulted. He advises an initial dose of Levaquin 750 mg in the ED as well as 2 g of Rocephin. Patient to be sent home with p.o. Levaquin 500 mg daily. Patient also advised to rest more, elevate the scrotum. Dr. Martel did advise to encourage patient that it will be several days to improve. Dr. Martel will check in with patient in a few days. ED return precautions were discussed with patient. Patient verbalized understanding. Medical records reviewed: Yes <Marianne Kenney, DO - Last Filed: 03/03/24 19:52> Lab Data Labs: Lab Results 03/03/24 03/03/24 Range/Units 17:32 17:52 WBC 10.0 (4.5-11.0) X10^3/uL RBC 4.78 (4.5-5.9) X10^6/uL Hgb 14.1 (13.5-17.5) g/dL Hct 41.7 (41-53) % MCV 87.2 (80-100) fL MCH 29.5 (26-34) PG MCHC 33.8 (30-36) % RDW 14.0 (11.6-14.8) % Plt Count 251 (150-400) X10^3/uL Neut % (Auto) 81.3 H (50-75) % Lymph % (Auto) 9.3 L (25-40) % [place] % (Auto) 7.7 (3-14) % Eos % (Auto) 1.4 L (2-4) % Baso % (Auto) 0.3 (0-2) % Neut # (Auto) 8100 H (5557-7171) /uL Lymph # (Auto) 900 L (6128-5182) /uL [place] # (Auto) 800 (0-900) /uL Eos # (Auto) 100 (0-450) /uL Baso # (Auto) 0 (0-100) /uL Sodium 131 L (137-145) mmol/L Potassium 4.6 (3.4-5.1) mmol/L Chloride 101 (98-107) mmol/L Carbon Dioxide 22 (22-32) mmol/L BUN 41 H (9-20) mg/dL Creatinine 1.47 H (0.66-1.25) mg/dL Estimated GFR 49 L (>60) mL/min BUN/Creatinine Ratio 27.9 H (6-22) Glucose 94 (80-110) mg/dL Lactate 0.9 (0.7-2.1) mmol/L Calcium 8.8 (8.4-10.2) mg/dL Total Bilirubin 0.5 (0.2-1.3) mg/dL AST 34 (17-59) IU/L ALT 31 (<50) IU/L Alkaline Phosphatase 91 (38-126) U/L Total Protein 7.0 (6.3-8.2) g/dL Albumin 3.9 (3.5-5.0) g/dL Globulin 3.1 (1.7-4.1) g/dL Albumin/Globulin Ratio 1.3 (1.0-2.8) Urine RBC 5-10/hpf H (0-5/HPF) Urine WBC 1-5/hpf (0-5/HPF) Ur Squamous Epith Cells 0-1 /hpf (0-5/HPF) Urine Bacteria Occasional (0-1) (None) Ur Culture Indicated? Cult not indicated Vol Urine Centrifuged 10ml (spun) Urine Dip Bedside Urine Glucose Negative Bedside Urine Bilirubin - Negative Bedside Urine Ketone - Negative Urine Specific [place] 1.010 Bedside Urine Occult Blood +++ Bedside Urine pH 6.0 Bedside Urine Protein ++ 100 Bedside Urine Urobilinogen - Negative Bedside Urine Nitrite - Negative Bedside Urine Leukocytes - Negative Esterase Discharge Plan Departure Patient Disposition: Home Clinical Impression: Acute epididymo-orchitis Instructions: Epididymitis Activity Restrictions/Additional Instructions: You were evaluated in the ED today for some testicular pain and swelling. The ultrasound did show epididymal orchitis which is an infection. Your labs also did show that your kidney function has somewhat decreased. The decrease in kidney function is most likely due to dehydration. It is imperative that you increase your oral water intake. You were given a dose of IV antibiotics as well as an oral antibiotic in the ED today. You were also being given a new prescription for levofloxacin which you will take for the next 10 days. Please discontinue the prior antibiotic which was Bactrim. Dr. Martel from [facility] was consulted, he will check in with you in the next few days. He also recommends that you rest a lot over the next several days and also elevate your scrotum by dropping some pillows. Return to the ED if you have worsening symptoms, fever, chills, persistent vomiting, worsening pain or swelling. Prescriptions: New levofloxacin 500 mg tablet 500 mg PO DAILY 10 Days Qty: 10 0RF No Action clopidogrel 75 mg tablet 75 mg PO DAILY atorvastatin 40 mg tablet 40 mg PO DAILY sulfamethoxazole-trimethoprim [Bactrim DS] 800-160 mg tablet 1 tab PO Q12H 10 Days Qty: 20 0RF losartan 100 mg tablet 100 mg PO DAILY Qty: 90 0RF minoxidil 10 mg tablet 10 mg PO QAM Qty: 90 0RF amlodipine 10 mg tablet 10 mg PO DAILY Qty: 90 0RF Rx Instructions: pt will need to be seen before next renewal ferrous sulfate 325 mg (65 mg iron) Tablet 325 mg PO DAILY Qty: 30 0RF Referrals: Norberto Hamm MD [Primary Care Provider] - Stand Alone Forms: Patient Portal/API/Survey ED Sign-out <Marianne Kenney DO - Last Filed: 03/03/24 19:52> Cosign ED Attending Cosignature Attestation: I was immediately available in the department for consultation. Case was discussed, labs imaging were reviewed. Urologic recommendations appreciated.
[2024-03-03] MEDS: levoFLOXacin 250 MG TABLET 750 MG PO (19:02)
[2024-03-03] MEDS: cefTRIAXone 2,000 MG in SODIUM CHLORIDE 0.9% 100 ML 200 MG IV (19:03)
[2024-03-03 19:40] VITALS: BP 171/94; PULSE 91; RESP 19; TEMP 36.4; O2SAT 98
[2024-03-03 19:44] LABS: Urine N gonorrhoeae NOT DETECTED
[2024-03-03 19:51] LABS: Urine Chlamydia NOT DETECTED
== END 2024-03-03 19:41 | disposition home or self-care (01) ==
PROVIDERS: Emergency Provider Student in an Organized Health Care Education/Training Program; Family Provider Internal Medicine; PCP Internal Medicine
DX: N45.3 Epididymo-orchitis (principal); N50.812 Left testicular pain
CPT/HCPCS: 76870; 80053; 81003; 81015; 83605; 85025; 87491; 87591; 93975; 96365; 99284; J0696

== ENCOUNTER 2024-03-13 11:41 | Emergency (ER) | payer OTHER, SELFPAY ==
[2022-03-19 14:00] VITALS: BMI 21.3
[2024-03-13] VITALS (7 sets, daily range): BP systolic 147–183; BP diastolic 82–95; PULSE 63–101; RESP 16; TEMP 36.7–36.8; O2SAT 94–99; BMI 22.9
--- NOTE | 2024-03-13 11:47 | ED.MALEGU ---
HPI - Male Genitourinary General Chief complaint: Recheck/Abnormal Lab/Rx Stated complaint: Infected Testicals,Meds aren't getting working Time Seen by Provider: 03/13/24 11:47 Source: patient, RN notes reviewed and old records reviewed Limitations: no limitations History of Present Illness HPI Narrative: 78-year-old male history of aortic stenosis, umbilical hernia, essential hypertension, mixed hyperlipidemia, neurogenic bladder, BPH presents with complaint of persistent scrotal infection was seen at the walk-in clinic prescribed Bactrim empirically and then came to the emergency department and was seen here on 03/03/2024. Patient was treated with Levaquin had 10 days total states he had phone consult with Urology who continued in the Levaquin for an additional 2 weeks but has not seen in the [id number]. He denies fevers or chills. No chest pain or shortness of breath. No nausea or vomiting. States he chronically self caths several times daily has not had any difficulties, has not had any new urinary drainage or discharge. He states testicle still has a little bit of discomfort describes it as sort of a burning sensation on the skin but also a little bit deeper. States it is uncomfortable particularly when moving or walking. States he feels like the swelling is slightly worse than it was initially. Patient states no open wounds. Does not seem to be spreading to other skin areas or the extremities. He denies any abdominal back or flank pain. Presents today as he states it has not really improved. Patient does not have any history of diabetes, states he has had prior neck surgery no prior urologic surgeries reported. He is on Plavix daily. No reported drug allergies. No tobacco, no regular alcohol, no recreational drugs. Related Data Home Medications Medication Instructions Recorded Confirmed atorvastatin 40 mg tablet 40 mg PO DAILY 03/02/24 03/02/24 clopidogrel 75 mg tablet 75 mg PO DAILY 03/02/24 03/02/24 Previous Rx's Medication Instructions Recorded losartan 100 mg tablet 100 mg PO DAILY #90 tabs 01/26/20 minoxidil 10 mg tablet 10 mg PO QAM #90 tabs 01/26/20 amlodipine 10 mg tablet 10 mg PO DAILY #90 tabs 01/28/20 ferrous sulfate 325 mg (65 mg 325 mg PO DAILY #30 tabs 03/22/22 iron) tablet levofloxacin 500 mg tablet 500 mg PO DAILY 2 weeks #14 tabs 03/04/24 Allergies Allergy/AdvReac Type Severity Reaction Status Date / Time No Known Drug Allergies Allergy Verified 03/13/24 11:48 Review of Systems Review of Systems ROS Unobtainable: All systems reviewed & are unremarkable except as noted in HPI and below Patient History Medical History Aortic stenosis Anxiety Flaccid neurogenic bladder Right inguinal hernia Elevated PSA BPH w urinary obs/LUTS FH: RANDI-BSO (total abdominal hysterectomy and bilateral salpingo-oophorectomy) Gout Stenosis of cervical spine with myelopathy Atonic bladder (~08/2019) Essential hypertension (01/11/15) Mixed hyperlipidemia Surgical History History of knee replacement (~2002) Status post cervical arthrodesis (~08/2019) Social History household members: family and none Smoking Status: Current every day smoker alcohol intake: former Smoking Status: Current every day smoker alcohol intake frequency: holidays/special occasions only Exam Narrative Exam Narrative: GENERAL: Alert and oriented x three, well-appearing elderly male in mild distress HEENT: Head normocephalic, atraumatic, EOMI, pupils reactive, face symmetric, moist mucous membranes NECK: Supple, full range of motion CARDIOVASCULAR: Regular rate and rhythm without murmurs, rubs or gallops. RESPIRATORY: Breath sounds equal bilaterally, no wheezes rales or rhonchi. ABDOMEN: Soft, nontender. Normoactive bowel sounds all 4 quadrants. No guarding or rebound, rigidity, no mass : No CVA tenderness. Male: normal external examination the penis, patient has a bilateral testicular enlargement, some mild erythema over testicles themselves, spares the penile area as well as the inguinal area increases of the skin, no lesions, no drainage no warmth, no penile discharge or lesions, testicles non-tender on exam there is fullness in the left compared to the right but no palpable mass, no fluctuance, no induration, cremasteric reflex intact, no inguinal hernias noted. EXTREMITIES: Normal range of motion, no clubbing or edema. Neurovascularly intact NEUROLOGICAL: Cranial nerves II through XII grossly intact. Moving all extremities SKIN: Warm, dry, no petechiae, no rashes or lesions noted. Initial Vital Signs Initial Vital Signs: Vital Signs Pulse Oximetry 99 03/13/24 11:45 Course Orders Ordered: ED Orders 03/13/24 12:20 CBC Auto Diff [Complete Blood Count AUTO DIFF] Stat CMP [Comprehensive Metabolic Panel] Stat Lactate (Lactic Acid) Stat Procalcitonin Stat 03/13/24 12:24 US scrotum Stat 03/13/24 12:39 UA Complete [Urinalysis and Microscopic] Stat 03/13/24 13:09 Blood Culture Stat 03/13/24 15:11 Urine Culture Stat Discontinued Medications Azithromycin (Azithromycin 250 Mg Tablet) 1,000 mg PO NOW ONE Stop: 03/13/24 15:22 Last Admin: 03/13/24 15:39 Dose: 1,000 mg Documented By: ANDRES Vital Signs Vital signs: Vital Signs - 8 hr 03/13/24 11:45 03/13/24 11:46 03/13/24 11:46 Temperature 98.0 F Pulse Rate 96 H Respiratory Rate 16 Blood Pressure 183/95 H 183/95 H Pulse Oximetry 99 98 Oxygen Delivery Method Room Air 03/13/24 11:46 03/13/24 12:18 03/13/24 12:30 Temperature Pulse Rate 101 H 73 97 H Respiratory Rate Blood Pressure Pulse Oximetry 98 98 97 Oxygen Delivery Method Room Air 03/13/24 13:00 03/13/24 13:00 03/13/24 13:30 Temperature Pulse Rate 63 66 Respiratory Rate Blood Pressure 161/85 H Pulse Oximetry 98 94 Oxygen Delivery Method Room Air 03/13/24 13:30 03/13/24 15:43 03/13/24 15:43 Temperature 98.2 F Pulse Rate 72 Respiratory Rate Blood Pressure 147/82 H 167/83 H Pulse Oximetry 98 Oxygen Delivery Method Room Air MDM - Male Genitourinary Lab Data 03/13/24 12:20 03/13/24 12:20 Labs: Lab Results 03/13/24 03/13/24 Range/Units 12:20 12:39 WBC 9.2 (4.5-11.0) X10^3/uL RBC 4.90 (4.5-5.9) X10^6/uL Hgb 14.3 (13.5-17.5) g/dL Hct 42.5 (41-53) % MCV 86.8 (80-100) fL MCH 29.1 (26-34) PG MCHC 33.6 (30-36) % RDW 14.4 (11.6-14.8) % Plt Count 338 (150-400) X10^3/uL Neut % (Auto) 80.9 H (50-75) % Lymph % (Auto) 9.6 L (25-40) % [place] % (Auto) 5.8 (3-14) % Eos % (Auto) 2.9 (2-4) % Baso % (Auto) 0.8 (0-2) % Neut # (Auto) 7400 H (6038-3228) /uL Lymph # (Auto) 900 L (9976-1256) /uL [place] # (Auto) 500 (0-900) /uL Eos # (Auto) 300 (0-450) /uL Baso # (Auto) 100 (0-100) /uL Sodium 130 L (137-145) mmol/L Potassium 4.7 (3.4-5.1) mmol/L Chloride 101 (98-107) mmol/L Carbon Dioxide 22 (22-32) mmol/L BUN 38 H (9-20) mg/dL Creatinine 1.12 (0.66-1.25) mg/dL Estimated GFR > 60 (>60) mL/min BUN/Creatinine Ratio 33.9 H (6-22) Glucose 96 (80-110) mg/dL Lactate 1.0 (0.7-2.1) mmol/L Calcium 8.8 (8.4-10.2) mg/dL Total Bilirubin 0.5 (0.2-1.3) mg/dL AST 34 (17-59) IU/L ALT 24 (<50) IU/L Alkaline Phosphatase 75 (38-126) U/L Total Protein 6.5 (6.3-8.2) g/dL Albumin 3.8 (3.5-5.0) g/dL Globulin 2.7 (1.7-4.1) g/dL Albumin/Globulin Ratio 1.4 (1.0-2.8) Procalcitonin 0.114 (<0.5) ng/mL Urine Color Yellow Urine Appearance Clear Urine pH 6.0 (4.5-8.0) Ur Specific [place] 1.010 (1.000-1.035) Urine Protein 2+ H (Negative) Urine Glucose (UA) Negative (Negative) g/dL Urine Ketones Negative (NEGATIVE) Urine Occult Blood 1+ H (Negative) Urine Nitrate Negative (Negative) Urine Bilirubin Negative (NEGATIVE) Urine Urobilinogen 0.2 (0.2) E.U./dL Ur Leukocyte Esterase Negative (NEGATIVE) Urine RBC 5-10/hpf H (0-5/HPF) Urine WBC 1-5/hpf (0-5/HPF) Ur Squamous Epith Cells 1-5 /hpf (0-5/HPF) Urine Bacteria Occasional (0-1) (None) Ur Culture Indicated? Cult not indicated Vol Urine Centrifuged 10ml (spun) Imaging Data scrotum US: Radiologist's Impression: Thanh Cowan??78??M??1945 ? Allergy/Adv: No Known Drug Allergies Close Scrotum Ultrasound (Signed) Regis Tam - 03/13/24 Scrotum Ultrasound (Signed) Cristina Ortega - 03/03/24 Echocardiogram Ultrasound (Signed) Frdia Servin - 09/30/23 Scrotum Ultrasound (Signed) Jacky Herrera - 07/01/23 Telemetry Strips 03/19/[address] (Signed) Zhou Dunbar - 03/19/22 Chest X-Ray (Signed) aWyne Zambrano - 03/19/22 Cervical Spine MRI (Signed) Cristina Ortega - 08/31/19 Brain MRI (Signed) Winsome Alvarado - 08/31/[address] (Signed) Ann Marie Alcantar - 08/31/19 Echocardiogram Ultrasound (Signed) Frida Servin - 01/15/19 [place] [address] Ultrasound Report Signed Patient: Thanh Cowan MR#: [id number] : 1945 Acct:[id number] Age/Sex: 78 / M Date of Service: 03/13/24 Loc: ED Accession Number: [id number] Procedure: US scrotum Ordering Provider: Marianne Kenney D.O. PROCEDURE: US SCROTUM INDICATIONS: scortal swelling pain, on abx, US on 03/03/24 slightly worse. TECHNIQUE: Real-time scanning was performed of the scrotum and testicles, with image documentation. Color and pulse Doppler interrogation was performed of both testicles. COMPARISON: [facility], US, US SCROTUM, 03/03/2024, 15:05. [facility], US, US SCROTUM, 07/01/2023, 8:56. FINDINGS: Right: Testicle is normal in size at 2.9 x 1.9 x 4.1 cm, and homogenous in echotexture. Epididymis is normal in overall size and morphology. No hydrocele or varicoceles. Overlying scrotal skin is normal in thickness. Left: Testicle is normal in size at 2.5 x 3.4 x 4.0 cm, and homogeneous in echotexture. Epididymis is normal in overall size and morphology. A moderate septated hydrocele is present on the left, previously the case also. Edema is present adjacent to the left epididymal tail with a small associated fluid collection measuring 3 x 5 x 6 mm. No varicoceles. Overlying scrotal skin is normal in thickness. Doppler: Color and pulse Doppler demonstrate normal right-side and asymmetric elevated left side arterial flow. IMPRESSION: Persistent left epididymitis and orchitis with associated hyperemia as was previously the case. A moderate-sized left hydrocele with internal septations persist. Infected hydrocele cannot be entirely excluded. Dictated by: Regis Tam M.D. on 03/13/2024 at 13:47 Approved by: Regis Tam M.D. on 03/13/2024 at 13:50 [facility] Narrative Medical decision making narrative: 78-year-old male presents with complaint of persistent slightly worsened swelling of bilateral testicles patient was seen here on 03/03/2024 for acute epididymo-orchitis has been on Levaquin since not rapidly worsening but not really improving. Patient is initially received Bactrim but was changed to Levaquin. Has not additional 1-2 weeks of oral antibiotics that he has not completed. White count of 9.2 hemoglobin of 14 platelets of 338. Sodium 130 potassium 4.7 chloride of 101 CO2 22 BUN 38 creatinine of 1.12 glucose of 96 LFTs are negative procalcitonin 0.114. lactate is 1. Scrotal ultrasound persistent left epididymitis and orchitis with associated hyperemia as previously moderate size left hydrocele with internal septations persist infected hydrocele can not be entirely excluded overlying skin is normal thickness. Edema is also present adjacent to the left epididymal tail small associated fluid collection measuring 3 x 5 x 6 mm. Right testicle is normal. 1520L Spoke with Dr. Natarajan, asked if we have a urine culture I do not have 1 available to myself. He notes would be appropriate if necessary to switch the patient's antibiotics. 1533:Consult with urology, Dr. Martel: Patient's urine culture was negative he had office call in 14 additional days Levaquin like the patient to see him this coming week. Discussed he feels patient has probably needs a more prolonged course of antibiotics does ask us to give a 1 time dose of 1 g azithromycin. He was reviewed patient's labs, urine and imaging today. Discharge Plan Departure Patient Disposition: Home Clinical Impression: Orchitis and epididymitis Instructions: DI for Epididymitis Activity Restrictions/Additional Instructions: Please call, touch base with Dr. Martel his office he would like to see you this upcoming week. He did note your recent urine culture was negative. He asked that we add additional dose of oral antibiotic here in the department but to continue on your Levaquin at this time, feels you will likely need a more prolonged course of oral antibiotics. Please continue the prescription for 14 days of Levaquin. Please return for fevers, increasing pain, swelling, redness, difficulties with self catheterization, new abdominal back or flank pain, any wounds or drainage or other new or concerning changes. Prescriptions: No Action clopidogrel 75 mg tablet 75 mg PO DAILY atorvastatin 40 mg tablet 40 mg PO DAILY losartan 100 mg tablet 100 mg PO DAILY Qty: 90 0RF minoxidil 10 mg tablet 10 mg PO QAM Qty: 90 0RF amlodipine 10 mg tablet 10 mg PO DAILY Qty: 90 0RF Rx Instructions: pt will need to be seen before next renewal levofloxacin 500 mg tablet 500 mg PO DAILY 14 Days Qty: 14 0RF Rx Instructions: Continue after you complete the ER prescription. ferrous sulfate 325 mg (65 mg iron) Tablet 325 mg PO DAILY Qty: 30 0RF Referrals: Norberto Hamm MD [Primary Care Provider] - Simón Martel MD [Physician] - Stand Alone Forms: Patient Portal/API/Survey
--- NOTE | 2024-03-13 12:24 | DI.US.S_ITS ---
PROCEDURE: US SCROTUM INDICATIONS: scortal swelling pain, on abx, US on 03/03/24 slightly worse. TECHNIQUE: Real-time scanning was performed of the scrotum and testicles, with image documentation. Color and pulse Doppler interrogation was performed of both testicles. COMPARISON: [facility], US, US SCROTUM, 03/03/2024, 15:05. [facility], US, US SCROTUM, 07/01/2023, 8:56. FINDINGS: Right: Testicle is normal in size at 2.9 x 1.9 x 4.1 cm, and homogenous in echotexture. Epididymis is normal in overall size and morphology. No hydrocele or varicoceles. Overlying scrotal skin is normal in thickness. Left: Testicle is normal in size at 2.5 x 3.4 x 4.0 cm, and homogeneous in echotexture. Epididymis is normal in overall size and morphology. A moderate septated hydrocele is present on the left, previously the case also. Edema is present adjacent to the left epididymal tail with a small associated fluid collection measuring 3 x 5 x 6 mm. No varicoceles. Overlying scrotal skin is normal in thickness. Doppler: Color and pulse Doppler demonstrate normal right-side and asymmetric elevated left side arterial flow. IMPRESSION: Persistent left epididymitis and orchitis with associated hyperemia as was previously the case. A moderate-sized left hydrocele with internal septations persist. Infected hydrocele cannot be entirely excluded. Dictated by: Regis Tam M.D. on 03/13/2024 at 13:47 Approved by: Regis Tam M.D. on 03/13/2024 at 13:50
[2024-03-13 12:32] LABS: Add Manual Diff / Slide Review NO; Basophils Absolute Auto 100 /uL (0-100); Basophils Percent Auto 0.8 % (0-2); Eosinophils Absolute Auto 300 /uL (0-450); Eosinophils Percent Auto 2.9 % (2-4); Hematocrit 42.5 % (41-53); Hemoglobin 14.3 g/dL (13.5-17.5); Lymphocytes Absolute Auto 900 /uL (1100-4500); Lymphocytes Percent Auto 9.6 % (25-40); Mean Corpuscular HGB Conc 33.6 % (30-36); Mean Corpuscular Hemoglobin 29.1 PG (26-34); Mean Corpuscular Volume 86.8 fL (80-100); Monocytes Absolute Auto 500 /uL (0-900); Monocytes Percent Auto 5.8 % (3-14); Neutrophils Absolute Auto 7400 /uL (1500-7000); Neutrophils Percent Auto 80.9 % (50-75); Platelet Count 338 X10^3/uL (150-400); Red Cell Distribution Width 14.4 % (11.6-14.8); White Blood Cell Count 9.2 X10^3/uL (4.5-11.0)
[2024-03-13 12:42] LABS: Alanine Aminotransferase 24 IU/L (<50); Albumin 3.8 g/dL (3.5-5.0); Albumin Globulin Ratio 1.4 (1.0-2.8); Alkaline Phosphatase 75 U/L (38-126); Aspartate Aminotransferase 34 IU/L (17-59); BUN Creatinine Ratio 33.9 (6-22); Bilirubin Total 0.5 mg/dL (0.2-1.3); Blood Urea Nitrogen 38 mg/dL (9-20); Calcium 8.8 mg/dL (8.4-10.2); Carbon Dioxide 22 mmol/L (22-32); Chloride 101 mmol/L (98-107); Estimated Glomerular Filt Rate > 60 mL/min (>60); Globulin 2.7 g/dL (1.7-4.1); Glucose 96 mg/dL (80-110); HEMOLYSIS 25 (0-50); Potassium 4.7 mmol/L (3.4-5.1); Sodium 130 mmol/L (137-145); Total Protein 6.5 g/dL (6.3-8.2)
[2024-03-13 12:59] LABS: Procalcitonin 0.114 ng/mL (<0.5)
[2024-03-13 13:25] LABS: Appearance Urine UA CLEAR; Bilirubin Urine UA NEGATIVE (NEGATIVE); Color Urine UA YELLOW; Glucose Urine UA NEGATIVE (Negative); Ketones Urine UA NEGATIVE (NEGATIVE); Leukocyte Esterase Urine UA NEGATIVE (NEGATIVE); Nitrite Urine UA NEGATIVE (Negative); Occult Blood Urine UA 1+ (Negative); Protein Urine UA 2+ (Negative); Urobilinogen Urine UA 0.2 E.U./dL (0.2)
[2024-03-13 13:32] LABS: Bacteria Urine Occasional (0-1); Culture Indicated Urine Cult Not Indicated; RBC Urine 5-10/HPF (0-5/HPF); Squamous Epithelial Cell Urine 1-5 /HPF (0-5/HPF); Urine Volume 10mL (spun); WBC Urine 1-5/HPF (0-5/HPF)
[2024-03-13] MEDS: AZITHROMYCIN 250 MG TABLET 1000 MG PO (15:39)
== END 2024-03-13 15:45 | disposition home or self-care (01) ==
PROVIDERS: Emergency Provider Emergency Medicine; Family Provider Internal Medicine; PCP Internal Medicine
DX: N45.3 Epididymo-orchitis (principal)
CPT/HCPCS: 36415; 76870; 80053; 81001; 83605; 84145; 85025; 87040; 87086; 93975; 99283; 99284

== ENCOUNTER → 2024-04-16 13:38 | Outpatient (CLI) | payer OTHER, SELFPAY ==
[2022-03-19 14:00] VITALS: BMI 21.3
[2024-04-16 15:15] LABS: Add Manual Diff / Slide Review NO; Basophils Absolute Auto 0 /uL (0-100); Basophils Percent Auto 0.4 % (0-2); Eosinophils Absolute Auto 200 /uL (0-450); Hematocrit 41.5 % (41-53); Hemoglobin 14.1 g/dL (13.5-17.5); Lymphocytes Absolute Auto 1200 /uL (1100-4500); Lymphocytes Percent Auto 15.7 % (25-40); Mean Corpuscular HGB Conc 33.9 % (30-36); Mean Corpuscular Hemoglobin 29.7 PG (26-34); Mean Corpuscular Volume 87.5 fL (80-100); Monocytes Absolute Auto 600 /uL (0-900); Monocytes Percent Auto 7.4 % (3-14); Neutrophils Absolute Auto 5700 /uL (1500-7000); Neutrophils Percent Auto 73.5 % (50-75); Platelet Count 238 X10^3/uL (150-400); Red Blood Cell Count 4.74 X10^6/uL (4.5-5.9); Red Cell Distribution Width 14.6 % (11.6-14.8); White Blood Cell Count 7.8 X10^3/uL (4.5-11.0)
[2024-04-16 15:47] LABS: BUN Creatinine Ratio 31.6 (6-22); Blood Urea Nitrogen 36 mg/dL (9-20); Calcium 9.1 mg/dL (8.4-10.2); Carbon Dioxide 23 mmol/L (22-32); Chloride 99 mmol/L (98-107); Estimated Glomerular Filt Rate > 60 mL/min (>60); Glucose 141 mg/dL (80-110); HEMOLYSIS < 15 (0-50); Potassium 4.3 mmol/L (3.4-5.1); Sodium 131 mmol/L (137-145)
== END ==
LOC: LAB 13:40
PROVIDERS: Family Provider Internal Medicine; PCP Internal Medicine; Referring Provider Internal Medicine Interventional Cardiology; Visit Provider Internal Medicine Interventional Cardiology
DX: I35.0 Nonrheumatic aortic (valve) stenosis (principal)
CPT/HCPCS: 36415; 80048; 85025

== ENCOUNTER → 2024-06-03 10:18 | Outpatient (CLI) | payer OTHER, SELFPAY ==
[2024-05-07 09:45] VITALS: BMI 21.3
[2024-06-03 10:54] LABS: Hematocrit 36.1 % (41-53); Hemoglobin 12.6 g/dL (13.5-17.5); Mean Corpuscular HGB Conc 34.9 % (30-36); Mean Corpuscular Hemoglobin 30.5 PG (26-34); Mean Corpuscular Volume 87.4 fL (80-100); Platelet Count 306 X10^3/uL (150-400); Red Blood Cell Count 4.13 X10^6/uL (4.5-5.9); Red Cell Distribution Width 14.6 % (11.6-14.8); White Blood Cell Count 8.2 X10^3/uL (4.5-11.0)
[2024-06-03 11:13] LABS: BUN Creatinine Ratio 32.2 (6-22); Blood Urea Nitrogen 38 mg/dL (9-20); Calcium 8.9 mg/dL (8.4-10.2); Carbon Dioxide 24 mmol/L (22-32); Chloride 101 mmol/L (98-107); Estimated Glomerular Filt Rate > 60 mL/min (>60); Glucose 93 mg/dL (80-110); HEMOLYSIS < 15 (0-50); Potassium 5.1 mmol/L (3.4-5.1); Sodium 132 mmol/L (137-145)
== END ==
LOC: LAB 10:20
PROVIDERS: Family Provider Internal Medicine; PCP Internal Medicine; Referring Provider Internal Medicine; Visit Provider Internal Medicine
DX: I35.0 Nonrheumatic aortic (valve) stenosis (principal)
CPT/HCPCS: 36415; 80048; 85027

== ENCOUNTER → 2024-06-03 | Outpatient (CLI) | payer OTHER, SELFPAY ==
[2022-03-19 14:00] VITALS: BMI 21.3
[2024-05-07 09:45] VITALS: BMI 21.3
--- NOTE | 2024-06-03 09:06 | DI.ECHO.S_ITS ---
[facility] : : [address] : : [place] : : [id number] : : Phone: [phone] Echocardiogram Report + + :Name: BABAR KAT Study Date: 06/03/2024 Height: 70 in : :Hospital ReadingLocation: Weight: 160 lb : : Gender: Male BSA: 1.9 m2 : :: 1945 Age: 78 yrs BP: 157/78 mmHg: :Reason For Study: S/P TAVR : :Ordering Physician: KARSTEN, : :FARIBA Performed By: Enedina Combs : :Referring: FARIBA SHELLEY : + + Interpretation Summary The ejection fraction is estimated to be 50-55%. Grade II diastolic dysfunction. The right ventricular systolic function is normal. There is mild mitral regurgitation. There is a prosthetic aortic valve, well seated. There is mild perivalvular leak. The IVC is of normal diameter and collapses greater than 50% with a sniff. This suggests a low right atrial pressure of 3 mm Hg. There is a small pericardial effusion noted, noted on prior echo done in April 2024. Procedure: A two-dimensional transthoracic echocardiogram with color flow and Doppler was performed. The study quality was technically adequate. Comparison is made with the echocardiogram of . The heart rate ranged between 69-76 bpm during the study. Left Ventricle: The left ventricle is mildly dilated. There is normal left ventricular wall thickness. The ejection fraction is estimated to be 50-55%. Septal motion is consistent with conduction abnormality. Grade II diastolic dysfunction. Right Ventricle: The right ventricle is mildly dilated. The right ventricular systolic function is normal. Atria: The left atrium is mildly dilated. Right atrial size is normal. There is a catheter/pacemaker lead seen in the right atrium. There is no Doppler evidence for an interatrial shunt. Mitral Valve: The mitral valve leaflets appear to open well. There is mild mitral regurgitation. Aortic Valve: There is a prosthetic aortic valve. The peak aortic velocity is 2.6 m/sec. The aortic valve mean gradient is 14 mmHg. Tricuspid Valve: The tricuspid valve leaflets are thin and pliable. No tricuspid regurgitation. Comparison with the previous study is not possible because this was unable to be assessed on the previous study. Pulmonic Valve: The pulmonic valve is not well visualized. There is mild pulmonic regurgitation. Great Vessels: The dimensions of the ascending aorta are normal. The IVC is of normal diameter and collapses greater than 50% with a sniff. This suggests a low right atrial pressure of 3 mm Hg. Pericardium/ Pleura There is a small pericardial effusion noted. There is no pleural effusion. MMode/2D Measurements & Calculations LVIDd: 6.0 cm LVOT diam: 1.9 cm LVIDs: 4.2 cm asc Aorta Diam: 3.5 cm FS: 30.8 % Ao Arch Diam (Prox Trans): 2.6 cm IVSd: 1.1 cm LVPWd: 1.00 cm LV pinto. diameter/BSA (cm/m^2): 3.2 LV sys. diameter/BSA (cm/m^2): 2.2 LA A2 area: 23.1 cm2 RA long axis: 5.1 cm LA A4 area: 23.4 cm2 RA area: 17.8 cm2 LA length (vol): 6.8 cm RA vol: 52.9 ml LA vol: 67.6 ml RA : 27.8 ml/m2 LA vol index: 35.6 ml/m2 IVC diam: 1.4 cm RVD1 (basal): 4.4 cm TAPSE: 1.7 cm Doppler Measurements & Calculations Ao V2 max: 266.3 cm/sec MV E max rocky: 92.1 cm/sec Ao V2 mean: 174.6 cm/sec MV A max rocky: 147.1 cm/sec Ao max P.4 mmHg MV E/A: 0.63 Ao mean P.3 mmHg Med Peak E' Rocky: 3.8 cm/sec Ao V2 VTI: 55.8 cm E/E' med: 24.5 Lat Peak E' Rocky: 5.7 cm/sec E/E' lat: 16.0 E/e' average: 20.3 MV dec time: 0.27 sec PA V2 max: 106.5 cm/sec MV V2 mean: 100.0 cm/sec PA V2 mean: 76.1 cm/sec MV mean P.6 mmHg PA mean P.5 mmHg MV V2 VTI: 36.1 cm PA pr(Accel): 23.8 mmHg Reading Physician:03:10 PM
== END ==
LOC: ECHO 09:04
PROVIDERS: Family Provider Internal Medicine; PCP Internal Medicine; Referring Provider Internal Medicine Cardiovascular Disease; Visit Provider Internal Medicine Cardiovascular Disease
DX: I37.1 Nonrheumatic pulmonary valve insufficiency (principal); I34.0 Nonrheumatic mitral (valve) insufficiency; I31.39 Other pericardial effusion (noninflammatory); Z95.2 Presence of prosthetic heart valve
CPT/HCPCS: 36415; 80048; 85027; 93306

== ENCOUNTER → 2025-02-04 13:37 | Outpatient (CLI) | payer OTHER, SELFPAY ==
[2025-02-04 12:48] VITALS: BMI 21.3
[2025-02-04 14:23] LABS: Bilirubin Urine UA NEGATIVE (NEGATIVE); Color Urine UA YELLOW; Glucose Urine UA NEGATIVE (Negative); Ketones Urine UA NEGATIVE (NEGATIVE); Leukocyte Esterase Urine UA TRACE (NEGATIVE); Nitrite Urine UA POSITIVE (Negative); Occult Blood Urine UA 2+ (Negative); Protein Urine UA 3+ (Negative); Specific Gravity Urine UA 1.020 (1.000-1.035); Urobilinogen Urine UA 0.2 E.U./dL (0.2); pH Urine UA 6.0 (4.5-8.0)
[2025-02-04 14:35] LABS: Appearance Urine UA Slightly Cloudy
[2025-02-04 14:36] LABS: Culture Indicated Urine Specimen Cultured
== END ==
PROVIDERS: Family Provider Internal Medicine; PCP Internal Medicine; Referring Provider Urology; Visit Provider Urology
DX: N40.1 Benign prostatic hyperplasia with lower urinary tract symptoms (principal); N13.8 Other obstructive and reflux uropathy
CPT/HCPCS: 81001; 87077; 87086; 87186